=== PATIENT | male | born 1940 | race Caucasian/White ===

== ENCOUNTER 2023-11-28 07:35 | Inpatient (IN) | payer MEDICARE, SELFPAY ==
[2023-11-28] VITALS (79 sets, daily range): BP systolic 62–151; BP diastolic 35–88; BMI 20.8
[2023-11-28] MEDS: TYLENOL/FEVERALL 650 MG RECTAL (04:30)
[2023-11-28 04:42] LABS: % Basophils 0.1 % (0-2); % Immature Granulocytes 0.4 % (0-0.5); % Lymphocytes 1.7 % (20.5-51.1); % Monocytes 0.6 % (1.7-9.3); % Neutrophils 97.2 % (42.2-75.2); Absolute Lymphocytes 0.2 10^3/uL (1.2-3.4); Absolute Monocytes 0.1 10^3/uL (0.1-0.6); Absolute Neutrophils 9.4 10^3/uL (1.4-6.5); Hematocrit 37.7 % (39.0-52.0); Hemoglobin 13.1 g/dL (13.0-18.0); Mean Corp Hgb Conc. 34.7 g/dL (33.0-37.0); Mean Corpuscular Volume 86.5 fL (80.0-94.0); Mean Platelet Volume 9.1 fL (7.4-10.4); Nucleated Red Blood Cells % 0 % (-); Platelet Count 337 10^3/uL (130-400); Red Blood Cell Count 4.36 10^6/uL (4.70-6.10); Red Cell Dist. Width 13.5 % (11.5-14.5); White Blood Cell Count 9.7 10^3/uL (4.8-10.8)
[2023-11-28] MEDS: NSS 2000 IV (04:49)
--- NOTE | 2023-11-28 04:51 | ED.GENMED ---
History of Present Illness
General
Chief Complaint: Fever
Source: patient, ambulance crew, custodial and previous hospital records (Hospitalization September 29 to October 06 of this year for aspiration pneumonia, influenza A, acute CHF, delirium, urinary retention requiring Qiu catheter)
Exam Limitations: clinical condition and dementia
Time Seen by Provider: 11/28/23 04:20
Travel History
Have you had any contact with someone who has COVID-19?: No
Do you have any symptoms of coronavirus? Fever > 100 degrees, chills, cough, shortness of breath, sore throat, loss of taste or smell, muscle aches, or headache?: No
History of Present Illness
History of Present Illness:
This is an 83-year-old gentleman who resides at a local custodial. He has history of dementia, hypertension, chronic CHF with reduced EF at 35 to 40%, BPH with urinary retention requiring chronic indwelling Qiu catheter.
Most recently hospitalized September of this year for acute hypoxic respiratory insufficiency secondary to influenza bronchitis as well as iatrogenic fluid overload and aspiration pneumonia. Was noted to have acute urinary retention requiring Qiu
catheter placement at that time which has remained in place.
According to EMS they were originally called out to the custodial for seizure-like activity. Upon arrival found an elderly gentleman, confused, significantly hot to touch noted to be febrile.
Similar brief seizure-like activity reported during presentation for hospitalization in September and found to have rigors related to fever.
According to EMS patient is currently being treated for a UTI with an antibiotic over the past 2 to 3 days. There is no record of current antibiotic on med list provided from custodial records.
There has been no report of vomiting nor diarrhea. No recent falls nor injuries.
History is limited due to clinical condition and history of dementia.
Upon arrival rectal temp 105.2 �F. No report of antipyretics administered.
Past History
Past History
ED Past Medical History: Asthma, CHF (Chronic CHF with reduced EF at 35 to 40%.), HTN, Hypercholesterolemia and Other (Senile dementia, aspiration pneumonia, BPH-urinary retention requiring Qiu catheter, UTI)
ED Past Surgical History: Other (Deviated septum repair, hernia repair, skin cancer removed from face and head)
Social History
Tobacco: Non-smoker
Alcohol: Occasional
Drug: None
Personal:
Living: custodial
Employment: Retired
Family History
Family History: Other (Noncontributory)
Phy Exam
Physical Exam
Physical Exam:
GENERAL: Elderly frail-appearing gentleman, moderately ill in appearance. Mildly drowsy but briefly opens his eyes to verbal stimuli, answers yes and no questions appropriately.
EYE: pupils equal and reactive. anicteric. There is scant yellowish lid crusting bilaterally but no erythema nor lid edema.
NECK: Supple, nontender, no meningismus, no significant adenopathy. No JVD.
ENT: posterior pharynx is clear, oral mucosa is dry. Lips are significantly dry. TM clear b/l, nares patent.
CARDIAC: Regular rhythm, tachycardic at 150. no murmur.
LUNGS: Very mild resting tachypnea, no cough appreciated. Scant bibasilar rales otherwise clear to auscultation.
ABDOMEN: Soft, nondistended, mild suprapubic tenderness to palpation, Qiu catheter in place with scant blood-tinged urine in qiu bag, no active urine draining. No r/g, no cvat. normoactive BS.
NEUROLOGICAL: Mildly drowsy, answering yes and no questions appropriately, oriented x 1, no focal neuro deficits.
SKIN: Significantly hot to touch and dry, normal color, fair turgor, skin intact. No rash.
MUSCULOSKELETAL: No C/C/E. peripheral pulses are full and equal b/l. No palpable tenderness.
PSYCH: Moderately agitated with painful procedures otherwise cooperative.
Course
Orders/Labs/Results
Orders:
Orders
11/28/23 04:12
Electrocardiogram (*1) Urgent
Reason for Study: Other
Other Reason for Exam: Possible Sepsis
Cardiac Monitoring- Treatment ONCE
EKG- Treatment ONCE
IV Insert/Care/Rem.- Treatment PRN
Acetaminophen [Tylenol/Feverall] 650 mg .ROUTE .STK-MED ONE
O2 Therapy [RESP] Urgent
Titrate/Wean O2 to maintain O2 sat greater than (%): 93
Special Instructions: TO MAINTAIN CONTINUOUS O2 SATS > OR = 93%
Pulse Ox/cont/shift [RESP] Urgent
Quantity: 1
Special Instructions: CONTINUOUS
11/28/23 04:15
Acetaminophen [Tylenol/Feverall] 650 mg .ROUTE .STK-MED ONE
11/28/23 04:22
Complete Blood Count/With Diff Urgent
Comprehensive Metabolic Panel Urgent
Lactic Acid Q4H
Comment: ON ICE, CANCEL 2ND ORDER IF FIRST LACTIC ACID LEVEL <2
Urinalysis Reflex To Culture Urgent
Date Specimen was Collected: 11/28/23
Time Specimen was Collected: 04:12
Urine Microscopic Reflex Cult Urgent
Blood Culture Q30M
LUIS Source: Blood/Venous
Specimen Description:
Comment: FROM 2 SEPARATE SITES
Blood Culture Q30M
LUIS Source: Blood/Venous
Specimen Description:
Comment: FROM 2 SEPARATE SITES
Urine Culture Urgent
LUIS Source: U
Specimen Description:
Date Specimen was Collected: 11/28/23
Time Specimen was Collected: 04:12
11/28/23 04:41
Qiu Placement- Treatment ONCE
Reason for insertion: Chronic Qiu on Admit
0.9% Sodium Chloride 1000 ml [Nss] 2,000 ml IV BOLUS
11/28/23 05:01
CR Chest Portable - 1 View Urgent
Comment:
Reason For Exam: fever, sepsis
Reason Study Needs to be Portable: Patient Unstable
11/28/23 05:27
Cefepime HCl [Maxipime] 2,000 mg IV NOW STA
11/28/23 05:29
Gentamicin Sulfate [Gentamicin] 120 mg 0.9% Sodium Chloride [Nss] 50 ml IV NOW
11/28/23 05:33
NORepinephrine 4 MG/250 ML [Levophed] 4 mg in 250 ml IV NOW
Initial dose in mcg/min, then titrate:: 2
Titrate to keep:: MAP > 65 mmHg
Titrate by mcg/min:: 1-2 mcg/min
Frequency of titrations (minutes):: 5
Maximum dose in ICU in mcg/min:: 30
Maximum dose in IMU in mcg/min:: 8
Maximum dose in IVU in mcg/min:: 4
Begin to taper infusion when:: Remained at goal for 4hrs
Taper by mcg/min:: 1-2 mcg/min
Frequency of taper (minutes) if patient maintains goal:: 30
Taper to off?: Yes
If infusion off & no longer maintaining goal:: Contact Provider
11/28/23 08:15
Lactic Acid Q4H
Comment: ON ICE, CANCEL 2ND ORDER IF FIRST LACTIC ACID LEVEL <2
Abnormal Lab Results
11/28/23
04:22
RBC 4.36 L 10^6/uL
(4.70-6.10)
Hct 37.7 L %
(39.0-52.0)
Absolute Neuts (auto) 9.4 H 10^3/uL
(1.4-6.5)
Absolute Lymphs (auto) 0.2 L 10^3/uL
(1.2-3.4)
Neutrophils % 97.2 H %
(42.2-75.2)
Lymphocytes % 1.7 L %
(20.5-51.1)
Monocytes % 0.6 L %
(1.7-9.3)
Chloride 110 H mmol/L
(98-107)
Carbon Dioxide 15 L mmol/L
(22-30)
BUN 26 H mg/dl
(9-20)
Creatinine 1.8 H mg/dL
(0.7-1.3)
Glucose 132 H mg/dl
(70-99)
Lactic Acid 5.8 H* mmol/L
(0.7-2.0)
Total Bilirubin 2.0 H mg/dl
(0.2-1.3)
Alkaline Phosphatase 180 H U/L
(38-126)
Total Protein 5.9 L g/dl
(6.3-8.2)
Albumin 3.1 L g/dl
(3.5-5.0)
Urine Ketones 1+ A
(Negative)
Ur Occult Blood Reflex 4+ A
(Negative)
Urine Nitrite (Reflex) Positive A
(Negative)
Urine Urobilinogen 2+ A
(Neg - 1+)
Leukocyte Esterase Rfl 2+ A
(Negative)
Urine Albumin (Reflex) 2+ A
(Neg - Trace)
11/28/23 04:22
11/28/23 04:22
Vital Signs
Initial and Last Documented VS:
Initial Vital Signs
Temp Pulse Resp Pulse Ox
105.2 F H 154 30 95
11/28/23 04:13 11/28/23 04:13 11/28/23 04:13 11/28/23 04:13
Last Documented Vital Signs
Temp Pulse Resp BP Pulse Ox
105.2 F H 101 31 96/50 93
11/28/23 04:13 11/28/23 05:00 11/28/23 05:00 11/28/23 05:00 11/28/23 05:00
MDM/Problems Addressed
Differential Diagnosis Includes:
Acute significant febrile illness, tachycardia, borderline hypotension, consistent with SIRS, significant concern for severe sepsis.
Significant clinical suspicion for UTI, urosepsis. Less likely pneumonia.
Rectal Tylenol given, will initiate IV fluid bolus 30 mL/kg.
No output from Qiu catheter and bedside bladder scan reveals at least 300 cc in the bladder thus indicating blocked Qiu catheter.
Will change Qiu catheter and due to custodial report of bloody urine we will place a three-way catheter in preparation for potential need for CBI.
Will check labs including lactic acid, blood cultures, urinalysis and urine culture.
Will check portable chest x-ray.
A call has been placed to custodial for further information, and oriented what antibiotic patient had been placed on the past several days.
According to custodial records patient is full CODE STATUS.
Prior hospitalization complicated by iatrogenic acute CHF due to fluid overload.
Will give initial fluid bolus and then reassess; at this point no indication that IV pressors are needed.
Will plan to initiate IV antibiotics for likely urinary source of fever, sepsis.
Will plan to admit to hospitalist service.
Chronic conditions affecting care: HTN, Cardiomyopathy and Other (Chronic Qiu catheter, chronic debilitated state, chronically resides in a custodial)
*Radiology
Radiology exam reviewed: preliminary read by ED provider (Chest x-ray is unremarkable.)
*Pulse Oximetry
Patient hypoxic: no
*EKG
Interpreted by ED Provider?: Yes
Interpretation: abnormal
Comparison EKG: changes noted (Sinus tachycardia has worsened from 104 September 28, 2023 to now 155 otherwise EKG looks similar and unchanged.)
Rate: tachycardiac
Rhythm: sinus
[place]: left axis deviation
Interval: normal interval
QRS Pattern: normal QRS
Ischemia: non-specific ST changes
*Aviation Neuropsychologist Interpretation
Rate: tachycardiac
Interpretation: abnormal
Rhythm: sinus
*Critical Care Note
Total Time (30-74mins, 75-104mins- exclusive of procedures): 60
comment:
Critical care statement: A total of 60 minutes of critical care time was provided for this patient. This includes management of unstable vital signs, evaluation of the patient at bedside, reviewing the patient's pertinent medical records, discussion
with consultants, review of old EKGs and review of pertinent medical records. This time with separate from time utilized to perform the aforementioned documented procedures
Update Note
Update Note:
11/28/2023 0532 AM
Patient resting comfortably. Sinus tachycardia has resolved to normal sinus rhythm in the 90s.
Moderate hypotension persist despite IV fluid bolus of 30 mL/kg.
Will initiate low-dose Levophed and continue IV fluids.
Urinalysis consistent with UTI.
Acute kidney injury with creatinine of 1.8, normal renal function noted in September at time of discharge.
Lactic acid significantly elevated at 5.8 and with hypotension, tachycardia, fever this is consistent with severe sepsis.
Chest x-ray is unremarkable.
I have spoken with the nurse from the custodial. Patient has not been on recent antibiotics nor treated for recent UTI. Currently not on any antibiotics and she has no record of a recent nor any antibiotics since discharge in September.
Therefore, patient has had no previous episodes of UTIs.
911 was called tonight because she noted patient shaking and he felt warm. Shaking appeared consistent with rigors.
IV cefepime initiated and will give a one-time dose of gentamicin.
Will admit to hospitalist service.
ED Attending Note
-
Portions of this chart may have been created with voice recognition software.� Occasional wrong word or��sound alike� substitutions may have occurred due to the inherent limitations of voice recognition software.
Discharge Plan
Departure
Patient Disposition: Admit
Date of Disposition: 11/28/23
Time of Disposition: 05:31
Admit to: IMU
Admit to doctor: Adams
Presentation/result/management discussed w/ accepting MD/DO: Hospitalist
Condition: Serious
Discharge Problem:
Catheter-associated urinary tract infection, Acute kidney injury, Severe sepsis
Prescriptions:
No Action
citalopram 40 MG tablet
40 mg PO DAILY
cyanocobalamin (vitamin B-12) 1,000 MCG tablet
1,000 mcg PO DAILY
olanzapine 2.5 MG tablet
2.5 mg PO HS
selenium 200 MCG tablet
100 mcg PO Q48H
ascorbic acid (vitamin C) [Vitamin C] 500 MG tablet
1,000 mg PO Q48H
tamsulosin 0.4 MG capsule
0.4 mg PO DAILY
aspirin 81 MG tablet,chewable
81 mg PO MOFR
donepezil 10 mg tablet
10 mg PO HS
calcium carbonate [Calcium 600] 600 mg calcium (1,500 mg) Tablet
600 mg PO BID
buspirone 10 mg tablet
10 mg PO BID
solifenacin 10 mg tablet
10 mg PO DAILY
lovastatin 20 mg Tablet
20 mg PO DAILY
Patient Comments:
09/28/2023: Physician wrote to change to Atorvastatin, has not been picked up yet
lorazepam 1 MG tablet
0.5 mg PO TID PRN (Reason: Mental Health/Anxiety) Qty: 10 0RF
Interventions
Interventions:
*Risk Screen - Suicide Last Done: 11/28/23 04:13
*General Assessment Last Done: 11/28/23 04:13
*Neglect/Abuse Screening Last Done: 11/28/23 04:13
ED- Fall Risk Assessment Last Done: 11/28/23 04:53
ED- Neurological Assessment Last Done: 11/28/23 04:53
ED-Skin Assessment Last Done: 11/28/23 04:53
[2023-11-28 04:52] LABS: ALT (SGPT) 49 U/L (0-50); AST (SGOT) 39 U/L (17-59); Albumin 3.1 g/dl (3.5-5.0); Alkaline Phosphatase 180 U/L (38-126); Blood Urea Nitrogen 26 mg/dl (9-20); Calcium 8.9 mg/dl (8.4-10.2); Carbon Dioxide 15 mmol/L (22-30); Chloride 110 mmol/L (98-107); Estimated Creatinine Clearance 27 ml/min; Glucose 132 mg/dl (70-99); Potassium 4.2 mmol/L (3.5-5.1); Sodium 136 mmol/L (135-145); Total Protein 5.9 g/dl (6.3-8.2); eGFR 36.89
[2023-11-28 05:23] LABS: Urine Albumin 2+ (Neg - Trace); Urine Bilirubin Negative (Negative); Urine Character Very Cloudy (Clear); Urine Color Red; Urine Glucose Negative (Negative); Urine Ketone 1+ (Negative); Urine Leukocyte 2+ (Negative); Urine Nitrite Positive (Negative); Urine Occult Blood 4+ (Negative); Urine Specific Gravity 1.015 (<1.030); Urine Urobilinogen 2+ (Neg - 1+)
[2023-11-28 05:27] LABS: Lactic Acid 5.8 mmol/L (0.7-2.0)
--- NOTE | 2023-11-28 05:36 | EDRN ---
Patients BP trending downwards, repeated first was , second was 84/48, Dr. Daniel aware meds ordered to be given.
[2023-11-28] MEDS: NSS 1000 IV ×2 (05:37→06:54)
[2023-11-28] MEDS: LEVOPHED 250 IV ×3 (05:37→17:03)
[2023-11-28] MEDS: MAXIPIME 2000 MG IV (05:37)
--- NOTE | 2023-11-28 06:00 | EDRN ---
Called pharmacy about antibiotics still not received, was informed they were working on it.
[2023-11-28 06:13] LABS: Urine Amorphous Seen; Urine Bacteria Many (Negative); Urine Mucus Many; Urine Red Blood Cell >100 /HPF (0-2); Urine Squamous Cell >30 /LPF (Few); Urine White Cell >100 /HPF (0-5)
[2023-11-28] MEDS: NSS 500 IV (06:15)
--- NOTE | 2023-11-28 06:15 | EDRN ---
Blood pressure continuing to titrate down even with levophed, Dr. mclaughlin in to see patient, orders to give an additional 500cc bolus of normal saline as wlel as increase levophed
--- NOTE | 2023-11-28 06:19 | HPS.HSE ---
Family Physician
-
Family Physician: Nicko Fulton
Chief Complaint
-
fever
History of Present Illness
83 y/o M with PMHx:
HFrEF
Alzheimer's dementia
Essential hypertension
BPH
Ambulatory dysfunction
who p/w CC fever. Patient has underlying dementia and currently is encephalopathic from septic shock. The patient cannot give a history at this time. History obtained from discussion with the ER attending. As per EMS, initially there was concern
for seizure activity but the patient was found to have rigors upon arrival. He was found to have a fever of 105.2 �F. No reports of any other symptoms.
Medical History
Past Medical History
Past Medical History: Reports Other (as per HPI)
Past Surgical History: Reports Other (N/A)
Social History
Unable to obtain full social history at this time due to: Acuity
Family History
Family History: Not pertinent
Allergies / Home Medications
Allergies reflects when Allergies were last updated in Service Route.
Home Medications with original date entered in Service Route
Allergy/Medication List:
Allergies
Allergy/AdvReac Type Severity Reaction Status Date / Time
amoxicillin trihydrate Allergy nausea,vomi Verified 11/28/23 04:48
[From Augmentin] ting,diarrh
ea
potassium clavula Allergy nausea,vomi Verified 11/28/23 04:48
*RETIRED-06/13/12 ting,diarrh
[From Augmentin] ea
sertraline Allergy Unknown Verified 11/28/23 04:48
stinging insects Allergy Unknown Uncoded 11/28/23 04:48
Home Medications
ascorbic acid (vitamin C) 500 mg tablet (Vitamin C) 1,000 mg PO Q48H Supplement 07/22/21
aspirin 81 mg chewable tablet 81 mg PO MOFR Blood Pressure 07/22/21
citalopram 40 mg tablet 40 mg PO DAILY Mental Health 07/22/21
cyanocobalamin (vitamin B-12) 1,000 mcg tablet 1,000 mcg PO DAILY Supplement 07/22/21
olanzapine 2.5 mg tablet 2.5 mg PO HS Neurological Condition 07/22/21
tamsulosin 0.4 mg capsule 0.4 mg PO DAILY Urinary Issue 07/22/21
buspirone 10 mg tablet 10 mg PO BID Mental Health/Anxiety 09/28/23
calcium carbonate 600 mg calcium (1,500 mg) tablet (Calcium) 600 mg PO BID Supplement 09/28/23
donepezil 10 mg tablet 10 mg PO HS Neurological Condition 09/28/23
lovastatin 20 mg tablet 20 mg PO DAILY High Cholesterol 09/28/23
lorazepam 1 mg tablet 0.5 mg PO TID PRN Mental Health/Anxiety #10 tabs 10/06/23
Review of Systems
-
Unable to obtain full review of systems at this time due to: Acuity
Physical Exam
Vital Signs
Vital Signs
Temp Pulse Resp BP Pulse Ox
101.2 F H 103 22 69/56 92
11/28/23 05:55 11/28/23 06:10 11/28/23 06:10 11/28/23 06:10 11/28/23 06:10
Physical Exam
General: Other (.)
Laboratory Results
-
11/28/23 04:22
11/28/23 04:22
Laboratory Results
Lactic Acid 5.8 mmol/L (0.7-2.0) H* 11/28/23 04:22
Total Bilirubin 2.0 mg/dl (0.2-1.3) H 11/28/23 04:22
AST 39 U/L (17-59) 11/28/23 04:22
ALT 49 U/L (0-50) 11/28/23 04:22
Alkaline Phosphatase 180 U/L (38-126) H 11/28/23 04:22
Impression/Plan
-
Gen: NAD, NCAT, appears chronically ill, + rigors
Eyes: PERRLA, no scleral icterus.
Neck: supple.
CV: RRR, +S1/S2, no m/r/g.
Resp: CTAB, no rales, wheezes, or rhonchi.
Abd: +BS, soft, NT, ND
Skin: No rashes.
Neuro: minimally responsive, non-focal
Psych: calm
RAFFI, acute metabolic encephalopathy, lactic acidosis and septic shock due to acute CAUTI:
-cont IVFs (2.5L NS bolus in ER, will give another 1L now as pt on Levophed at 12 and SBP 70s)
-follow exchanged in ER
-cont Cefepime
-follow BCxs/UCx
-trend Cr, lactic acid
Other problems:
HFrEF
Alzheimer's dementia: cont Aricept/Zyprexa/Celexa/Buspar
Essential hypertension
BPH: cont Flomax once BP improves
Ambulatory dysfunction
FULL
DVT proph: Will order Lovenox for tonight but if hematuria persists will need to stop Lovenox and placed on SCDs only
Total critical care time spent = 41 min
--- NOTE | 2023-11-28 07:03 | EDRN ---
Called pharmacy again, still haven't received antibiotics from them, was informed they would check on it, informed RAMA Graves who is taking over this patient.
[2023-11-28] MEDS: GENTAMICIN 53 MG IV (07:11)
[2023-11-28 07:46] LABS: COVID-19 Antigen Positive (Negative)
--- NOTE | 2023-11-28 08:58 | CON.ID ---
Consultation
-
Date/Time Consultation Requested: 11/28/23 8:21
Date/Time Consultation Performed: 11/27/33 8:58
Requesting Provider: Dr sun
Performing Provider: Dr Brock
Reason for Consultation: fever
Chief Complaint / Past History
Chief Complaint
fever
History of Present Illness
Mr Benitez is an 83 year old male with history of CHF, aspiration pneumonia, BPH with chronic qiu, dementia who presented here from [facility] for rigors - history is limited by the condition of the patient. Qiu in place since September. EMS
reports patient on treatment for UTI x2-3 days - no record of antibiotic on med list from records. No vomiting, diarrhea, falls. No wounds.
Since arrival here Tmax 105.2 rectally and rectal Ts continue, BP hypotensive currently on norepi at 28 mcg/min - increasing, HR stable, wbc 9.7, hbg 13, plt 337, a L shift is noted and no eosinophils are present, Cr 1.8, lactic acid currently 5.8,
t bili 2.0, ast 39, alt 49, alk phos 180, UA with gross hematuria and pyuria, covid ag positive by chart review had at least 3 doses of COVID vaccine in 2020 - unsure of current booster status, CT head w/o contrast: no acute findings - atrophy, CXR:
no acute process first cxr, second - mild pulmonary edema, no pneumonia; cxr today my read: some cephalization, instertial edema more prominent near hilum, no susy infiltrates, blood cultures x2 in progress, urine culture in progress. RN reporting
no wounds.
Past History
Additional Past Medical History:
HFrEF
HTN
Alzheimer's dementia
Essential hypertension
BPH
Ambulatory dysfunction
Additional Past Surgical History:
Deviated septum repair, hernia repair, skin cancer removed from face and head
Allergy History:
amoxicillin trihydrate [From Augmentin] ADR (Verified 11/28/23 04:48)
nausea,vomiting,diarrhea
sertraline Allergy (Verified 11/28/23 04:48)
Unknown
stinging insects Allergy (Uncoded 11/28/23 04:48)
Unknown
Medications Reviewed: Yes
Social History
Tobacco: Non-Smoker
Alcohol: Occasional
Drug: None
Family History
Family History: Not Pertinent
Review of Systems
Review of Systems
Unable to obtain due to the condition of the patient
Vital Signs
Temp Pulse Resp BP Pulse Ox
100.5 F H 98 23 90/57 97
11/28/23 07:15 11/28/23 08:30 11/28/23 08:30 11/28/23 08:30 11/28/23 08:15
Physical Exam
Physical Exam
Constitutional: Acutely Ill and Chronically Ill
Cardiovascular: Regular Rate and S1/S2; Negative Murmur or Rub
Pulmonary: Clear, Symmetric and Non Labored; Negative Wheezes, Rales or Rhonchi
Gastrointestinal: Soft, Non Tender, Non Distended and Normal Bowel Sounds
Genito-Urinary: Hematuria; Negative Suprapubic Tenderness
Skin: Warm and Dry; Negative Rash or Jaundice
Neurological: Awake
Psychological: Calm
Lab / Diagnostic Study Results
11/28/23 04:22
11/28/23 04:22
Abs Immat Gran (auto) 0.0 10^3/uL (0-0.05) 11/28/23 04:22
Absolute Neuts (auto) 9.4 10^3/uL (1.4-6.5) H 11/28/23 04:22
Absolute Lymphs (auto) 0.2 10^3/uL (1.2-3.4) L 11/28/23 04:22
Absolute Monos (auto) 0.1 10^3/uL (0.1-0.6) 11/28/23 04:22
Absolute Basos (auto) 0.0 10^3/uL (0-0.2) 11/28/23 04:22
Immature Gran % 0.4 % (0-0.5) 11/28/23 04:22
Neutrophils % 97.2 % (42.2-75.2) H 11/28/23 04:22
Lymphocytes % 1.7 % (20.5-51.1) L 11/28/23 04:22
Monocytes % 0.6 % (1.7-9.3) L 11/28/23 04:22
Eosinophils % 0.0 % (0-6) 11/28/23 04:22
Basophils % 0.1 % (0-2) 11/28/23 04:22
Lactic Acid 5.8 mmol/L (0.7-2.0) H* 11/28/23 04:22
Ur Squamous Epith Cells >30 /LPF (Few) 11/28/23 04:22
Microbiology Results
Micro:
11/28/23 06:53 Influenza Types A & B (VARGAS) - Final
Nasal Swab Negative for Influenza A & B, NAAT
Negative results must be combined with clinical observations
and patient history.
Nucleic Acid Amplification test (NAAT)performed on the
[email or web address] NOW platform.
11/28/23 04:22 Urine Culture - Pending
Urine
11/28/23 04:22 Blood Culture - Pending
Blood/Venous
11/28/23 04:22 Blood Culture - Pending
Blood/Venous
Assessment / Plan
Septic Shock - rapidly progressive
Likely UTI - most likely cause of progressive shock
RAFFI
Chronic Qiu due to BPH
- Ts to be via a consistent route
- blood cultures x2 in progress
- urine culture in progress, repeat now that qiu exchanged
- qiu has been replaced this admission previous qiu ~2 months old
- renal US
- no history of MDROs on file here
- note dose of gentamicin at 7AM today
- start zosyn, stop cefepime
- follow clinically
COVID-19
Minimal Hypoxemia
- by chart review had at least 3 doses of COVID vaccine in 2020 - unsure of current booster status
- not known to be immunosuppressed
- isolation x10 days from symptom onset, with limited history tentatively from today 11/27-12/07 - reassess if patient able to provide further history in the future
- given history suspect UTI is cause of sepsis rather than covid particularly with very low O2 requirements but profound shock
- will start remdesivir - daily reassessment
- dexamethasone 6 mg PO daily x10 days or until dc
Prognosis guarded in this frail patient
Care Review
Plan reviewed with: Nurse
[2023-11-28] MEDS: PITRESSIN 100 IV ×2 (09:26→17:03)
--- NOTE | 2023-11-28 10:37 | CON.INTV ---
Consultation
Consultation Request
Date/Time Consultation Requested: 11/28/23
Date/Time Consultation Performed: 11/28/23
Medical History
-
History of Present Illness:
Patient is an 83-year-old male with previous history of Alzheimer's dementia, heart failure with reduced ejection fraction, hypertension presenting from alf with encephalopathy. He was noted to be febrile, Tmax 105.2 Fahrenheit with
rigors. Has a prior history of recurrent urinary tract infections, UA indicating possible acute infection. He was also noted to be hypotensive, given 3.5 L of IV normal saline resuscitation. He is now requiring pressors for septic shock. He is
admitted to ICU for refractory sepsis.
Past Medical History
Past Medical History: Other (see list below)
Social History
Tobacco: Non-smoker
Alcohol: None
Drug: None
Family History
Family History: Reviewed & Not Pertinent
Allergies / Home Medications
Allergies
Allergy/AdvReac Type Severity Reaction Status Date / Time
sertraline Allergy Unknown Verified 11/28/23 04:48
amoxicillin trihydrate AdvReac nausea,vomi Verified 11/28/23 09:00
[From Augmentin] ting,diarrh
ea
stinging insects Allergy Unknown Uncoded 11/28/23 04:48
Home Medications
Medication Instructions Recorded Confirmed Last Taken Type
ascorbic acid (vitamin C) 500 mg 1,000 mg PO Q48H Supplement 07/22/21 11/28/23 Unknown History
tablet (Vitamin C)
aspirin 81 mg chewable tablet 81 mg PO MOFR Blood Pressure 07/22/21 11/28/23 09/26/23 History
citalopram 40 mg tablet 40 mg PO DAILY Mental Health 07/22/21 11/28/23 09/28/23 History
cyanocobalamin (vitamin B-12) 1,000 mcg PO DAILY Supplement 07/22/21 11/28/23 Unknown History
1,000 mcg tablet
olanzapine 2.5 mg tablet 2.5 mg PO HS Neurological Condition 07/22/21 11/28/23 09/27/23 History
tamsulosin 0.4 mg capsule 0.4 mg PO DAILY Urinary Issue 07/22/21 11/28/23 09/28/23 History
buspirone 10 mg tablet 10 mg PO BID Mental Health/Anxiety 09/28/23 11/28/23 09/28/23 21:15 History
calcium carbonate 600 mg calcium 600 mg PO BID Supplement 09/28/23 11/28/23 Unknown History
(1,500 mg) tablet (Calcium)
donepezil 10 mg tablet 10 mg PO HS Neurological Condition 09/28/23 11/28/23 09/27/23 History
lovastatin 20 mg tablet 20 mg PO DAILY High Cholesterol 09/28/23 11/28/23 09/28/23 History
lorazepam 1 mg tablet 0.5 mg PO TID PRN Mental 10/06/23 11/28/23 Unknown Rx
Health/Anxiety #10 tabs
Review of Systems
-
History Source: Patient
All other systems: Negative unless noted
Vitals / Labs / Diagnostic Testing
Vital Signs
Temp Pulse Resp BP Pulse Ox
100.5 F H 98 23 90/57 97
11/28/23 07:15 11/28/23 08:30 11/28/23 08:30 11/28/23 08:30 11/28/23 08:15
Lab Data
11/28/23 04:22
Microbiology
11/28/23 06:53 Nasal Swab Influenza Types A & B (VARGAS) - Final
Negative for Influenza A & B, NAAT
Negative results must be combined with clinical observations
and patient history.
Nucleic Acid Amplification test (NAAT)performed on the
[employer] platform.
Diagnostic Testing:
Physical Exam
-
HEENT: Normocephalic, Anicteric and Moist Mucous Membranes
Cardiovascular: S1/S2 and Regular Rhythm
Respiratory: Clear and Non-Labored Respirations
GI: Soft, Non Distended and Non Tender
Neurology: Tremors and Other (eyes closed, agitation, not following commands/answering appropriately)
Skin: Warm and Dry
General: Comfortable and Other (NAD, mitts in place)
Assessment
-
Patient is an 83-year-old male with previous history of Alzheimer's dementia, heart failure with reduced ejection fraction, hypertension presenting from alf with encephalopathy. He was noted to be febrile, Tmax 105.2 Fahrenheit with
rigors. Has a prior history of recurrent urinary tract infections, UA indicating possible acute infection. He was also noted to be hypotensive, given 3.5 L of IV normal saline resuscitation. He is now requiring pressors for septic shock. He is
admitted to ICU for refractory sepsis.
Acute refractory septic shock s/p 3.5L NS now on pressors
Urosepsis
History of recurrent UTIs, +enterococcus urine 2020
Recent admission Sep 2023 at for Flu A, Acute HFrEF
TME 2/2 above
RAFFI, creat 1.8 (baseline 0.8-1.0)
Lactic acidosis
Incidental COVID-19+
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
Senile dementia with behavioral disturbances
Hypertension
Chronic CHF reduced EF LVEF 35 to 40%
BPH
Ambulatory dysfunction
Depression
Former smoker
HLD
Asthma
Alcohol abuse history
Moderate to severe coronary calcifications (CT chest 08/18)
Hernia repair
Plan
Currently lethargic, not answering questions or following commands
Baseline MS reported as confused, history of dementia with depression
Currently placed on restraints/mitts for pulling at lines
Pain/sedation: As needed, avoid if not needed
RASS goals: 0
Hemodynamically unstable, requiring pressors.
Requiring pressors: Max dose Levophed, add vasopressin
Cardiac history reviewed--history of reduced EF 35 to 40%
ECHO reviewed on last admission, proBNP not obtained
Careful IVFs, 3.5L received, hold further volume
Hold home meds
Oxygen needs: stable on room air
Prior history of lung disease: asthma, former smoker, no PFTs for review
Supplemental O2 as indicated to maintain sats > 89%
CXR/CT reviewed indicating chronic changes bilateral but stable on prior
Nebs PRN
NPO, resume diet when able
Groundhand recommendations
Aspiration precautions, HOB > 30 degrees
Speech therapy eval can be considered if at elevated risk
GI prophylaxis if indicated
DHT placement if not able to swallow
RAFFI present likely ATN
Creat at baseline, 0.8-1.0
Void trials
Follow urine output, critical I/Os
Replete electrolytes as needed
Acid/base status: met acid noted, give 2 amps bicarb
Repeat labs this PM
Fever and increased WBC on presentation, suspect underlying urosepsis
Started on empiric antibiotics
Cultures sent/pending
Blood pending
Urine pending, prior urine + enterococcus 2020
MRSA pending
COVID19+ likely incidental as he is stable on room air, CXR appears stable
Placed on RemD but not sure benefit of treatment
Remains in resp iso, continue supportive care
Recent h/o flu A illness in Sep
Follow fever trend, WBC count
Lactate elevated on admission, continue to trend until <2
CBC stable, no signs of bleeding or coagulopathy.
DVT prophylaxis as assessed based on risk, including mechanical SCDs
Can transfuse if indicated for Hb <7, plt < 10
INR WNL
No prior h/o diabetes or thyroid disease
Monitor accuchecks PRN/SS coverage if needed
Hyperglycemia noted, likely steroid induced
Can check HbA1c
Patient Full Code, GOC would be warranted if clinically deteriorating
We will follow
Diagnostic Data
Chest X-Ray: 11/28/23- Heart size is within the limits of normal. The vague area of oval opacity seen in the left lower lung zone on the initial exam earlier today is less well seen, however appears to overlap with the prominent anterior rib end.
CT Scan: CAP 08/08/23- 1. � No acute pulmonary process.
2. � Coronary and aortic atherosclerosis. Ectasia ascending aorta, 4.1 cm maximum diameter.
3. � Mild hepatic fatty infiltration.
4. � Right renal cyst and probable cysts without suspicious features.
5. � Diverticulosis without diverticulitis.
6. � Post repair of ventral hernia without signs of recurrence.
7. � Prostatomegaly. Enlarged prostate exert some mass effect against the undersurface of the urinary bladder.
8. � Probable mild chronic compression deformity T3.
Echo: 09/15/23- 1.� Very technically difficult study with poor endocardial definition. �2.� Grossly normal left ventricular size with mild concentric left ventricular�hypertrophy.� Moderately reduced left ventricular systolic function with�estimated
left ventricular ejection fraction of 35 to 40% by visual estimation.��Wall motion abnormalities assessment is limited by the quality of the study.�3.� Normal right ventricular size and systolic function.�4.� No significant valvular
abnormalities.�5.� Estimated ascending aortic diameter is 4.1 cm�6.� No significant pericardial effusion.
PFT's:
Reports and relevant images were personally reviewed.
-----
Critical Care time 65 mins -- The patient is admitted for acute critical illness for the treatment of vital organ failure and/or prevention of further life-threatening conditions. Total care includes time spent in review of history, physical exam,
medications, hemodynamic/ventilator parameters, laboratory data, imaging and discussion with house staff, pharmacy, respiratory therapy, senior medical transcriptionist, and nursing.
[2023-11-28] MEDS: SODIUM BICARBONATE 50 MEQ IV ×3 (10:56→21:32)
[2023-11-28] MEDS: ZOSYN 50 IV ×3 (11:02→21:32)
[2023-11-28] MEDS: DECADRON 6 MG IV (11:11)
[2023-11-28 13:29] LABS: Lactic Acid 2.7 mmol/L (0.7-2.0)
[2023-11-28 13:30] LABS: ALT (SGPT) 21 U/L (0-50); AST (SGOT) 31 U/L (17-59); Albumin 2.4 g/dl (3.5-5.0); Alkaline Phosphatase 90 U/L (38-126); Blood Urea Nitrogen 24 mg/dl (9-20); Calcium 7.4 mg/dl (8.4-10.2); Carbon Dioxide 21 mmol/L (22-30); Chloride 110 mmol/L (98-107); Estimated Creatinine Clearance 35 ml/min; Glucose 204 mg/dl (70-99); INR 1.19; Magnesium 1.5 mg/dl (1.6-2.3); PT 14.9 Sec (11.4-14.6); Phosphorus 3.1 mg/dl (2.5-4.5); Potassium 3.5 mmol/L (3.5-5.1); Sodium 136 mmol/L (135-145); Total Bilirubin 1.4 mg/dl (0.2-1.3); Total Protein 4.8 g/dl (6.3-8.2); eGFR 49.87
[2023-11-28] MEDS: VEKLURY 250 MG IV (13:34)
[2023-11-28] MEDS: NSS 30 IV (15:03)
[2023-11-28] MEDS: HEPARIN SC (16:41)
[2023-11-28] MEDS: VITAMIN B-12 1000 MCG TUBE (16:42)
[2023-11-28] MEDS: LOW STRENGTH ASPIRIN 81 MG PO (16:42)
[2023-11-28] MEDS: BUSPAR 10 MG TUBE ×2 (17:04→19:50)
[2023-11-28] MEDS: HEPARIN 5000 UNITS SC ×2 (17:04→23:31)
[2023-11-28 17:42] LABS: Lactic Acid 3.5 mmol/L (0.7-2.0)
--- NOTE | 2023-11-28 17:43 | PTCARENOTE ---
0900-Received pt from ED via stretcher.Eyes closed.Pt states,'get away,get off me' when any nursing care given.Pt removing O2 and monitoring equipment.Pt will occasionally state his name and follow commands.ST noted.Levophed and IVF infusing.O2 2l
NC.POX 96%Coarse breath sounds throughout.Incontinent of small brown smear.# way Wylie intact.Urine is bloody.
0930-Right DL PICC placed.Vasopressin initiated as ordered.
1200-No change in assessment noted.
1400-Pt's at bedside.Updates given.
1500-Report given to FOLLOW UP REP.
--- NOTE | 2023-11-28 18:09 | PTCARENOTE ---
Assumed care of pt at 1500. Pt moving with physical stimuli but does not follow commands, minimally responsive. NSR on tele, + pulses. Continuous NIBP in place. Currently on Levo and Vaso gtt's, currently tapering levo dose. L nare DHT intact,
advanced 10cm to the 65 cm sintia. Punch colored urine without clots. [address]. Pt is cachectic and pale. Skin intact. Q2 turns. Restraints in place to prevent removal of IV's and DHT. R DL PICC intact.
[2023-11-28 20:23] LABS: Lactic Acid 4.1 mmol/L (0.7-2.0)
[2023-11-28 20:33] LABS: Blood Urea Nitrogen 24 mg/dl (9-20); Calcium 7.7 mg/dl (8.4-10.2); Carbon Dioxide 17 mmol/L (22-30); Chloride 107 mmol/L (98-107); Estimated Creatinine Clearance 45 ml/min; Glucose 210 mg/dl (70-99); Magnesium 1.7 mg/dl (1.6-2.3); Potassium 4.1 mmol/L (3.5-5.1); Sodium 135 mmol/L (135-145); eGFR > 60.00
--- NOTE | 2023-11-28 20:37 | PTCARENOTE ---
Addendum entered by Sarah Adams RN 11/29/23 04:44:
pt nsr/sb with 1st degree
Addendum entered by Sarah Adams RN 11/29/23 02:02:
protective foams applied to heels, elbow and sacrum.
Original Note:
pt received from previous rn- pt aox1, reoriented. pt given full bed bath, incontinent of stool, qiu draining roberto to blood tinged. plan of care discussed with laurel callejas. updated. education provided to , pt unable to understand,
verbalized understanding. vasopressin and levophed gtts continue as per order to maintain map>65. pt nsr to sb on monitor. on 2LNC, lungs diminished. oral care provided. all safety precautions in place. dubhoff tube in place- flushed, aspirated
stomach contents.
--- NOTE | 2023-11-28 21:19 | VATNOTE ---
called to assess lumen of picc; brisk blood return from both lumens upon check by VAT.
[2023-11-28] MEDS: SODIUM BICARBONATE 1150 MEQ IV (21:32)
[2023-11-28 23:41] LABS: Glucose - Point of Care 146 mg/dl (70-99)
--- NOTE | 2023-11-28 23:43 | PTCARENOTE ---
pt with multiple bms. assessmeent unchanged. remains drowsy and oriented to self. levophed weaned to 2mcg, vasopressin continues. bicarb gtt started as per order. oral care provided.
[2023-11-29] VITALS (43 sets, daily range): BP systolic 72–134; BP diastolic 41–111; BMI 21.2
[2023-11-29] MEDS: ZOSYN 50 IV ×4 (03:58→22:47)
[2023-11-29 04:23] LABS: Hemoglobin 10.3 g/dL (13.0-18.0); Mean Corp Hgb Conc. 34.3 g/dL (33.0-37.0); Mean Corpuscular Hgb 30.3 pg (27.0-31.0); Mean Corpuscular Volume 88.2 fL (80.0-94.0); Mean Platelet Volume 9.7 fL (7.4-10.4); Platelet Count 276 10^3/uL (130-400); Red Cell Dist. Width 13.7 % (11.5-14.5); White Blood Cell Count 38.2 10^3/uL (4.8-10.8)
[2023-11-29 04:31] LABS: INR 1.36; PT 16.6 Sec (11.4-14.6)
[2023-11-29 04:44] LABS: Lactic Acid 1.2 mmol/L (0.7-2.0)
--- NOTE | 2023-11-29 04:44 | PTCARENOTE ---
levophed weaned off, labs sent. no change in assessment.
[2023-11-29 04:45] LABS: ALT (SGPT) 19 U/L (0-50); AST (SGOT) 26 U/L (17-59); Albumin 2.1 g/dl (3.5-5.0); Alkaline Phosphatase 81 U/L (38-126); Blood Urea Nitrogen 27 mg/dl (9-20); Calcium 7.5 mg/dl (8.4-10.2); Carbon Dioxide 24 mmol/L (22-30); Chloride 109 mmol/L (98-107); Direct Bilirubin 0.4 mg/dl (0.0-0.4); Estimated Creatinine Clearance 50 ml/min; Glucose 112 mg/dl (70-99); Potassium 3.9 mmol/L (3.5-5.1); Sodium 135 mmol/L (135-145); Total Protein 4.5 g/dl (6.3-8.2); eGFR > 60.00
[2023-11-29 05:28] LABS: Glucose - Point of Care 119 mg/dl (70-99)
[2023-11-29] MEDS: PITRESSIN 100 IV (05:47)
--- NOTE | 2023-11-29 07:09 | W.PN.INTV ---
Today's Communication / Plan
Recommendations
Weaning down on pressors, stop vasopressin, add midodrine
Blood cultures with proteus which suggests urosepsis, urine pending
Continue abx per ID, can likely stop COVID treatment (stable on room air/no changes on cxr)
Stop IV steroids
PT/OT if applicable
Advance diet via TFs/DHT
Assessment
-
Patient is an 83-year-old male with previous history of Alzheimer's dementia, heart failure with reduced ejection fraction, hypertension presenting from long-term with encephalopathy. He was noted to be febrile, Tmax 105.2 Fahrenheit with
rigors. Has a prior history of recurrent urinary tract infections, UA indicating possible acute infection. He was also noted to be hypotensive, given 3.5 L of IV normal saline resuscitation. He is now requiring pressors for septic shock. He is
admitted to ICU for refractory sepsis.
Acute refractory septic shock s/p 3.5L NS now on pressors
Urosepsis
History of recurrent UTIs, +enterococcus urine 2020
Recent admission Sep 2023 at for Flu A, Acute HFrEF
TME 2/2 above
RAFFI, creat 1.8 (baseline 0.8-1.0)
Lactic acidosis
Incidental COVID-19+
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
Senile dementia with behavioral disturbances
Hypertension
Chronic CHF reduced EF LVEF 35 to 40%
BPH
Ambulatory dysfunction
Depression
Former smoker
HLD
Asthma
Alcohol abuse history
Moderate to severe coronary calcifications (CT chest 08/18)
Hernia repair
Plan
Currently lethargic, not answering questions or following commands
Baseline MS reported as confused, history of dementia with depression
Currently placed on restraints/mitts for pulling at lines
Pain/sedation: As needed, avoid if not needed
RASS goals: 0
Hemodynamically unstable, requiring pressors.
Requiring pressors: Max dose Levophed, vasopressin--improved now on levo @4, stop vaso
Cardiac history reviewed--history of reduced EF 35 to 40%
ECHO reviewed on last admission, proBNP not obtained
Careful IVFs, 3.5L received, hold further volume
Hold home meds until improved
Oxygen needs: stable on room air
Prior history of lung disease: asthma, former smoker, no PFTs for review
Supplemental O2 as indicated to maintain sats > 89%
CXR/CT reviewed indicating chronic changes bilateral but stable on prior
Nebs PRN
DHT in place, TFs to start/advance as tolerated
Car Wash Supervisor recommendations
Aspiration precautions, HOB > 30 degrees
Speech therapy eval can be considered if at elevated risk
GI prophylaxis if indicated
RAFFI present likely ATN--improving
Creat at baseline, 0.8-1.0
Void trials
Follow urine output, critical I/Os
Replete electrolytes as needed
Repeat labs improving
Fever and increased WBC on presentation, suspect underlying urosepsis
Started on empiric antibiotics
Cultures sent/pending
Blood + Proteus
Urine +GNB likely proteus
prior urine + enterococcus 2020
MRSA pending
COVID19+ likely incidental as he is stable on room air, CXR appears stable
Placed on RemD but not sure benefit of treatment
Remains in resp iso, continue supportive care
Recent h/o flu A illness in Sep
Follow fever trend, WBC count
Lactate elevated on admission, continue to trend until <2
CBC stable, no signs of bleeding or coagulopathy.
DVT prophylaxis as assessed based on risk, including mechanical SCDs
Can transfuse if indicated for Hb <7, plt < 10
INR WNL
No prior h/o diabetes or thyroid disease
Monitor accuchecks PRN/SS coverage if needed
Hyperglycemia noted, likely steroid induced
Patient Full Code, GOC would be warranted if clinically deteriorating
Diagnostic Data
Chest X-Ray: 11/28/23- Heart size is within the limits of normal. The vague area of oval opacity seen in the left lower lung zone on the initial exam earlier today is less well seen, however appears to overlap with the prominent anterior rib end.
CT Scan: CAP 08/08/23- 1. � No acute pulmonary process.
2. � Coronary and aortic atherosclerosis. Ectasia ascending aorta, 4.1 cm maximum diameter.
3. � Mild hepatic fatty infiltration.
4. � Right renal cyst and probable cysts without suspicious features.
5. � Diverticulosis without diverticulitis.
6. � Post repair of ventral hernia without signs of recurrence.
7. � Prostatomegaly. Enlarged prostate exert some mass effect against the undersurface of the urinary bladder.
8. � Probable mild chronic compression deformity T3.
Echo: 09/15/23- 1.� Very technically difficult study with poor endocardial definition. �2.� Grossly normal left ventricular size with mild concentric left ventricular�hypertrophy.� Moderately reduced left ventricular systolic function with�estimated
left ventricular ejection fraction of 35 to 40% by visual estimation.��Wall motion abnormalities assessment is limited by the quality of the study.�3.� Normal right ventricular size and systolic function.�4.� No significant valvular
abnormalities.�5.� Estimated ascending aortic diameter is 4.1 cm�6.� No significant pericardial effusion.
PFT's:
Reports and relevant images were personally reviewed.
-----
Critical Care time 35 mins -- The patient is admitted for acute critical illness for the treatment of vital organ failure and/or prevention of further life-threatening conditions. Total care includes time spent in review of history, physical exam,
medications, hemodynamic/ventilator parameters, laboratory data, imaging and discussion with house staff, pharmacy, respiratory therapy, family services manager, and nursing.
Subjective Dataa
Subjective Data
Date of Service:
Date of Service: November 29, 2023
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
Subjective:
No acute events, remains in isolation
Pressors are weaning down to near off
Objective Data
Data Reviewed
Vital Signs / I&O / Oxygen:
Vital Signs
Temp Pulse Resp BP Pulse Ox
98.2 F 74 20 103/65 96
11/29/23 03:01 11/29/23 06:30 11/29/23 06:30 11/29/23 06:11 11/29/23 06:30
Intake and Output
11/28/23 11/29/23 11/30/23
06:59 06:59 06:59
Intake Total 1566.5 / 1566.5
Output Total 300 / 300 1130 / 1130
Balance -300 / -300 436.5 / 436.5
SaO2 96
Nasal Cannula flow liters per 2
minute
Physical Exam
General: Comfortable, Poor Appetite and Other (chronically ill appearing)
HEENT: Normocephalic, Anicteric and Moist Mucous Membranes
Cardiovascular: S1-S2 and Regular Rhythm
Respiratory: Clear and Non-Labored Respirations
GI: Soft, Non Distended and Non Tender
Neurology: Lethargic, Depressed and Other (withdrawn appearing, not answering/following commands consistently)
Skin: Warm and Dry
Labs/Micro/Reports
Lab Data
11/29/23 04:05
11/29/23 04:05
Laboratory Results
11/28/23 11/29/23
12:52 04:05
PT 14.9 H 16.6 H
INR 1.19 1.36
Microbiology
11/28/23 04:22 Blood/Venous Blood Culture - Preliminary
Proteus species
11/28/23 04:22 Blood/Venous Gram Stain - Final
11/28/23 04:22 Blood/Venous Blood Culture - Preliminary
Positive culture in progress
11/28/23 04:22 Blood/Venous Gram Stain - Final
11/28/23 06:53 Nasal Swab Influenza Types A & B (VARGAS) - Final
Negative for Influenza A & B, NAAT
Negative results must be combined with clinical observations
and patient history.
Nucleic Acid Amplification test (NAAT)performed on the
[employer] platform.
--- NOTE | 2023-11-29 08:15 | W.PN.HOSP.TC ---
Today's Communication/Plan
-
Wean vasopressin. Continue with antibiotics.
Continue with COVID-19 therapeutics-Decadron and remdesivir.
Change IV fluids to D5 half-normal.
Obtain speech eval.
Assessment / Plan
Assessment / Plan
Septic shock-suspected source. He is COVID-19 positive unclear its role. Hemodynamically improving. Off of Levophed. Wean vasopressin. Nonoliguric. Continue with IV fluid support.
Proteus bacteremia-subspecies identification pending. Suspected source. Urine culture pending. Continue with empirical antibiotics. ID following.
Severe leukocytosis- sec to infection .Follow with tx.
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 Catheter exchanged on this admission.
Severe lactic acidosis secondary to sepsis-resolved
COVID-19 positivity-in view of sepsis picture we will treat as possible active infection. On steroids and remdesivir. Continue with quarantine.
Acute kidney injury-suspect secondary to sepsis +_ prerenal. No evidence of obstruction on renal ultrasound. Improved creatinine with better hemodynamics. Creatinine down to 1.0
Dementia-unknown baseline. Patient currently awake and alert. Not conversational. Question raised about acute metabolic encephalopathy on admission. Follow with patient's family regarding cognition changes.
Anemia-changes in the H&H noted suspect probably dilutional. No obvious external bleeding. Continue to follow.
HFrEF-currently hypotensive. Clinically no evidence of CHF decompensation. Not on diuretics normally. Continue to follow weights and I&O's. Last known echo from August 2023 shows EF of 35 to 40% and no significant valvular abnormalities.
Other problems:
Alzheimer's dementia: cont Aricept/Zyprexa/Celexa/Buspar
Essential hypertension -hold blood pressure medications for now.
BPH: cont Flomax once BP improves
Ambulatory dysfunction
FULL
DVT proph: Continue with Lovenox
Discussed with SPECIAL SERVICE OFFICER
Left message to on her voicemail
Total Critical Care Time_32____ minutes. I was immediately available to the patient and staff. I personally examined, reviewed labs, diagnostic images/reports, interpretations, treatment plans, discussed patient care with other providers and
family or caregivers (if patient is unable to make decisions), entered orders as appropriate and documented the medical record.
Anticipated Discharge: > 48 hours
Subjective/Interval History
-
Date of Service: November 29, 2023
Patient is alert. Does not follow any commands. Not agitated. Has a history of dementia.
Keeps saying 'no' to every question asked.
Discussed with RN at bedside-no agitation. Has been off of Levophed . Currently on vasopressin.
Objective Data
-
Labs:
Laboratory Results
11/28/23 11/29/23
20:00 04:05
WBC 38.2 H
Hgb 10.3 L D
Hct 30.0 L
Plt Count 276
PT 16.6 H
INR 1.36
Sodium 135 135
Potassium 4.1 3.9
Chloride 107 109 H
Carbon Dioxide 17 L 24
BUN 24 H 27 H
Creatinine 1.1 1.0
Glucose 210 H 112 H
Calcium 7.7 L 7.5 L
Total Bilirubin 1.0
AST 26
ALT 19
Alkaline Phosphatase 81
Vital Signs:
Vital Signs
Temp Pulse Resp BP Pulse Ox
99.3 F 74 20 103/65 96
11/29/23 07:33 11/29/23 06:30 11/29/23 06:30 11/29/23 06:11 11/29/23 06:30
I&O
11/28/23 11/29/23 11/30/23
06:59 06:59 06:59
Intake Total 1566.5 / 1566.5
Output Total 300 / 300 1130 / 1130
Balance -300 / -300 436.5 / 436.5
Review of Systems
-
Unable to obtain full review of systems at this time due to: Dementia
Physical Exam
-
General: No Apparent Distress
HEENT: Moist Mucous Membranes
Respiratory: Clear to Auscultation (Anteriorly)
Cardiac: Regular Rhythm and S1/S2; Negative Tachycardic
GI: Soft and Normal Bowel Sounds
Musculoskeletal: No Edema
Neuro: Awake and Alert; Negative Oriented, No Motor Deficits (Difficult exam but moves 4 limbs) or Tremors
Psych: Calm and Confused; Negative Agitated
Data Reviewed
-
Labs: Labs Reviewed by me
[2023-11-29] MEDS: LIPITOR 10 MG TUBE (08:26)
[2023-11-29] MEDS: DECADRON 6 MG IV (08:26)
[2023-11-29] MEDS: VITAMIN B-12 1000 MCG TUBE (08:27)
[2023-11-29] MEDS: HEPARIN 5000 UNITS SC ×3 (08:27→23:45)
[2023-11-29] MEDS: BUSPAR 10 MG TUBE ×2 (08:27→20:02)
--- NOTE | 2023-11-29 08:40 | W.PN.ID1 ---
Date of Service
Date of Service: November 29, 2023
Today's Communication
cont zosyn pending sensi
continue remdesivir/dexa with daily reassessments
Assessment / Plan
Septic Shock - rapidly improving
Leukocytosis - at least partially due to steroids
Likely UTI - most likely cause of progressive shock
RAFFI - resolving
Chronic Qiu due to BPH
- blood cultures x2 - proteus
- urine cultures in progress - still most likely source of bacteremia
- qiu has been replaced this admission
- renal US - no obstruction
- continue zosyn pending sensitivities
- follow clinically
COVID-19
Hypoxemia - sating 80s-low 90s on 2L during my eval, team will record O2 requirements through the day
- by chart review had at least 3 doses of COVID vaccine in 2020 - unsure of current booster status; patient states none but may not be reliable
- not known to be immunosuppressed
- isolation x10 days from symptom onset, with limited history tentatively from today 11/27-12/07 - reassess if patient able to provide further history in the future
- suspect UTI is cause of sepsis rather than covid
- continue remdesivir for now - daily reassessment
- dexamethasone 6 mg PO daily - daily reassessment
Chief Complaint
-: UTI
Subjective / Review of Systems
febrile overnight to 101.2
BP - norepi stopped, vasopressin on
O2 reqs mostly not recorded yesterday, sating 80s-low 90s on 2L on my exam
wbc 38 today on steroids
hgb 10
cr 1.0 - improving
blood cultures proteus
answers some questions appropriately then closes his eyes and stops responding when I mention covid - seems to be ignoring me.
Vital Signs / Physical Exam
Vital Signs
Vital Signs
Temp Pulse Resp BP Pulse Ox
99.3 F 74 20 103/65 96
11/29/23 07:33 11/29/23 06:30 11/29/23 06:30 11/29/23 06:11 11/29/23 06:30
Physical Exam
Constitutional: No Acute Distress and Chronically Ill
Cardiovascular: Regular Rate and S1/S2; Negative Murmur or Rub
Pulmonary: Clear and Symmetric; Negative Wheezes or Rales
Gastrointestinal: Soft, Non Tender, Non Distended and Normal Bowel Sounds
Genito-Urinary: Negative Suprapubic Tenderness
Skin: Warm and Dry; Negative Rash or Jaundice
Neurological: Awake
Objective Data
Lab Data
Lab Results
11/29/23 04:05
11/29/23 04:05
PT 16.6 Sec (11.4-14.6) H 11/29/23 04:05
INR 1.36 11/29/23 04:05
Estimated Creat Clear 50 ml/min 11/29/23 04:05
Lactic Acid 1.2 mmol/L (0.7-2.0) 11/29/23 04:05
Total Bilirubin 1.0 mg/dl (0.2-1.3) 11/29/23 04:05
AST 26 U/L (17-59) 11/29/23 04:05
ALT 19 U/L (0-50) 11/29/23 04:05
Alkaline Phosphatase 81 U/L (38-126) 11/29/23 04:05
Most recent labs reviewed.
Micro Results:
11/28/23 04:22 Blood Culture - Preliminary
Blood/Venous Proteus species
Gram Stain - Final
11/28/23 04:22 Blood Culture - Preliminary
Blood/Venous Proteus species
Gram Stain - Final
11/28/23 12:54 Urine Culture - Pending
Urine
11/28/23 12:52 MRSA Screen - Pending
Nose
11/28/23 06:53 Influenza Types A & B (VARGAS) - Final
Nasal Swab Negative for Influenza A & B, NAAT
Negative results must be combined with clinical observations
and patient history.
Nucleic Acid Amplification test (NAAT)performed on the
[employer] platform.
11/28/23 04:22 Urine Culture - Pending
Urine
Care Review
Plan reviewed with: Nurse
--- NOTE | 2023-11-29 10:11 | PTCARENOTE ---
pt awake and confused x 2 , afebrile , 99.1 , NSR on monitor with prolong QT , BP 94/55 on vasopressin 0.03 mcg , pt was weaned off at 0830 , goal is to have map of 65 , pt had a speech eval and tolerated well for regular diet and thin liquids , pt
does have a [facility] in currently for medications , at 0845, pt blood pressure dropped into the 70s with a map of 50s , Dr Hunter here and pt was restarted on Levophed to keep map of 65, he is currently at 4mcg BP is 105/49 , urine output adequate .
[2023-11-29] MEDS: D5/0.45%NACL 1000 IV ×2 (10:27→22:47)
[2023-11-29] MEDS: ProAmatine 5 MG PO (10:27)
--- NOTE | 2023-11-29 11:33 | PTOTSP ---
ST Dysphagia Evaluation
Moderate oral dysphagia; confusion, slow bolus manipulation. Cog-linguistic deficits; dementia e/b current mental status
Pt received asleep awoke to verbal/tactile stim. HOB raised upright for PO trials of puree and thin liquids. Answering 'no' when asked if he wants to eat/drink however once trials were provided he opened his mouth. Demo adequate oral
access/containment, mildly prolonged bolus manipulation and bolus was orally cleared; double swallows noted. Thin liquids by straw sip swallow appears prompt. No change in vocal quality and no overt s/sx of aspiration observed.
Recommend
1. Puree (L4) and Thin liquids
2. Aspiration precautions and feeding assist
3. Small bites and slow rate
4. Crush meds into apple sauce
5. OUTSIDE PHYSICAL DAMAGE APPRAISER following
Spoke w/ RN and chat to physician re: eval findings and recommendations
--- NOTE | 2023-11-29 11:36 | PTCARENOTE ---
at 1030 pt was placed on the hemisphere monitor, his CO 3.5, CI 2.0 , SVR 1718 art pressure 113/55 map 74 , he is currently on Levophed at 4mcg
[2023-11-29] MEDS: VEKLURY 250 MG IV (12:47)
[2023-11-29 12:57] LABS: Glucose - Point of Care 109 mg/dl (70-99)
--- NOTE | 2023-11-29 13:10 | PTCARENOTE ---
pt continues on Levophed at 4mcg , he pulled out his feeding tube while he was being turned in bed , pt is now written for a puree diet with assistance on feeding
--- NOTE | 2023-11-29 13:21 | CM ---
CM following re: discharge planning.
Discussed in Rounds, reviewed pt's chart.
Pt is an 83 year old male, admitted with primary dx of Septic shock.
The patient is confused and unable to participate in the initial assessment. The patient resides with his spouse in a ranc[place] with a walk out basement. Pt is admitted from [facility] where he was for a short term rehab.
CM left a message to pt's spouse to get more information on pt's psychosocial background and to discuss a discharge plan.
CM spoke to [facility] liaison and she stated that pt has been at [facility] from September 29 of this year, w/c bound, did not meet criteria to participate in skilled services and was private paid for at least a week. Per liaison,
pt's spouse is not cooperative with Medicaid application process. per liaison, pt will be accepted back under private pay source and if pt's spouse participates in Medicaid application.
Awaiting for call back from pt's spouse.
D/c plan: uncertain at this time. [facility] for a fdc care can be a plan.
CM will follow with discharge plan updates as hospitalization progresses
[2023-11-29] MEDS: NSS 30 IV (13:57)
[2023-11-29] MEDS: LEVOPHED 250 IV (13:58)
[2023-11-29] MEDS: NOVOLOG FLEXPEN-MODERATE RESISTANCE SC (17:34)
--- NOTE | 2023-11-29 17:42 | PTCARENOTE ---
no change in assessments , at bedside and updated on plan of care and condition
[2023-11-29 17:44] LABS: Glucose - Point of Care 122 mg/dl (70-99)
[2023-11-29] MEDS: ARICEPT 10 MG PO (20:02)
--- NOTE | 2023-11-29 20:32 | PTCARENOTE ---
pt received from previous rn- pt aox1, follows minimal commands, turned and repositioned. oral and qiu care provided. rectal trumpet in place for freuqent loose stools. remains on nasal cannula, sinus rhythm with pvcs and prolong qt on monitor.
levophed at 2mcg, ivf continue. all safety precautions in place. call aleman in reach. pt reoriented. education provided to - verbalized understanding.
[2023-11-29 21:54] LABS: Glucose - Point of Care 135 mg/dl (70-99)
[2023-11-30] VITALS (14 sets, daily range): BP systolic 99–135; BP diastolic 60–87; BMI 21.7
--- NOTE | 2023-11-30 00:20 | PTCARENOTE ---
0000 assessment unchanged. levophed weaned off, map maintaining greater than 65.
[2023-11-30] MEDS: ZOSYN 50 IV ×2 (04:30→09:10)
[2023-11-30 04:42] LABS: Hematocrit 30.1 % (39.0-52.0); Hemoglobin 10.5 g/dL (13.0-18.0); Mean Corp Hgb Conc. 34.9 g/dL (33.0-37.0); Mean Platelet Volume 9.7 fL (7.4-10.4); Platelet Count 259 10^3/uL (130-400); Red Cell Dist. Width 13.6 % (11.5-14.5); White Blood Cell Count 39.1 10^3/uL (4.8-10.8)
--- NOTE | 2023-11-30 05:04 | PTCARENOTE ---
0400- assessment unchanged. pt with frequent bowel movements throughout shift. full bed bath and chg provided. remains on ivf and off levophed. all safety precautions in place. labs sent as per order.
[2023-11-30 05:36] LABS: Blood Urea Nitrogen 29 mg/dl (9-20); Calcium 7.8 mg/dl (8.4-10.2); Carbon Dioxide 23 mmol/L (22-30); Chloride 108 mmol/L (98-107); Estimated Creatinine Clearance 57 ml/min; Glucose 108 mg/dl (70-99); Potassium 3.7 mmol/L (3.5-5.1); Sodium 135 mmol/L (135-145); eGFR > 60.00
--- NOTE | 2023-11-30 07:12 | W.PN.INTV ---
Today's Communication / Plan
Recommendations
Off pressors, improved
Advance diet as tolerated, speech eval for PO intake
Abx per ID
Agree with stopping COVID treatment, continue supportive care
Transfer to [facility], we will sign off upon transfer
Assessment
-
Patient is an 83-year-old male with previous history of Alzheimer's dementia, heart failure with reduced ejection fraction, hypertension presenting from [facility] with encephalopathy. He was noted to be febrile, Tmax 105.2 Fahrenheit with
rigors. Has a prior history of recurrent urinary tract infections, UA indicating possible acute infection. He was also noted to be hypotensive, given 3.5 L of IV normal saline resuscitation. He is now requiring pressors for septic shock. He is
admitted to ICU for refractory sepsis.
Acute refractory septic shock s/p 3.5L NS now on pressors
Urosepsis/proteus and pseudomonas UTI
History of recurrent UTIs, +enterococcus urine 2020
Recent admission Sep 2023 at for Flu A, Acute HFrEF
TME 2/2 above
RAFFI, creat 1.8 (baseline 0.8-1.0)
Lactic acidosis
Incidental COVID-19+
Conditions present [employer]
Senile dementia with behavioral disturbances
Hypertension
Chronic CHF reduced EF LVEF 35 to 40%
BPH
Ambulatory dysfunction
Depression
Former smoker
HLD
Asthma
Alcohol abuse history
Moderate to severe coronary calcifications (CT chest 08/18)
Hernia repair
Plan
Currently lethargic, not answering questions or following commands
Baseline MS reported as confused, history of dementia with depression
Currently placed on restraints/mitts for pulling at lines
Pain/sedation: As needed, avoid if not needed
RASS goals: 0
Hemodynamically unstable, requiring pressors--resolved/weaned to off last 24 hours
Cardiac history reviewed--history of reduced EF 35 to 40%
ECHO reviewed on last admission, proBNP not obtained
Careful IVFs, 3.5L received, hold further volume
Hold home meds until improved
Oxygen needs: stable on room air
Prior history of lung disease: asthma, former smoker, no PFTs for review
Supplemental O2 as indicated to maintain sats > 89%
CXR/CT reviewed indicating chronic changes bilateral but stable on prior
Nebs PRN
DHT in place, TFs to start/advance as tolerated
Butt Presser recommendations
Aspiration precautions, HOB > 30 degrees
Speech therapy eval
GI prophylaxis if indicated
RAFFI present likely ATN--improving
Creat at baseline, 0.8-1.0
Void trials
Follow urine output, critical I/Os
Replete electrolytes as needed
Repeat labs improving
Fever and increased WBC on presentation, suspect underlying urosepsis
Started on empiric antibiotics, ID following change to Keflex
Cultures sent/pending
Blood + Proteus
Urine + proteus/pseudomonas
prior urine + enterococcus 2020
MRSA neg
COVID19+ likely incidental as he is stable on room air, CXR appears stable
Would stop steroids and RemD, supportive care
Recent h/o flu A illness in Sep
Follow fever trend, WBC count
Lactate elevated on admission, continue to trend until <2
CBC stable, no signs of bleeding or coagulopathy.
DVT prophylaxis as assessed based on risk, including mechanical SCDs
Can transfuse if indicated for Hb <7, plt < 10
INR WNL
No prior h/o diabetes or thyroid disease
Monitor accuchecks PRN/SS coverage if needed
Hyperglycemia noted, likely steroid induced
Patient Full Code, GOC would be warranted if clinically deteriorating
Diagnostic Data
Chest X-Ray: 11/28/23- Heart size is within the limits of normal. The vague area of oval opacity seen in the left lower lung zone on the initial exam earlier today is less well seen, however appears to overlap with the prominent anterior rib end.
CT Scan: CAP 08/08/23- 1. � No acute pulmonary process.
2. � Coronary and aortic atherosclerosis. Ectasia ascending aorta, 4.1 cm maximum diameter.
3. � Mild hepatic fatty infiltration.
4. � Right renal cyst and probable cysts without suspicious features.
5. � Diverticulosis without diverticulitis.
6. � Post repair of ventral hernia without signs of recurrence.
7. � Prostatomegaly. Enlarged prostate exert some mass effect against the undersurface of the urinary bladder.
8. � Probable mild chronic compression deformity T3.
Echo: 09/15/23- 1.� Very technically difficult study with poor endocardial definition. �2.� Grossly normal left ventricular size with mild concentric left ventricular�hypertrophy.� Moderately reduced left ventricular systolic function with�estimated
left ventricular ejection fraction of 35 to 40% by visual estimation.��Wall motion abnormalities assessment is limited by the quality of the study.�3.� Normal right ventricular size and systolic function.�4.� No significant valvular
abnormalities.�5.� Estimated ascending aortic diameter is 4.1 cm�6.� No significant pericardial effusion.
PFT's:
Reports and relevant images were personally reviewed.
-----
Critical Care time 35 mins -- The patient is admitted for acute critical illness for the treatment of vital organ failure and/or prevention of further life-threatening conditions. Total care includes time spent in review of history, physical exam,
medications, hemodynamic/ventilator parameters, laboratory data, imaging and discussion with house staff, pharmacy, respiratory therapy, golf technician, and nursing.
Subjective Dataa
Subjective Data
Date of Service:
Date of Service: November 30, 2023
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
Subjective:
doing well this AM
off pressors
MS remains the same
Objective Data
Data Reviewed
Vital Signs / I&O / Oxygen:
Vital Signs
Temp Pulse Resp BP Pulse Ox
98 F 58 23 124/75 94
11/30/23 05:03 11/30/23 06:15 11/30/23 06:15 11/30/23 06:00 11/30/23 06:15
Intake and Output
11/29/23 11/30/23 12/01/23
06:59 06:59 06:59
Intake Total 1566.5 / 1625.5 2579.0 / 2579.0
Output Total 1130 / 1130 1400 / 1400
Balance 436.5 / 495.5 1179.0 / 1179.0
SaO2 94
Nasal Cannula flow liters per 2
minute
Physical Exam
General: Comfortable, Poor Appetite and Other (chronically ill appearing)
HEENT: Normocephalic, Anicteric and Moist Mucous Membranes
Cardiovascular: S1-S2 and Regular Rhythm
Respiratory: Clear and Non-Labored Respirations
GI: Soft, Non Distended and Non Tender
Neurology: Lethargic, Depressed and Other (withdrawn appearing, not answering/following commands consistently)
Skin: Warm and Dry
Labs/Micro/Reports
Lab Data
11/30/23 04:35
11/30/23 04:35
Microbiology
11/28/23 04:22 Blood/Venous Blood Culture - Preliminary
Proteus species
11/28/23 04:22 Blood/Venous Gram Stain - Final
11/28/23 04:22 Urine Urine Culture - Preliminary
Gram negative bacilli
11/28/23 12:52 Nose MRSA Screen - Final
No Methicillin Resistant Staphylococcus aureus isolated.
11/28/23 12:54 Urine Urine Culture - Preliminary
11/28/23 04:22 Blood/Venous Blood Culture - Preliminary
Proteus species
11/28/23 04:22 Blood/Venous Gram Stain - Final
11/28/23 06:53 Nasal Swab Influenza Types A & B (VARGAS) - Final
Negative for Influenza A & B, NAAT
Negative results must be combined with clinical observations
and patient history.
Nucleic Acid Amplification test (NAAT)performed on the
[employer] platform.
--- NOTE | 2023-11-30 08:06 | W.PN.HOSP.TC ---
Today's Communication/Plan
-
Tx to med surg.
Assessment / Plan
Assessment / Plan
Septic shock-secondary to source. He is COVID-19 positive unclear its role. Hemodynamically improved. Off of vasopressors.
Proteus bacteremia UTI-subspecies identification pending. Urine culture pending. Continue with empirical antibiotics. ID following.
Severe leukocytosis- sec to infection .Follow with tx.
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 Catheter exchanged on this admission.
Severe lactic acidosis secondary to sepsis-resolved
COVID-19 positivity-in view of sepsis picture we will treat as possible active infection. On steroids and remdesivir. Continue with quarantine.
Acute kidney injury-suspect secondary to sepsis +_ prerenal. No evidence of obstruction on renal ultrasound. Improved creatinine with better hemodynamics. Creatinine down to baseline.
Dementia-unknown baseline. Patient currently awake and alert. Not conversational today as well. Question raised about acute metabolic encephalopathy on admission. Follow with patient's family regarding cognition changes.
Anemia-changes in the H&H noted suspect probably dilutional. No obvious external bleeding. Repeat H&H stable.
HFrEF-Clinically no evidence of CHF decompensation. Not on diuretics normally. Continue to follow weights and I&O's. Last known echo from August 2023 shows EF of 35 to 40% and no significant valvular abnormalities.
Other problems:
Alzheimer's dementia: cont Aricept/Zyprexa/Celexa/Buspar
Essential hypertension -hold blood pressure medications for now.
BPH: cont Flomax once BP improves
Ambulatory dysfunction
FULL
DVT proph: Continue with Lovenox
Discussed with PLYWOOD PATCHER
Transfer to [facility].
Left message to ;had spoken to her yesterday about the clincial diagnosis,treatments plans.
Anticipated Discharge: > 48 hours
Subjective/Interval History
-
Date of Service: November 30, 2023
Off vasopressors.
Alert. Minimally conversive again today.
Objective Data
-
Labs:
Laboratory Results
11/30/23
04:35
WBC 39.1 H
Hgb 10.5 L
Hct 30.1 L
Plt Count 259
Sodium 135
Potassium 3.7
Chloride 108 H
Carbon Dioxide 23
BUN 29 H
Creatinine 0.9
Glucose 108 H
Calcium 7.8 L
Vital Signs:
Vital Signs
Temp Pulse Resp BP Pulse Ox
98 F 58 23 124/75 94
11/30/23 05:03 11/30/23 06:15 11/30/23 06:15 11/30/23 06:00 11/30/23 06:15
I&O
11/29/23 11/30/23 12/01/23
06:59 06:59 06:59
Intake Total 1566.5 / 1625.5 2579.0 / 2579.0
Output Total 1130 / 1130 1400 / 1400
Balance 436.5 / 495.5 1179.0 / 1179.0
Review of Systems
-
Unable to obtain full review of systems at this time due to: Other (Minimally conversive. He only can give me his date of but not answering other questions;saying yes or no to questions)
EENT: Denies Sore Throat
Respiratory: Denies Trouble Breathing
Cardiac: Denies Chest Pain
Abdomen/GI: Denies Abdominal Pain
Neuro: Denies Dizzy or Headache
Physical Exam
-
General: No Apparent Distress
HEENT: Moist Mucous Membranes
Respiratory: Clear to Auscultation (Anteriorly) and Non Labored Respirations; Negative Accessory Resp Muscle Use
Cardiac: Regular Rhythm and S1/S2; Negative Tachycardic
GI: Soft and Nontender
Genito-urinary: Clear Urine and Wylie
Neuro: Awake, Alert and Oriented (Self only)
Psych: Calm and Confused
Data Reviewed
-
Labs: Labs Reviewed by me
[2023-11-30 08:40] LABS: Glucose - Point of Care 118 mg/dl (70-99)
--- NOTE | 2023-11-30 08:51 | W.PN.ID1 ---
Date of Service
Date of Service: November 30, 2023
Today's Communication
- start keflex 500 mg PO QID x 14 days (11/27-01/10)
- stop remdesivir/dexamethasone
- follow clinically
Assessment / Plan
Septic Shock - resolved
Leukocytosis - likely due to steroids
UTI due to Proteus
Proteus Bacteremia
RAFFI - resolving
Chronic Qiu due to BPH
- blood cultures x2 - proteus
- urine cultures Proteus - sensi back
- qiu has been replaced this admission
- renal US - no obstruction or evidence of pyelonephritis
- start keflex 500 mg PO QID x 14 days (11/27-01/10)
- follow clinically
COVID-19
Resolved Hypoxemia
- now saturating in the low 90s on room air, not known to be immunosuppressed
- by chart review had at least 3 doses of COVID vaccine in 2020 - unsure of current booster status; patient states none but may not be reliable
- isolation x10 days from symptom onset while inpatient, 11/27-12/07 - reassess if patient able to provide further history in the future
- stop remdesivir/dexamethasone
- follow clinically
Chief Complaint
-: UTI and Other (covid)
Subjective / Review of Systems
afebrile
bp stable off of pressors
significant leukocytosis with ongoing steroids
cr stable
sensi back on the proteus
spitting and hitting - possibly in part due to high dose steroids
no complaints
Vital Signs / Physical Exam
Vital Signs
Vital Signs
Temp Pulse Resp BP Pulse Ox
99 F 58 23 124/75 94
11/30/23 08:00 11/30/23 06:15 11/30/23 06:15 11/30/23 06:00 11/30/23 06:15
Physical Exam
Constitutional: No Acute Distress
Cardiovascular: Regular Rate and S1/S2; Negative Murmur or Rub
Pulmonary: Clear and Symmetric; Negative Wheezes or Rales
Gastrointestinal: Soft, Non Tender, Non Distended and Normal Bowel Sounds
Skin: Warm and Dry; Negative Rash or Jaundice
Neurological: Awake and Alert
Objective Data
Lab Data
Lab Results
11/30/23 04:35
11/30/23 04:35
PT 16.6 Sec (11.4-14.6) H 11/29/23 04:05
INR 1.36 11/29/23 04:05
Estimated Creat Clear 57 ml/min 11/30/23 04:35
Lactic Acid 1.2 mmol/L (0.7-2.0) 11/29/23 04:05
Total Bilirubin 1.0 mg/dl (0.2-1.3) 11/29/23 04:05
AST 26 U/L (17-59) 11/29/23 04:05
ALT 19 U/L (0-50) 11/29/23 04:05
Alkaline Phosphatase 81 U/L (38-126) 11/29/23 04:05
Most recent labs reviewed.
Micro Results:
11/28/23 04:22 Blood Culture - Preliminary
Blood/Venous Proteus species
Gram Stain - Final
11/28/23 04:22 Urine Culture - Preliminary
Urine Gram negative bacilli
11/28/23 12:52 MRSA Screen - Final
Nose No Methicillin Resistant Staphylococcus aureus isolated.
11/28/23 12:54 Urine Culture - Preliminary
Urine
11/28/23 04:22 Blood Culture - Preliminary
Blood/Venous Proteus species
Gram Stain - Final
11/28/23 06:53 Influenza Types A & B (VARGAS) - Final
Nasal Swab Negative for Influenza A & B, NAAT
Negative results must be combined with clinical observations
and patient history.
Nucleic Acid Amplification test (NAAT)performed on the
[email or web address] platform.
Care Review
Plan reviewed with: Nurse (O2 requirements)
[2023-11-30] MEDS: NOVOLOG FLEXPEN-MODERATE RESISTANCE SC (08:52)
[2023-11-30] MEDS: DECADRON 6 MG IV (09:09)
[2023-11-30] MEDS: VITAMIN B-12 1000 MCG TUBE (09:09)
[2023-11-30] MEDS: HEPARIN 5000 UNITS SC (09:09)
[2023-11-30] MEDS: BUSPAR 10 MG TUBE ×2 (09:09→21:12)
[2023-11-30] MEDS: LIPITOR 10 MG TUBE (09:09)
--- NOTE | 2023-11-30 09:37 | PTOTSP ---
attempted intervention, RN present in room. pt oriented to name only, does not follow direction. attempted feeding pt, spitting out food. pt also would bite down on spoon. one swallow of juice given, no distress. pt unwilling to complete AROM on
direction, attempted to place rolled towel in hand due to clenched fists. pt threw towel. no acute OT needs identified at this time, as pt does not follow direction or participate therapeutically. will sign off.
--- NOTE | 2023-11-30 10:38 | PTCARENOTE ---
pt awake and confused , uncooperative with nursing care, upper and lower extremities ridged , needs feeding , did tolerate breakfast with lots of encouragement , NSR on monitor, BP adequate off of Levophed since 1899 yesterday , on room air with 02
sats of 92-94% , pt seen by Dr Abbasi this am and was transitioned to med/Surg status
[2023-11-30 12:18] LABS: Glucose - Point of Care 177 mg/dl (70-99)
[2023-11-30] MEDS: NOVOLOG FLEXPEN-MODERATE RESISTANCE 1 UNITS SC ×2 (12:24→16:30)
[2023-11-30] MEDS: VITAMIN C 1000 MG PO (12:24)
[2023-11-30] MEDS: REFRESH EYE DROPS (PF) 2 DROPS RIGHT EYE ×2 (12:25→21:12)
[2023-11-30] MEDS: KEFLEX 500 MG PO ×3 (12:25→21:13)
[2023-11-30] MEDS: NSS IV (12:29)
[2023-11-30 16:40] LABS: Glucose - Point of Care 153 mg/dl (70-99)
[2023-11-30] MEDS: LOVENOX 40 MG SC (17:44)
--- NOTE | 2023-11-30 18:23 | PTCARENOTE ---
pt to transfer to room 2120, report given to Receiving RN , pt at bedside and aware of plan of care and condition
[2023-11-30] MEDS: ARICEPT 10 MG PO (21:13)
[2023-11-30 22:05] LABS: Glucose - Point of Care 168 mg/dl (70-99)
[2023-12-01 04:41] LABS: Hematocrit 30.2 % (39.0-52.0); Hemoglobin 10.1 g/dL (13.0-18.0); Mean Corp Hgb Conc. 33.4 g/dL (33.0-37.0); Mean Corpuscular Hgb 29.4 pg (27.0-31.0); Mean Platelet Volume 10.3 fL (7.4-10.4); Platelet Count 236 10^3/uL (130-400); Red Blood Cell Count 3.43 10^6/uL (4.70-6.10); Red Cell Dist. Width 13.4 % (11.5-14.5); White Blood Cell Count 22.6 10^3/uL (4.8-10.8)
[2023-12-01 04:57] VITALS: BMI 21.9
[2023-12-01 08:00] VITALS: BP 144/73
[2023-12-01 08:26] LABS: Glucose - Point of Care 96 mg/dl (70-99)
[2023-12-01] MEDS: NOVOLOG FLEXPEN-MODERATE RESISTANCE SC ×3 (08:46→17:11)
[2023-12-01] MEDS: LIPITOR 10 MG TUBE (09:55)
[2023-12-01] MEDS: REFRESH EYE DROPS (PF) 2 DROPS RIGHT EYE ×2 (09:55→21:05)
[2023-12-01] MEDS: VITAMIN B-12 1000 MCG TUBE (09:55)
[2023-12-01] MEDS: BUSPAR 10 MG TUBE ×2 (09:55→21:05)
[2023-12-01] MEDS: KEFLEX PO (09:56)
[2023-12-01] MEDS: KEFLEX 250 MG/5 ML PO (10:31)
[2023-12-01] MEDS: KEFLEX 250 MG/5 ML 500 MG PO ×4 (10:35→21:05)
--- NOTE | 2023-12-01 13:13 | PN.CDI ---
CDI
- -
CDI:
Physician Documentation Request
Admit Date: 11/28/23 07:35
Dear Doctor Elroy,
Patient admitted with sepsis and septic shock.
11/29 PN, 'Septic shock-secondary to source....UTI associated with chronic Wylie catheter....COVID-19 positivity-in view of sepsis picture we will treat as possible active infection.'
Please provide in your note the likely etiology/etiologies of documented sepsis/ septic shock:
Multifactorial due to CAUTI and COVID-19
CAUTI only
COVID -19 only
Other
Use of terms such as suspected, likely, concern for, or probable (associated with a specific diagnosis that is being evaluated, monitored, or treated as if it exists) are acceptable and can be coded in the inpatient setting, when documented at the
time of discharge.
Thank you,
Paty WALKER,RN,CCDS
CDI Specialist
Available via [employer] text
Please use your independent medical judgment in providing your response.
[2023-12-01 13:14] LABS: Glucose - Point of Care 97 mg/dl (70-99)
--- NOTE | 2023-12-01 13:15 | W.PN.HOSP.TC ---
Today's Communication/Plan
-
DC
Assessment / Plan
Assessment / Plan
Septic shock-secondary to source. He is COVID-19 positive unclear its role. Hemodynamically improved. Remains Off of vasopressors.
Proteus bacteremia UTI-repeat cultures are sterile. Urine cultures noted. Antibiotics switched to oral cephalosporins by ID.
Severe leukocytosis- sec to infection .Follow with tx. improving.
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 Catheter exchanged on this admission.
Severe lactic acidosis secondary to sepsis-resolved
COVID-19 positivity-in view of sepsis picture was treated as possible active infection. Patient on room air-off of steroids and remdesivir now. Continue with quarantine till 12/07.
Acute kidney injury-suspect secondary to sepsis +_ prerenal. No evidence of obstruction on renal ultrasound. Improved creatinine with better hemodynamics. Creatinine down to baseline.
Dementia-unknown baseline. Patient currently awake and alert. Not conversational today too. Question raised about acute metabolic encephalopathy on admission. Follow with patient's family regarding cognition changes.
Anemia-changes in the H&H noted suspect probably dilutional. No obvious external bleeding. Repeat H&H stable.
HFrEF-Clinically no evidence of CHF decompensation. Not on diuretics normally. Continue to follow weights and I&O's. Last known echo from August 2023 shows EF of 35 to 40% and no significant valvular abnormalities.
Other problems:
Alzheimer's dementia: cont Aricept/Zyprexa/Celexa/Buspar
Essential hypertension -hold blood pressure medications for now.
BPH: cont Flomax once BP improves
Ambulatory dysfunction
FULL
DVT proph: Continue with Lovenox
Medically stable for discharge facility.
Left a message to on her voicemail.
More than 30 minutes spent in discharge including
Final examination of the patient
Summarizing hospital stay
Instructions for continuing care to all relevant caregivers
Preparation of discharge records, prescriptions, and referral forms
Total time spent (in minutes): 35
Anticipated Discharge: Today
Subjective/Interval History
-
Date of Service: December 01, 2023
Patient awake and alert. Again not conversational today. States yes and no.
Objective Data
-
Labs:
Laboratory Results
12/01/23
04:30
WBC 22.6 H
Hgb 10.1 L
Hct 30.2 L
Plt Count 236
Vital Signs:
Vital Signs
Temp Pulse Resp BP Pulse Ox
98.8 F 67 16 144/73 98
12/01/23 08:00 12/01/23 08:00 12/01/23 08:00 12/01/23 08:00 12/01/23 08:00
I&O
11/30/23 12/01/23 12/02/23
06:59 06:59 06:59
Intake Total 2579.0 / 2659.0 1260 / 1260
Output Total 1400 / 1400 1700 / 1700
Balance 1179.0 / 1259.0 -440 / -440
Review of Systems
-
Unable to obtain full review of systems at this time due to: Dementia
Respiratory: Denies Trouble Breathing
Cardiac: Denies Chest Pain
Physical Exam
-
General: No Apparent Distress
HEENT: Moist Mucous Membranes
Respiratory: Clear to Auscultation
Cardiac: Regular Rhythm and S1/S2
GI: Soft and Nontender
Neuro: Awake and Alert
Psych: Calm and Confused; Negative Agitated
Data Reviewed
-
Labs: Labs Reviewed by me
--- NOTE | 2023-12-01 13:24 | W.DS.TRANS ---
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
-
Discharge Instructions:
Discharge Diagnosis/Procedures Septic shock
Proteus bacteremic UTI
Chronic Wylie catheter
COVID-19 infection
RAFFI which resolved
Dementia
Diet Other diet,2 Gram Sodium
Additional Diets IDDSI 4 pur�ed diet with thin liquids
Activity As tolerated
Driving Restrictions No driving
Bathing Restrictions None
Specialty Instructions Weigh Daily
Instructions:
Stand-Alone Forms:
Changes to Home Medications: Yes
Discharge Medications:
DC Medications w/original date entered in [facility]
ascorbic acid (vitamin C) 500 mg tablet (Vitamin C) 1,000 mg PO Q48H Supplement 07/22/21
aspirin 81 mg chewable tablet 81 mg PO MOFR@08 Blood Pressure 07/22/21
citalopram 40 mg tablet 40 mg PO DAILY Depression 07/22/21
cyanocobalamin (vitamin B-12) 1,000 mcg tablet 1,000 mcg PO DAILY Supplement 07/22/21
olanzapine 2.5 mg tablet 2.5 mg PO HS Mental Health/Anxiety 07/22/21
tamsulosin 0.4 mg capsule 0.4 mg PO DAILY Urinary Issue 07/22/21
buspirone 10 mg tablet 10 mg PO BID Mental Health/Anxiety 09/28/23
calcium carbonate 600 mg calcium (1,500 mg) tablet (Calcium) 600 mg PO BID Supplement 09/28/23
donepezil 10 mg tablet 10 mg PO HS Neurological Condition 09/28/23
lovastatin 20 mg tablet 20 mg PO HS High Cholesterol 09/28/23
acetaminophen 325 mg tablet (Tylenol) 650 mg PO Q4HPRN PRN pain, T>100F 11/28/23
bisacodyl 10 mg rectal suppository (Dulcolax (bisacodyl)) 10 mg DC DAILYPRN PRN CONSTIPATION 11/28/23
calcium carbonate 500 mg calcium (1,250 mg) chewable tablet 500 mg PO Q8HPRN PRN HEARTBURN 11/28/23
magnesium hydroxide 400 mg/5 mL oral suspension 30 ml PO DAILYPRN PRN NO BM IN 3 DAYS 11/28/23
nitroglycerin 0.4 mg sublingual tablet 0.4 mg sublingual Q5MPRN PRN chest pain 11/28/23
polyvinyl alcohol-povidone (PF) 1.4 %-0.6 % eye drops in a dropperette (Refresh Classic (PF)) 2 drp RIGHT EYE BID Eye Condition 11/28/23
sodium phosphates 19 gram-7 gram/118 mL enema (Fleet Enema) 118 ml DC DAILYPRN PRN dulcolax ineffective 11/28/23
cephalexin 250 mg/5 mL oral suspension 500 mg (10 mL) PO QID #100 mL 12/01/23
lorazepam 0.5 mg tablet 0.5 mg PO TID PRN Mental Health/Anxiety #0 tabs 12/01/23
Home Medication Changes
Medication-cephalexin 12/11/23
Pending Results: No
--- NOTE | 2023-12-01 14:57 | W.PN.ID1 ---
Date of Service
Date of Service: December 01, 2023
Today's Communication
keflex
Assessment / Plan
Septic Shock - resolved
Leukocytosis - likely due to steroids
UTI due to Proteus
Proteus Bacteremia
RAFFI - resolving
Chronic Qiu due to BPH
- blood cultures x2 - proteus
- urine cultures Proteus - sensi back
- qiu has been replaced this admission
- keflex 500 mg PO QID x 14 days (11/27-01/10)
- follow up with pcp
COVID-19
Resolved Hypoxemia
- now saturating in the low 90s on room air, not known to be immunosuppressed
- by chart review had at least 3 doses of COVID vaccine in 2020 - unsure of current booster status; patient states none but may not be reliable
- isolation x10 days from symptom onset while inpatient, 11/27-12/07 - reassess if patient able to provide further history in the future
- stop remdesivir/dexamethasone
- follow clinically
Chief Complaint
-: UTI and Other (covid)
Subjective / Review of Systems
afebrile
bp stable
saturating well off of O2
declining leukocytosis off of steroids
Vital Signs / Physical Exam
Vital Signs
Vital Signs
Temp Pulse Resp BP Pulse Ox
98.8 F 67 16 144/73 98
12/01/23 08:00 12/01/23 08:00 12/01/23 08:00 12/01/23 08:00 12/01/23 08:00
Physical Exam
Constitutional: No Acute Distress and Chronically Ill
Cardiovascular: Regular Rate
Pulmonary: Symmetric and Non Labored
Skin: Negative Rash or Jaundice
Neurological: Negative Awake
Objective Data
Lab Data
Lab Results
12/01/23 04:30
11/30/23 04:35
PT 16.6 Sec (11.4-14.6) H 11/29/23 04:05
INR 1.36 11/29/23 04:05
Estimated Creat Clear 57 ml/min 11/30/23 04:35
Lactic Acid 1.2 mmol/L (0.7-2.0) 11/29/23 04:05
Total Bilirubin 1.0 mg/dl (0.2-1.3) 11/29/23 04:05
AST 26 U/L (17-59) 11/29/23 04:05
ALT 19 U/L (0-50) 11/29/23 04:05
Alkaline Phosphatase 81 U/L (38-126) 11/29/23 04:05
Most recent labs reviewed.
Micro Results:
11/28/23 12:54 Urine Culture - Final
Urine Proteus mirabilis
Pseudomonas aeruginosa
11/28/23 04:22 Blood Culture - Final
Blood/Venous Proteus mirabilis
Gram Stain - Final
11/28/23 04:22 Blood Culture - Final
Blood/Venous Proteus mirabilis
Gram Stain - Final
11/28/23 04:22 Urine Culture - Final
Urine Proteus mirabilis
11/28/23 12:52 MRSA Screen - Final
Nose No Methicillin Resistant Staphylococcus aureus isolated.
11/28/23 06:53 Influenza Types A & B (VARGAS) - Final
Nasal Swab Negative for Influenza A & B, NAAT
Negative results must be combined with clinical observations
and patient history.
Nucleic Acid Amplification test (NAAT)performed on the
[employer] platform.
[2023-12-01 16:00] VITALS: BP 152/79
[2023-12-01 16:47] LABS: Glucose - Point of Care 100 mg/dl (70-99)
[2023-12-01] MEDS: LOVENOX 40 MG SC (19:01)
[2023-12-01] MEDS: DESENEX/MITRAZOL/ZEASORB 1 APPLIC TOPICAL (21:05)
[2023-12-01 21:14] VITALS: BP 156/79
[2023-12-01 22:11] LABS: Glucose - Point of Care 122 mg/dl (70-99)
[2023-12-01] MEDS: ARICEPT 10 MG PO (22:25)
[2023-12-01 23:02] VITALS: BP 125/66
[2023-12-02 05:24] VITALS: BMI 20.5
[2023-12-02] MEDS: LIPITOR 10 MG TUBE (09:00)
[2023-12-02] MEDS: KEFLEX 250 MG/5 ML 500 MG PO ×4 (09:05→21:24)
[2023-12-02] MEDS: BUSPAR 10 MG TUBE ×2 (09:05→21:25)
[2023-12-02] MEDS: LOW STRENGTH ASPIRIN 81 MG PO (09:07)
[2023-12-02 09:21] LABS: Glucose - Point of Care 71 mg/dl (70-99)
[2023-12-02] MEDS: NOVOLOG FLEXPEN-MODERATE RESISTANCE SC ×3 (10:02→17:07)
[2023-12-02] MEDS: VITAMIN B-12 1000 MCG TUBE (10:04)
[2023-12-02] MEDS: REFRESH EYE DROPS (PF) 2 DROPS RIGHT EYE ×2 (10:05→21:24)
[2023-12-02] MEDS: DESENEX/MITRAZOL/ZEASORB 1 APPLIC TOPICAL ×2 (10:23→21:29)
[2023-12-02] MEDS: NSS (PRESERVATIVE FREE) 0.25 ML IV (10:59)
[2023-12-02] MEDS: ATIVAN 0.5 MG IV (10:59)
--- NOTE | 2023-12-02 11:51 | HOSPNOTE ---
Spoke at length with patient about hospice and the philosophy. The spouse is unsure what to do, I discussed returning to [facility] without hospice however the patient would need to be able to participate in therapy. If the patient returns with
hospice she is responsible for room and board. The spouse is unsure what she would like to do. The spouse has my contact information with any further questions. I did explain that the patient could go home with hospice services and the spouse would
be the primary caregiver.
--- NOTE | 2023-12-02 12:23 | W.PN.ID1 ---
Date of Service
Date of Service: December 02, 2023
Today's Communication
- keflex 500 mg PO QID x 14 days (11/27-01/10)
- follow up with pcp
Assessment / Plan
UTI due to Proteus
Proteus Bacteremia
RAFFI - resolving
Chronic Wylie due to BPH
- keflex 500 mg PO QID x 14 days (11/27-01/10)
- follow up with pcp
COVID-19
Resolved Hypoxemia
- isolation x10 days from symptom onset while inpatient, 11/27-12/07 - reassess if patient able to provide further history in the future
- follow up with pcp
Chief Complaint
-: UTI and Other (covid)
Subjective / Review of Systems
afebrile
bp stable
on room air - saturating well
Vital Signs / Physical Exam
Vital Signs
Vital Signs
Temp Pulse Resp BP Pulse Ox
98.6 F 72 18 125/66 100
12/01/23 23:02 12/01/23 23:02 12/01/23 23:02 12/01/23 23:02 12/01/23 23:02
Physical Exam
Constitutional: No Acute Distress and Chronically Ill
Cardiovascular: Regular Rate
Pulmonary: Symmetric and Non Labored
Gastrointestinal: Non Distended
Skin: Dry; Negative Rash or Jaundice
Neurological: Awake
Objective Data
Lab Data
Lab Results
12/01/23 04:30
11/30/23 04:35
PT 16.6 Sec (11.4-14.6) H 11/29/23 04:05
INR 1.36 11/29/23 04:05
Estimated Creat Clear 57 ml/min 11/30/23 04:35
Lactic Acid 1.2 mmol/L (0.7-2.0) 11/29/23 04:05
Total Bilirubin 1.0 mg/dl (0.2-1.3) 11/29/23 04:05
AST 26 U/L (17-59) 11/29/23 04:05
ALT 19 U/L (0-50) 11/29/23 04:05
Alkaline Phosphatase 81 U/L (38-126) 11/29/23 04:05
Most recent labs reviewed.
Micro Results:
11/28/23 12:54 Urine Culture - Final
Urine Proteus mirabilis
Pseudomonas aeruginosa
11/28/23 04:22 Blood Culture - Final
Blood/Venous Proteus mirabilis
Gram Stain - Final
11/28/23 04:22 Blood Culture - Final
Blood/Venous Proteus mirabilis
Gram Stain - Final
11/28/23 04:22 Urine Culture - Final
Urine Proteus mirabilis
11/28/23 12:52 MRSA Screen - Final
Nose No Methicillin Resistant Staphylococcus aureus isolated.
11/28/23 06:53 Influenza Types A & B (VARGAS) - Final
Nasal Swab Negative for Influenza A & B, NAAT
Negative results must be combined with clinical observations
and patient history.
Nucleic Acid Amplification test (NAAT)performed on the
[employer] platform.
[2023-12-02 12:33] LABS: Glucose - Point of Care 121 mg/dl (70-99)
[2023-12-02] MEDS: VITAMIN C PO (13:00)
--- NOTE | 2023-12-02 14:33 | W.PN.HOSP.TC ---
Today's Communication/Plan
-
DC after hospice eval
Assessment / Plan
Assessment / Plan
Septic shock-secondary to source. He is COVID-19 positive unclear its role. HD stable. Remains Off of vasopressors.
Proteus bacteremia UTI-repeat cultures are sterile. Urine cultures noted. Antibiotics switched to oral cephalosporins by ID.
Severe leukocytosis- sec to infection .Follow with tx. improved.
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 Catheter exchanged on this admission.
Severe lactic acidosis secondary to sepsis-resolved
COVID-19 positivity-in view of sepsis picture was treated as possible active infection. Patient on room air-off of steroids and remdesivir now. Continue with quarantine till 12/07.
Acute kidney injury-suspect secondary to sepsis +_ prerenal. No evidence of obstruction on renal ultrasound. Improved creatinine with better hemodynamics. Creatinine down to baseline.
Dementia with behavioral disturbaces -unknown baseline. cw non pharmacological and pharmacological therapies .
Anemia-changes in the H&H noted suspect probably dilutional. No obvious external bleeding. Repeat H&H stable.
HFrEF-Clinically no evidence of CHF decompensation. Not on diuretics normally. Continue to follow weights and I&O's. Last known echo from August 2023 shows EF of 35 to 40% and no significant valvular abnormalities.
Other problems:
Alzheimer's dementia: cont Aricept/Zyprexa/Celexa/Buspar
Essential hypertension -hold blood pressure medications for now.
BPH: cont Flomax once BP improves
Ambulatory dysfunction
FULL
DVT proph: Continue with Lovenox
Medically stable for discharge facility.
requesting hospcie eval - hospice consult placed
Left message to on her voicemail
Anticipated Discharge: Today
Subjective/Interval History
-
Date of Service: December 02, 2023
Patient this morning was agitated requiring Ativan and the limb strains.
Currently calmer but in restraints.
Not conversational due to dementia.
Objective Data
-
Vital Signs:
Vital Signs
Temp Pulse Resp BP Pulse Ox
98.6 F 72 18 125/66 100
12/01/23 23:02 12/01/23 23:02 12/01/23 23:02 12/01/23 23:02 12/01/23 23:02
I&O
12/01/23 12/02/23 12/03/23
06:59 06:59 06:59
Intake Total 1260 / 1260 240 / 240
Output Total 1700 / 1700 2300 / 2300
Balance -440 / -440 -2059 / -2059
Review of Systems
-
Unable to obtain full review of systems at this time due to: Dementia
Physical Exam
-
Respiratory: Clear to Auscultation (anteriorly)
Cardiac: Regular Rhythm and S1/S2
GI: Soft
Neuro: Awake and Alert; Negative Oriented
Psych: Confused; Negative Agitated (not at this moment)
--- NOTE | 2023-12-02 14:45 | CM ---
Addendum entered by Lynn Bellamy 12/02/23 17:24:
[phone]. She relayed that patient will not be readmitted until the amount due is paid in full. Someone from [facility] will call .
Original Note:
Hospice consult with patient and completed. is uncertain what she wants to do. Hospice options were discussed. and CM discussed discharge planning at length. Patient was at [facility]. There is an outstanding balance.
Referral sent to [facility] and CM called to check if they would accept back. Admissions noted that there is a balance due and they will check and call CM. Patient has not participated in therapy since admission. Barrier to sending rehab referrals.
He currently is in restraints. Discussed LTC and Medicaid. has hired an elder contracts attorney who reportedly told to not apply for Medicaid this time which limits LTC capability and referrals.
This CM stressed the importance of determining a viable discharge plan of care as patient has a discharge order. Encouraged to discuss with contracts attorney. Expressed understanding.
[2023-12-02 15:00] VITALS: BP 110/70
[2023-12-02 16:57] LABS: Glucose - Point of Care 98 mg/dl (70-99)
--- NOTE | 2023-12-02 18:38 | PTCARENOTE ---
Dayshift RN said patient continues to attempt to remove tube (Wylie) and needs restraints. He likes snacks and calm attitude helps. He is agitated at times but needs continued use of restraints. He is on a Q2 turn schedule and skin is intact.
[2023-12-02] MEDS: LOVENOX 40 MG SC (18:53)
[2023-12-02] MEDS: ARICEPT 10 MG PO (21:25)
[2023-12-02 22:17] LABS: Glucose - Point of Care 104 mg/dl (70-99)
[2023-12-02 23:00] VITALS: BP 119/60
[2023-12-03 00:37] VITALS: BP 119/60
[2023-12-03 05:47] VITALS: BMI 20.6
[2023-12-03 07:00] VITALS: BP 111/67
[2023-12-03 08:21] LABS: Glucose - Point of Care 79 mg/dl (70-99)
[2023-12-03] MEDS: NOVOLOG FLEXPEN-MODERATE RESISTANCE SC ×3 (08:52→17:51)
[2023-12-03] MEDS: REFRESH EYE DROPS (PF) 2 DROPS RIGHT EYE ×2 (08:53→19:36)
[2023-12-03] MEDS: BUSPAR 10 MG TUBE ×2 (08:53→19:36)
[2023-12-03] MEDS: LIPITOR 10 MG TUBE (08:53)
[2023-12-03] MEDS: VITAMIN B-12 1000 MCG TUBE (08:53)
[2023-12-03] MEDS: KEFLEX 250 MG/5 ML 500 MG PO ×4 (08:54→21:38)
[2023-12-03] MEDS: DESENEX/MITRAZOL/ZEASORB 1 APPLIC TOPICAL ×2 (09:11→20:07)
[2023-12-03 12:03] LABS: Glucose - Point of Care 80 mg/dl (70-99)
--- NOTE | 2023-12-03 13:37 | W.PN.HOSP.TC ---
Addendum entered and electronically signed by Roger Abbasi MD 12/04/23 16:12:
sepsis secondary to CAUTI only
Original Note:
Today's Communication/Plan
-
Await hospice eval out come
DC when dispo is clear
Assessment / Plan
Assessment / Plan
Septic shock-secondary to source. He is COVID-19 positive unclear its role. HD stable. Remains Off of vasopressors.
Proteus bacteremia UTI-repeat cultures are sterile. Urine cultures noted. Antibiotics switched to oral cephalosporins by ID.
Severe leukocytosis- sec to infection .Follow with tx. improved.
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 Catheter exchanged on this admission.
Severe lactic acidosis secondary to sepsis-resolved
COVID-19 positivity-in view of sepsis picture was treated as possible active infection. Patient on room air-off of steroids and remdesivir now. Continue with quarantine till 12/07.
Acute kidney injury-suspect secondary to sepsis +_ prerenal. No evidence of obstruction on renal ultrasound. Improved creatinine with better hemodynamics. Creatinine down to baseline.
Dementia with behavioral disturbaces -unknown baseline. cw non pharmacological and pharmacological therapies .
Anemia-changes in the H&H noted suspect probably dilutional. No obvious external bleeding. Repeat H&H stable.
HFrEF-Clinically no evidence of CHF decompensation. Not on diuretics normally. Continue to follow weights and I&O's. Last known echo from August 2023 shows EF of 35 to 40% and no significant valvular abnormalities.
Other problems:
Alzheimer's dementia: cont Aricept/Zyprexa/Celexa/Buspar
Essential hypertension -hold blood pressure medications for now.
BPH: cont Flomax once BP improves
Ambulatory dysfunction
FULL
DVT proph: Continue with Lovenox
Medically stable for discharge facility.
requesting hospice eval - hospice consult placed
Left message to on her voicemail 12/01 -wait to hear from her.
Anticipated Discharge: 24 - 48 hours
Subjective/Interval History
-
Date of Service: December 03, 2023
Ate well when fed this morning per aide.
Confused but directable.
Still requiring the restraints as keeps pulling on his Wylie catheter which is needed for chronic retention.
Objective Data
-
Vital Signs:
Vital Signs
Temp Pulse Resp BP Pulse Ox
97.9 F 66 16 111/67 96
12/03/23 07:00 12/03/23 07:00 12/03/23 07:00 12/03/23 07:00 12/03/23 07:00
I&O
12/02/23 12/03/23 12/04/23
06:59 06:59 07:59
Intake Total 240 / 240 480 / 480
Output Total 2300 / 2300 2550 / 2550
Balance -2059 / -2059 -2069 / -2069
Review of Systems
-
Unable to obtain full review of systems at this time due to: Dementia
Physical Exam
-
General: No Apparent Distress and Comfortable
Respiratory: Clear to Auscultation and Non Labored Respirations; Negative Accessory Resp Muscle Use
Cardiac: Regular Rhythm and S1/S2
Neuro: Awake and Alert; Negative Oriented
Psych: Calm and Confused; Negative Agitated (But in restraints as he is pulling on his catheter)
[2023-12-03 15:00] VITALS: BP 121/60
--- NOTE | 2023-12-03 15:33 | CM ---
Addendum entered by Manuelito Barahona 12/03/23 15:47:
Pt's spouse returned phone call and decision is made to meet tomorrow between 10:00 a.m and 11:00 a.m to develop a detailed discharge plan.
Original Note:
CM following re: discharge planning.
Reviewed pt's chart. Discharge needs and barriers noted.
CM left a message to pt['s spouse with a request to discuss discharge plan and to help with discharge planning. Pt's spouse expressed her desire earlier in the week that she feels that hospice care will be most appropriate level of care to the pt
and pt's spouse met with elderly business attorney on Tuesday to discuss financial aspect of care.
D/C plan: uncertain at this time.
CM will follow with discharge plan updates.
[2023-12-03 17:40] LABS: Glucose - Point of Care 81 mg/dl (70-99)
[2023-12-03] MEDS: LOVENOX 40 MG SC (18:04)
[2023-12-03 21:21] LABS: Glucose - Point of Care 140 mg/dl (70-99)
[2023-12-03] MEDS: ARICEPT 10 MG PO (21:42)
[2023-12-03 23:31] VITALS: BP 101/64
--- NOTE | 2023-12-04 03:20 | PTCARENOTE ---
0200 Restraints documentation could not be done due to the daylight savings time change. It had to be done at 0300 since we gained 1 hour.
[2023-12-04 06:00] VITALS: BMI 19.6
[2023-12-04 07:12] LABS: Glucose - Point of Care 84 mg/dl (70-99)
[2023-12-04 07:48] VITALS: BP 105/55
[2023-12-04] MEDS: NOVOLOG FLEXPEN-MODERATE RESISTANCE SC ×3 (08:14→17:42)
[2023-12-04] MEDS: KEFLEX 250 MG/5 ML 500 MG PO ×4 (08:15→21:00)
[2023-12-04] MEDS: LIPITOR 10 MG TUBE (08:16)
[2023-12-04] MEDS: VITAMIN B-12 1000 MCG TUBE (08:16)
[2023-12-04] MEDS: BUSPAR 10 MG TUBE ×2 (08:16→20:46)
[2023-12-04] MEDS: REFRESH EYE DROPS (PF) 2 DROPS RIGHT EYE ×2 (08:16→20:46)
[2023-12-04] MEDS: DESENEX/MITRAZOL/ZEASORB 1 APPLIC TOPICAL ×2 (08:18→20:47)
[2023-12-04 12:10] LABS: Glucose - Point of Care 110 mg/dl (70-99)
[2023-12-04] MEDS: VITAMIN C 1000 MG PO (12:16)
--- NOTE | 2023-12-04 13:01 | W.PN.HOSP.TC ---
Today's Communication/Plan
-
DC planning
Assessment / Plan
Assessment / Plan
Septic shock-secondary to source. He is COVID-19 positive unclear its role. HD stable. Remains Off of vasopressors.
Proteus bacteremia UTI-repeat cultures are sterile. Urine cultures noted. Antibiotics switched to oral cephalosporins by ID.
Severe leukocytosis- sec to infection .Follow with tx. improved.
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 Catheter exchanged on this admission.
Severe lactic acidosis secondary to sepsis-resolved
COVID-19 positivity-in view of sepsis picture was treated as possible active infection. Patient on room air-off of steroids and remdesivir now. Continue with quarantine till 12/07.
Acute kidney injury-suspect secondary to sepsis +_ prerenal. No evidence of obstruction on renal ultrasound. Improved creatinine with better hemodynamics. Creatinine down to baseline.
Dementia with behavioral disturbaces -unknown baseline. cw non pharmacological and pharmacological therapies .
Anemia-changes in the H&H noted suspect probably dilutional. No obvious external bleeding. Repeat H&H stable.
HFrEF-Clinically no evidence of CHF decompensation. Not on diuretics normally. Continue to follow weights and I&O's. Last known echo from August 2023 shows EF of 35 to 40% and no significant valvular abnormalities.
Other problems:
Alzheimer's dementia: cont Aricept/Zyprexa/Celexa/Buspar
Essential hypertension -hold blood pressure medications for now.
BPH: cont Flomax once BP improves
Ambulatory dysfunction
FULL
DVT proph: Continue with Lovenox
Medically stable for discharge facility.
requesting hospice eval - hospice consult placed
is debating between discharge to memory unit vs hospice at home.
Continue to follow with /hospice evals regarding final dispo.
told that he is stable for discharge.
Anticipated Discharge: Within 24 hours
Subjective/Interval History
-
Date of Service: December 04, 2023
Getting fed by during my visit
He is confused but not agitated
In restraints mostly due to concerns of pulling on his catheter
Objective Data
-
Vital Signs:
Vital Signs
Temp Pulse Resp BP Pulse Ox
97.2 F 67 16 105/55 97
12/04/23 07:48 12/04/23 07:48 12/04/23 07:48 12/04/23 07:48 12/04/23 07:48
I&O
12/03/23 12/04/23 12/05/23
05:59 06:59 06:59
Intake Total
Output Total
Balance
Review of Systems
-
Unable to obtain full review of systems at this time due to: Dementia
Physical Exam
-
General: No Apparent Distress and Comfortable
Respiratory: Clear to Auscultation and Non Labored Respirations; Negative Accessory Resp Muscle Use
Cardiac: Regular Rhythm and S1/S2
GI: Soft
Neuro: Awake, Alert and Oriented (self)
Psych: Calm and Confused; Negative Agitated
--- NOTE | 2023-12-04 13:04 | CM ---
CM following re: discharge planning.
Reviewed pt's chart, met with pt and had a long meeting with pt's spouse to discuss a detailed discharge plan.
Discharge order is noted. pt's spouse is aware, expressed her disagreement with discharge. IM reviewed, placed in chart, pt's spouse has a copy. Pt's spouse has decided top appeal, she called [facility] and made an appeal. Pt's spouse brought to me
appeal .
Pt's spouse stated she went to meet with Elderly estate planning attorney and per spouse she did not get help/support she was expected.
Pt's spouse stated that her still in restraints and no SNF will accept him being in restraints.
As a result of the long meeting with pt's spouse following discharge plan options has been developed.
1. return back to [facility] with private pay and pt has a bill of almost $22,000.00 dollars to pay prior to admission.
2. [facility] memory care unit with hospice care. CM spoke to [facility] memory care liaison Casey [phone] and requested medical record faxed to [phone]. Pt's spouse has Casey phone number and pt's spouse will go to [facility] tomorrow to discuss pt's possible admission to [facility]. per casey pt will need to be on hospice care to help with clinical/medical management.
3. [facility] up worker services.
Pt's spouse went back and fourth with discharge plan options, stated 'my mind seems in clouds'.
D/C plan: uncertain at this time. Three options of discharge plan has been discussed with pt's spouse. Pt's spouse appealed discharge.
CM will follow to assist pt with a safe discharge plan.
[2023-12-04 15:33] VITALS: BP 94/53
[2023-12-04 17:03] LABS: Glucose - Point of Care 110 mg/dl (70-99)
[2023-12-04] MEDS: LOVENOX 40 MG SC (17:42)
[2023-12-04] MEDS: ARICEPT 10 MG PO (21:00)
[2023-12-04 21:35] LABS: Glucose - Point of Care 132 mg/dl (70-99)
[2023-12-04 23:08] VITALS: BP 126/69
[2023-12-05 07:05] VITALS: BP 122/67
[2023-12-05 07:27] LABS: Glucose - Point of Care 79 mg/dl (70-99)
[2023-12-05] MEDS: NOVOLOG FLEXPEN-MODERATE RESISTANCE SC ×3 (08:43→16:56)
--- NOTE | 2023-12-05 08:58 | W.PN.HOSP.TC ---
Today's Communication/Plan
-
Consult psychiatry for medication adjustments
Assessment / Plan
Assessment / Plan
Septic shock-secondary to source. He is COVID-19 positive unclear its role. HD stable. Remains Off of vasopressors.
Proteus bacteremia UTI-repeat cultures are sterile. Urine cultures noted. Urine cultures growing Proteus and Pseudomonas. Status post IV Zosyn, currently on Keflex
Severe leukocytosis- sec to infection .Follow with tx. improved.
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 Catheter exchanged on this admission.
Severe lactic acidosis secondary to sepsis-resolved
COVID-19 positivity-in view of sepsis picture was treated as possible active infection. Patient on room air-off of steroids and remdesivir now. Continue with quarantine till 12/07.
Acute kidney injury-suspect secondary to sepsis +_ prerenal. No evidence of obstruction on renal ultrasound. Resolved, creatinine now normal.
Alzheimer's dementia with behavioral disturbaces -unknown baseline. Patient is requiring restraints, consult psychiatry for medication adjustments. He is usually on Aricept/Zyprexa/Celexa/Buspar, but currently only getting aricept and buspar.
Anemia-changes in the H&H noted suspect probably dilutional. No obvious external bleeding. Continue to monitor hemoglobin
HFrEF-Clinically no evidence of CHF decompensation. Not on diuretics normally. Continue to follow weights and I&O's. Last known echo from August 2023 shows EF of 35 to 40% and no significant valvular abnormalities.
Other problems:
Essential hypertension -hold blood pressure medications for now.
BPH: resume Flomax
Ambulatory dysfunction
DVT proph: Continue with Lovenox
Full Code
Medically stable for discharge facility.
requesting hospice eval - hospice consult placed
is debating between discharge to memory unit vs hospice at home.
Continue to follow with /hospice evals regarding final dispo.
told that he is stable for discharge.
Physical Exam
General: No acute distress
HEENT: Normocephalic, Atraumatic, EOMI, MMM
Respiratory: Clear to Auscultation bilaterally
Cardiac: Normal S1/S2, Regular Rate and Rhythm
GI: Soft, Nontender, Nondistended, Normal Bowel Sounds
Extremities: No Clubbing, Cyanosis, or Edema
Neuro: Nonfocal/Grossly Intact
Psych: Calm, Cooperative
Derm: Confused
Anticipated Discharge: Within 24 hours
Subjective/Interval History
-
Date of Service: December 05, 2023
Patient is intermittently agitated. He does eat his meals when fed. No coughing, no shortness of breath.
Objective Data
-
Vital Signs:
Vital Signs
Temp Pulse Resp BP Pulse Ox
97.7 F 72 16 122/67 100
12/05/23 07:05 12/05/23 07:05 12/05/23 07:05 12/05/23 07:05 12/05/23 07:05
I&O
12/04/23 12/05/23 12/06/23
06:59 06:59 06:59
Intake Total 600 / 600
Output Total 925 / 925
Balance -325 / -325
[2023-12-05] MEDS: REFRESH EYE DROPS (PF) 2 DROPS RIGHT EYE ×2 (09:46→22:04)
[2023-12-05] MEDS: KEFLEX 250 MG/5 ML 500 MG PO ×3 (09:46→22:05)
[2023-12-05] MEDS: BUSPAR 10 MG TUBE (09:47)
[2023-12-05] MEDS: LIPITOR 10 MG TUBE (09:48)
[2023-12-05] MEDS: VITAMIN B-12 1000 MCG TUBE (09:48)
[2023-12-05] MEDS: DESENEX/MITRAZOL/ZEASORB 1 APPLIC TOPICAL ×2 (09:49→22:04)
[2023-12-05] MEDS: LOW STRENGTH ASPIRIN 81 MG PO (09:51)
--- NOTE | 2023-12-05 10:29 | W.PN.ID1 ---
Date of Service
Date of Service: December 05, 2023
Today's Communication
c/w keflex
Assessment / Plan
UTI due to Proteus
Proteus Bacteremia
RAFFI - resolving
Chronic Wylie due to BPH
- keflex 500 mg PO QID x 14 days (11/27-01/10)
- follow up with pcp
COVID-19
Resolved Hypoxemia
- isolation x10 days from symptom onset while inpatient, 11/27-12/07
- follow up with pcp
Chief Complaint
-: UTI and Other (covid)
Subjective / Review of Systems
afebrile
bp stable
saturating well on room air
no new labs
note requesting hospice eval
Vital Signs / Physical Exam
Vital Signs
Vital Signs
Temp Pulse Resp BP Pulse Ox
97.7 F 72 16 122/67 100
12/05/23 07:05 12/05/23 07:05 12/05/23 07:05 12/05/23 07:05 12/05/23 07:05
Physical Exam
Constitutional: No Acute Distress and Chronically Ill
Cardiovascular: Regular Rate and S1/S2; Negative Murmur or Rub
Pulmonary: Symmetric and Non Labored
Gastrointestinal: Soft and Non Distended
Genito-Urinary: Negative Suprapubic Tenderness
Skin: Warm and Dry; Negative Rash or Jaundice
Neurological: Awake
Psychological: Negative Agitated
Objective Data
Lab Data
Lab Results
12/01/23 04:30
11/30/23 04:35
PT 16.6 Sec (11.4-14.6) H 11/29/23 04:05
INR 1.36 11/29/23 04:05
Estimated Creat Clear 57 ml/min 11/30/23 04:35
Lactic Acid 1.2 mmol/L (0.7-2.0) 11/29/23 04:05
Total Bilirubin 1.0 mg/dl (0.2-1.3) 11/29/23 04:05
AST 26 U/L (17-59) 11/29/23 04:05
ALT 19 U/L (0-50) 11/29/23 04:05
Alkaline Phosphatase 81 U/L (38-126) 11/29/23 04:05
Most recent labs reviewed.
Micro Results:
11/28/23 12:54 Urine Culture - Final
Urine Proteus mirabilis
Pseudomonas aeruginosa
11/28/23 04:22 Blood Culture - Final
Blood/Venous Proteus mirabilis
Gram Stain - Final
11/28/23 04:22 Blood Culture - Final
Blood/Venous Proteus mirabilis
Gram Stain - Final
11/28/23 04:22 Urine Culture - Final
Urine Proteus mirabilis
11/28/23 12:52 MRSA Screen - Final
Nose No Methicillin Resistant Staphylococcus aureus isolated.
11/28/23 06:53 Influenza Types A & B (VARGAS) - Final
Nasal Swab Negative for Influenza A & B, NAAT
Negative results must be combined with clinical observations
and patient history.
Nucleic Acid Amplification test (NAAT)performed on the
[employer] platform.
[2023-12-05 12:52] LABS: Glucose - Point of Care 89 mg/dl (70-99)
[2023-12-05] MEDS: KEFLEX 250 MG/5 ML PO (14:00)
--- NOTE | 2023-12-05 14:33 | CS.PSYCHR ---
Consult Summary - Psychiatry
-
Pt is 83 yo male with history of Alzheimer's dementia, admitted with elevated temp, encephalopathy, septic shock. Pt has stabilized; is considering referral to memory care unit vs home with Hospice. Pt has been mostly calm, oriented to self,
has had some moments of agitation, will try to grab/pull at his Wylie catheter. He has been continued on Buspar and Aricept. Zyprexa and Celexa have been held. QTc on admission 533, repeat EKG showed QTc 546 on 11/28.
PMH: HFrEF, Alzheimer's dementia, HTN, BPH, Ambulatory dysfunction
Psych Hx: outpatient psychiatrist Dr Morse since 2019; Rx Celexa, Zyprexa, Buspar, Aricept, Ativan 0.5 mg BID as needed. Reported hx of dx depression; past trial of Zoloft- caused diarrhea per
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
MSE: sleeping, resting quietly in bed. No current agitation. Unable to provide any history
Imp: Dementia, Alzheimer's type, progressive
Hx of depression
Rec: continue Aricept and Buspar. Agree with holding off Celexa given prolonged QTc
will follow
--- NOTE | 2023-12-05 15:12 | HOSPNOTE ---
Left a message for spouse to please call me to discuss hospice and the philosophy. Will await a call back.
[2023-12-05] MEDS: DUPHALAC/CHRONULAC 20 GRAMS PO ×2 (15:50→22:04)
--- NOTE | 2023-12-05 15:50 | CM ---
Patient remains in wrist restraints with medsitter. Discharge order removed as patient is in restraints. Rosana notified. This CM notified .
had requested DON from [facility] visit patient for possible admission. DON said patient must be able to stand and transfer in order to meet criteria for their facility. He does not at this time.
ordered follow-up hospice consult. Spoke with perforator who will visit patient and again in am.
Patient has not participated in therapy x 4 attempted sessions. He was agitated and not cooperative with sessions. would like to be available and observe patient during PT. Text to therapist forwarded with request.
[2023-12-05 15:55] VITALS: BP 109/65
[2023-12-05] MEDS: LOVENOX 40 MG SC (16:49)
[2023-12-05 16:56] LABS: Glucose - Point of Care 106 mg/dl (70-99)
[2023-12-05] MEDS: BUSPAR TUBE (21:19)
[2023-12-05] MEDS: ARICEPT 10 MG PO (22:05)
[2023-12-05] MEDS: BUSPAR 10 MG PO (22:05)
[2023-12-05 22:21] LABS: Glucose - Point of Care 138 mg/dl (70-99)
[2023-12-05 23:16] VITALS: BP 113/68
--- NOTE | 2023-12-06 04:05 | W.PN.UPDATE ---
Update Note
Progress Note Update
Nursing reporting patient continues to pull at wires and tubing, most recently attempting to pull qiu out. Patient with previous restraint order. Updated to soft-limb bilateral wrists, nursing to monitor for ability to discontinue JACINTO.
[2023-12-06 05:38] VITALS: BMI 19.7
[2023-12-06 06:00] VITALS: BMI 19.7
[2023-12-06 07:45] VITALS: BP 130/73
--- NOTE | 2023-12-06 07:53 | W.PN.HOSP.TC ---
Addendum entered and electronically signed by Huang Phan MD 12/06/23 13:33:
QTc remains prolonged at 445 ms.
Will continue holding Zyprexa, continue holding Celexa.
Give Ativan 0.5 mg stat IV, start Ativan 0.5 mg 3 times daily p.o.
Addendum entered and electronically signed by Huang Phan MD 12/06/23 12:36:
Patient had prolonged QTc on November 28, therefore Celexa and Zyprexa were held.
Will repeat stat EKG prior to resuming these meds.
If QTc continues to be prolonged, consider Ativan.
Original Note:
Today's Communication/Plan
-
see bold
Assessment / Plan
Assessment / Plan
Septic shock-secondary to source. He is COVID-19 positive unclear its role. HD stable. Remains Off of vasopressors.
Proteus bacteremia UTI-repeat cultures are sterile. Urine cultures noted. Urine cultures growing Proteus and Pseudomonas. Status post IV Zosyn, currently on Keflex 500 mg PO QID x 14 days (11/27- 12/10)
Severe leukocytosis-improving, monitor
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 Catheter exchanged on this admission.
Severe lactic acidosis secondary to sepsis-resolved
COVID-19 positivity-in view of sepsis picture was treated as possible active infection. Patient on room air-off of steroids and remdesivir now. Continue with quarantine till 12/07.
Acute kidney injury-suspect secondary to sepsis +_ prerenal. No evidence of obstruction on renal ultrasound. Resolved, creatinine now normal.
Alzheimer's dementia with behavioral disturbaces -unknown baseline. Patient is requiring restraints, psychiatry consulted for medication adjustments. He is usually on Aricept/Zyprexa/Celexa/Buspar, but currently only getting aricept and buspar.
Will resume Celexa 40 mg p.o. daily, resume Zyprexa 2.5 mg twice daily.
Anemia-changes in the H&H noted suspect probably dilutional. No obvious external bleeding. Continue to monitor hemoglobin
HFrEF-Clinically no evidence of CHF decompensation. Not on diuretics normally. Continue to follow weights and I&O's. Last known echo from August 2023 shows EF of 35 to 40% and no significant valvular abnormalities.
Other problems:
Essential hypertension -hold blood pressure medications for now.
BPH: resume Flomax
Ambulatory dysfunction
DVT proph: Continue with Lovenox
Full Code
Medically stable for discharge facility.
requesting hospice eval - hospice consult placed
is debating between discharge to memory unit vs hospice at home.
Continue to follow with /hospice evals regarding final dispo.
told that he is stable for discharge.
Physical Exam
General: No acute distress
HEENT: Normocephalic, Atraumatic, EOMI, MMM
Respiratory: Clear to Auscultation bilaterally
Cardiac: Normal S1/S2, Regular Rate and Rhythm
GI: Soft, Nontender, Nondistended, Normal Bowel Sounds
Extremities: No Clubbing, Cyanosis, or Edema
Neuro: Nonfocal/Grossly Intact
Psych: Calm, Cooperative
Derm: Confused
Anticipated Discharge: Within 24 hours
Subjective/Interval History
-
Date of Service: December 06, 2023
Patient continues to be agitated. He is eating his meals when he is fed. No fever. No vomiting.
Objective Data
-
Vital Signs:
Vital Signs
Temp Pulse Resp BP Pulse Ox
98.3 F 76 18 113/68 95
12/05/23 23:16 12/05/23 23:16 12/05/23 23:16 12/05/23 23:16 12/05/23 23:16
I&O
12/05/23 12/06/23 12/07/23
06:59 06:59 06:59
Intake Total 600 / 600 1580 / 1580
Output Total 925 / 925 975 / 975
Balance -325 / -325 605 / 605
[2023-12-06] MEDS: LIPITOR 10 MG TUBE (08:54)
[2023-12-06] MEDS: KEFLEX 250 MG/5 ML 500 MG PO ×4 (08:55→21:00)
[2023-12-06] MEDS: VITAMIN B-12 1000 MCG TUBE (08:55)
[2023-12-06] MEDS: REFRESH EYE DROPS (PF) 2 DROPS RIGHT EYE ×2 (08:55→20:59)
[2023-12-06] MEDS: BUSPAR 10 MG PO ×2 (08:55→20:59)
[2023-12-06] MEDS: DUPHALAC/CHRONULAC 20 GRAMS PO (08:58)
[2023-12-06] MEDS: DESENEX/MITRAZOL/ZEASORB 1 APPLIC TOPICAL ×2 (09:05→21:01)
[2023-12-06 09:14] LABS: Glucose - Point of Care 84 mg/dl (70-99)
[2023-12-06] MEDS: NOVOLOG FLEXPEN-MODERATE RESISTANCE SC ×3 (09:20→17:03)
--- NOTE | 2023-12-06 10:39 | W.PN.UPDATE ---
Update Note
Progress Note Update
Patient seen at bedside, chart reviewed, discussed with staff. Mr Benitez is resting comfortable. remains confused and at times agitated. Reportedly continues to pull at qiu catheter and as such remains in restraints. I recommend attempting to
explore alternatives to preventing pulling at catheter such as mitts or possibly placing an undergarment/pants on to deter this behavior. He has not been reported to show any other signs of aggression or concerns for safety.
Impression/Plan:� Dementia, Alzheimer's type, progressive; History of depression - Continue Aricept and Buspar.�Could restart Zyprexa if no contraindications otherwise. Would recheck QTC. Could continue to hold Celexa given prolonged QTC. It does
not appear his behavior warrants a PRN at this time, distraction/redirection most appropriate approach to prevent accidental removal of qiu catheter.
--- NOTE | 2023-12-06 10:54 | HOSPNOTE ---
Addendum entered by Myesha Vicente RN 12/06/23 13:42:
Long conversation with spouse in person. We discussed code status and hospice care. I encouraged the spouse to make a decision about making patient a DNR and allowing us to medicate the patient for his severe agitation. She agreed to an IV dose of
ativan since patient is trying to climb out of bed is restrained and yelling. I told the spouse she needs to make a decision about goals of care. Once again she is completely over whelmed unable to make any other decisions, repeating the same
questions and does not know what to do. Case management aware. I will try to speak with spouse again tomorrow.
Original Note:
Tried calling spouse again and left another message to please call back.
--- NOTE | 2023-12-06 10:57 | W.PN.ID1 ---
Date of Service
Date of Service: December 06, 2023
Today's Communication
- keflex 500 mg PO QID x 14 days (11/27-01/10)
ID service will no longer actively follow this patient please recall for further questions
Assessment / Plan
UTI due to Proteus
Proteus Bacteremia
RAFFI - resolving
Chronic Wylie due to BPH
- keflex 500 mg PO QID x 14 days (11/27-01/10)
- follow up with pcp
COVID-19
Resolved Hypoxemia
- isolation x10 days from symptom onset while inpatient, 11/27-12/07
- follow up with pcp
ID service will no longer actively follow this patient please recall for further questions
Chief Complaint
-: UTI and Other (covid)
Subjective / Review of Systems
afebrile
bp stable
no complaints
Vital Signs / Physical Exam
Vital Signs
Vital Signs
Temp Pulse Resp BP Pulse Ox
97.9 F 78 12 130/73 99
12/06/23 07:45 12/06/23 07:45 12/06/23 07:45 12/06/23 07:45 12/06/23 10:18
Physical Exam
Constitutional: No Acute Distress and Chronically Ill
Cardiovascular: Regular Rate
Pulmonary: Symmetric and Non Labored
Gastrointestinal: Non Distended
Skin: Dry
Neurological: Awake
Objective Data
Lab Data
Lab Results
12/01/23 04:30
11/30/23 04:35
PT 16.6 Sec (11.4-14.6) H 11/29/23 04:05
INR 1.36 11/29/23 04:05
Estimated Creat Clear 57 ml/min 11/30/23 04:35
Lactic Acid 1.2 mmol/L (0.7-2.0) 11/29/23 04:05
Total Bilirubin 1.0 mg/dl (0.2-1.3) 11/29/23 04:05
AST 26 U/L (17-59) 11/29/23 04:05
ALT 19 U/L (0-50) 11/29/23 04:05
Alkaline Phosphatase 81 U/L (38-126) 11/29/23 04:05
Most recent labs reviewed.
Micro Results:
11/28/23 12:54 Urine Culture - Final
Urine Proteus mirabilis
Pseudomonas aeruginosa
11/28/23 04:22 Blood Culture - Final
Blood/Venous Proteus mirabilis
Gram Stain - Final
11/28/23 04:22 Blood Culture - Final
Blood/Venous Proteus mirabilis
Gram Stain - Final
11/28/23 04:22 Urine Culture - Final
Urine Proteus mirabilis
11/28/23 12:52 MRSA Screen - Final
Nose No Methicillin Resistant Staphylococcus aureus isolated.
11/28/23 06:53 Influenza Types A & B (VARGAS) - Final
Nasal Swab Negative for Influenza A & B, NAAT
Negative results must be combined with clinical observations
and patient history.
Nucleic Acid Amplification test (NAAT)performed on the
[employer] platform.
[2023-12-06] MEDS: VITAMIN C 1000 MG PO (12:19)
[2023-12-06 12:27] LABS: Glucose - Point of Care 86 mg/dl (70-99)
[2023-12-06] MEDS: FLOMAX 0.400000000000000022 MG PO (13:25)
[2023-12-06] MEDS: NSS (PRESERVATIVE FREE) 0.25 ML IV (13:26)
[2023-12-06] MEDS: ATIVAN 0.5 MG IV (13:26)
--- NOTE | 2023-12-06 15:45 | CM ---
MD requested follow-up hospice consult. Hospice nurse spoke with again. has ambivalence about any of the discharge options discussed. Patient does remain in restraints. ID has signed off on case. Will continue to follow.
[2023-12-06 16:58] LABS: Glucose - Point of Care 125 mg/dl (70-99)
[2023-12-06] MEDS: VISBIOME 2 CAP PO (17:02)
[2023-12-06] MEDS: ATIVAN 0.5 MG PO ×2 (17:02→21:00)
[2023-12-06] MEDS: LOVENOX 40 MG SC (17:03)
[2023-12-06] MEDS: DUPHALAC/CHRONULAC PO (19:31)
[2023-12-06] MEDS: ARICEPT 10 MG PO (20:59)
[2023-12-06 21:27] LABS: Glucose - Point of Care 112 mg/dl (70-99)
[2023-12-06 23:19] VITALS: BP 117/65
[2023-12-07 05:07] LABS: % Basophils 0.2 % (0-2); % Eosinophils 4.4 % (0-6); % Lymphocytes 16.1 % (20.5-51.1); % Monocytes 10.2 % (1.7-9.3); % Neutrophils 68.1 % (42.2-75.2); Absolute Eosinophils 0.4 10^3/uL (0-0.7); Absolute Immature Granulocytes 0.1 10^3/uL (0-0.05); Absolute Lymphocytes 1.6 10^3/uL (1.2-3.4); Absolute Neutrophils 6.8 10^3/uL (1.4-6.5); Hematocrit 35.4 % (39.0-52.0); Hemoglobin 11.5 g/dL (13.0-18.0); Mean Corp Hgb Conc. 32.5 g/dL (33.0-37.0); Mean Corpuscular Hgb 29.9 pg (27.0-31.0); Mean Corpuscular Volume 91.9 fL (80.0-94.0); Mean Platelet Volume 9.7 fL (7.4-10.4); Nucleated Red Blood Cells % 0 % (-); Platelet Count 357 10^3/uL (130-400); Red Blood Cell Count 3.85 10^6/uL (4.70-6.10); Red Cell Dist. Width 13.8 % (11.5-14.5)
[2023-12-07 05:46] LABS: ALT (SGPT) 25 U/L (0-50); AST (SGOT) 26 U/L (17-59); Albumin 2.6 g/dl (3.5-5.0); Alkaline Phosphatase 74 U/L (38-126); Blood Urea Nitrogen 19 mg/dl (9-20); Calcium 8.4 mg/dl (8.4-10.2); Carbon Dioxide 25 mmol/L (22-30); Chloride 106 mmol/L (98-107); Estimated Creatinine Clearance 66 ml/min; Glucose 69 mg/dl (70-99); Potassium 4.6 mmol/L (3.5-5.1); Sodium 136 mmol/L (135-145); Total Protein 5.3 g/dl (6.3-8.2); eGFR > 60.00
[2023-12-07 05:50] VITALS: BMI 19.4
[2023-12-07 06:00] VITALS: BMI 19.4
[2023-12-07 07:50] VITALS: BP 114/69
[2023-12-07] MEDS: VISBIOME 2 CAP PO (08:26)
[2023-12-07] MEDS: LIPITOR 10 MG TUBE (08:26)
[2023-12-07] MEDS: FLOMAX PO (08:26)
[2023-12-07] MEDS: ATIVAN 0.5 MG PO ×3 (08:26→20:58)
[2023-12-07] MEDS: VITAMIN B-12 1000 MCG TUBE (08:26)
[2023-12-07] MEDS: REFRESH EYE DROPS (PF) 2 DROPS RIGHT EYE ×2 (08:26→21:01)
[2023-12-07] MEDS: KEFLEX 250 MG/5 ML 500 MG PO ×4 (08:27→21:26)
[2023-12-07] MEDS: BUSPAR 10 MG PO ×2 (08:27→20:59)
[2023-12-07] MEDS: DESENEX/MITRAZOL/ZEASORB 1 APPLIC TOPICAL ×2 (08:27→21:01)
--- NOTE | 2023-12-07 08:28 | W.PN.HOSP.TC ---
Today's Communication/Plan
-
see bold
Assessment / Plan
Assessment / Plan
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 Patient is usually on Aricept/Zyprexa/Celexa/Buspar. Zyprexa and Celexa have been held because of QT prolongation. Will stop Aricept since this also causes QT prolongation.
Appreciate psychiatry input, who has discussed with pharmacy�Zyprexa does not prolong QT. Psychiatry will order Zyprexa.
QT prolongation -QTc improved yesterday at 445 ms, down from 546 ms. Stop Aricept. Continue holding Celexa. Repeat daily EKG
Septic shock-secondary to source. He is COVID-19 positive unclear its role. HD stable. Remains Off of vasopressors.
Proteus bacteremia UTI-repeat cultures are sterile. Urine cultures noted. Urine cultures growing Proteus and Pseudomonas. Status post IV Zosyn, currently on Keflex 500 mg PO QID x 14 days (11/27- 12/10)
Severe leukocytosis-improving, monitor
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 Catheter exchanged on this admission.
Severe lactic acidosis secondary to sepsis-resolved
COVID-19 positivity-in view of sepsis picture was treated as possible active infection. Patient on room air-off of steroids and remdesivir now. Continue with quarantine till 12/07.
Acute kidney injury-suspect secondary to sepsis +_ prerenal. No evidence of obstruction on renal ultrasound. Resolved, creatinine now normal.
BPH: resumed Flomax
Anemia-changes in the H&H noted suspect probably dilutional. No obvious external bleeding. Continue to monitor hemoglobin
HFrEF-Clinically no evidence of CHF decompensation. Not on diuretics normally. Continue to follow weights and I&O's. Last known echo from August 2023 shows EF of 35 to 40% and no significant valvular abnormalities.
Essential hypertension -patient is normotensive without any medications
Ambulatory dysfunction
DVT proph: Continue with Lovenox
Full Code
Medically stable for discharge to facility.
requesting hospice eval - hospice consult placed
is debating between discharge to memory unit vs hospice at home.
Continue to follow with /hospice evals regarding final dispo.
told that he is stable for discharge.
Discussed with nursing staff and psychiatry 12/06
Total time spent to see the patient on the floor, examine the patient, review data and lab results, discuss treatment plan with patient, nursing staff around 51 minutes.
Physical Exam
General: No acute distress
HEENT: Normocephalic, Atraumatic, EOMI, MMM
Respiratory: Clear to Auscultation bilaterally
Cardiac: Normal S1/S2, Regular Rate and Rhythm
GI: Soft, Nontender, Nondistended, Normal Bowel Sounds
Extremities: No Clubbing, Cyanosis, or Edema
Neuro: Nonfocal/Grossly Intact
Psych: Calm, Cooperative
Derm: Confused
Anticipated Discharge: > 48 hours
Subjective/Interval History
-
Date of Service: December 07, 2023
Patient continues to be agitated, requiring restraints. He remains confused.
Objective Data
-
Labs:
Laboratory Results
12/07/23
03:49
WBC 10.0
Hgb 11.5 L
Hct 35.4 L
Plt Count 357 D
Sodium 136
Potassium 4.6
Chloride 106
Carbon Dioxide 25
BUN 19
Creatinine 0.7
Glucose 69 L
Calcium 8.4
Total Bilirubin 1.0
AST 26
ALT 25
Alkaline Phosphatase 74
Vital Signs:
Vital Signs
Temp Pulse Resp BP Pulse Ox
98.2 F 103 20 117/65 96
12/06/23 23:19 12/06/23 23:19 12/06/23 23:19 12/06/23 23:19 12/06/23 23:19
I&O
12/06/23 12/07/23 12/08/23
06:59 06:59 06:59
Intake Total 1580 / 1580 560 / 560
Output Total 975 / 975 1025 / 1025
Balance 605 / 605 -465 / -465
[2023-12-07 08:55] LABS: Glucose - Point of Care 86 mg/dl (70-99)
[2023-12-07] MEDS: NOVOLOG FLEXPEN-MODERATE RESISTANCE SC ×3 (08:58→16:55)
--- NOTE | 2023-12-07 11:06 | W.PN.UPDATE ---
Update Note
Progress Note Update
patient seen chart reviewed. discussed with nursing and with dr recinos. ativan had been increased to one mg qid but patient was this am quite sleepy. zyprexa does not prolong qtc clinically signficantly in the po form but it had been dc'ed. will
restart zyprexa 2.5 mg bid and decrease the ativan to o.5 mg qid . hopefully if zyprexa is effective can decrease ativan further. if he is too sedated with zyprexa could use risperdal . noted aricept stopped bc qtc issues. aricept is unlikely at
this point to do much for patient given that dementia is not in the early stages. noted patient is full code. dr recinos informed me that family is weighing comfort care/hospice measures but has not made a decision. will follow
[2023-12-07 12:31] LABS: Glucose - Point of Care 71 mg/dl (70-99)
[2023-12-07 15:45] VITALS: BP 118/69
--- NOTE | 2023-12-07 16:35 | CM ---
Remains in restraints. Pulls at qiu catheter. Discharge Plan of Care: TBD. says her invoice at [facility] is not due until the end of the month. This is contrary to what Deirdre has reported.
[2023-12-07 16:52] LABS: Glucose - Point of Care 77 mg/dl (70-99)
[2023-12-07] MEDS: ATIVAN PO (17:04)
[2023-12-07] MEDS: LOVENOX 40 MG SC (17:06)
--- NOTE | 2023-12-07 18:46 | PTCARENOTE ---
Patient drowsy throughout shift, able to be roused with verbal and tactile stimuli. 1800 dose of 0.5 mg PO ativan held, this RN communicated with MD and Psychiatry, telephone order taken by this RN from Psych to decrease scheduled ativan frequency
from QID to BID; parameters maintained to hold for sedation.
[2023-12-07] MEDS: ZYPREXA ZYDIS (ORALLY DISINTEGRATING) 2.5 MG PO (20:59)
[2023-12-07 22:39] LABS: Glucose - Point of Care 111 mg/dl (70-99)
[2023-12-08 00:26] VITALS: BP 94/67
--- NOTE | 2023-12-08 01:52 | PTCARENOTE ---
Restrains removed after pt received HS meds and noted calm and asleep, b/l soft wrist restrains reapplied at this time as pt was seen pulling his qiu cath tubbing.
[2023-12-08 06:00] VITALS: BMI 19.4
[2023-12-08 07:01] VITALS: BP 123/69
[2023-12-08 07:31] LABS: Glucose - Point of Care 62 mg/dl (70-99)
[2023-12-08] MEDS: NOVOLOG FLEXPEN-MODERATE RESISTANCE SC ×3 (07:51→17:20)
[2023-12-08 08:00] LABS: Glucose - Point of Care 70 mg/dl (70-99)
--- NOTE | 2023-12-08 08:34 | W.PN.HOSP.TC ---
Today's Communication/Plan
-
see bold
Assessment / Plan
Assessment / Plan
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 Patient is usually on Aricept/Zyprexa/Celexa/Buspar. Zyprexa and Celexa have been held because of QT prolongation. Will stop Aricept since this also causes QT prolongation.
Appreciate psychiatry input, who has discussed with pharmacy�Zyprexa does not prolong QT. Mentation much improved on Zyprexa and Ativan twice a day. Continue medication adjustments as per psychiatry.
QT prolongation -QTc improved at 451 ms, down from 546 ms. Stopped Aricept. Continue holding Celexa. Repeat daily EKG
Septic shock-secondary to source. He is COVID-19 positive unclear its role. HD stable. Remains Off of vasopressors.
Proteus bacteremia UTI-repeat cultures are sterile. Urine cultures noted. Urine cultures growing Proteus and Pseudomonas. Status post IV Zosyn, currently on Keflex 500 mg PO QID x 14 days (11/27- 12/10)
Severe leukocytosis- resolved, monitor
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 Catheter exchanged on this admission.
Severe lactic acidosis secondary to sepsis-resolved
COVID-19 positivity-in view of sepsis picture was treated as possible active infection. Patient on room air-off of steroids and remdesivir now. Continue with quarantine till 12/07.
Acute kidney injury-suspect secondary to sepsis +_ prerenal. No evidence of obstruction on renal ultrasound. Resolved, creatinine now normal.
BPH: resumed Flomax
Anemia-changes in the H&H noted suspect probably dilutional. No obvious external bleeding. Continue to monitor hemoglobin
HFrEF-Clinically no evidence of CHF decompensation. Not on diuretics normally. Continue to follow weights and I&O's. Last known echo from August 2023 shows EF of 35 to 40% and no significant valvular abnormalities.
Essential hypertension -patient is normotensive without any medications
Ambulatory dysfunction
DVT proph: Continue with Lovenox
Full Code
Medically stable for discharge to facility.
requesting hospice eval - hospice consult placed
is debating between discharge to memory unit vs hospice at home.
Continue to follow with /hospice evals regarding final dispo.
told that he is stable for discharge.
Discussed with nursing staff and psychiatry 12/07
Physical Exam
General: No acute distress
HEENT: Normocephalic, Atraumatic, EOMI, MMM
Respiratory: Clear to Auscultation bilaterally
Cardiac: Normal S1/S2, Regular Rate and Rhythm
GI: Soft, Nontender, Nondistended, Normal Bowel Sounds
Extremities: No Clubbing, Cyanosis, or Edema
Neuro: Nonfocal/Grossly Intact
Psych: Calm, Cooperative
Derm: Confused
Anticipated Discharge: 24 - 48 hours
Subjective/Interval History
-
Date of Service: December 08, 2023
Patient remains confused, he does not know who he is. Nursing staff reports that he is more calm with the new medication adjustments.
No fever, no vomiting.
Objective Data
-
Vital Signs:
Vital Signs
Temp Pulse Resp BP Pulse Ox
97.8 F 78 16 123/69 94
12/08/23 07:01 12/08/23 07:01 12/08/23 07:01 12/08/23 07:01 12/08/23 07:01
I&O
12/07/23 12/08/23 12/09/23
06:59 06:59 06:59
Intake Total 560 / 560 600 / 600
Output Total 1025 / 1025 1450 / 1450
Balance -465 / -465 -850 / -850
--- NOTE | 2023-12-08 09:14 | W.PN.UPDATE ---
Update Note
Progress Note Update
patient seen chart reviewed. discussed w nursing. mr chi is awake and more alert today although remains confused. he was cooperative as the tech and i adjusted his position in the bed. did not make any changes in his medications but would hold
for sedation. last evening an attempt was made to remove restraints but patient was interfering w qiu and they were replaced. this am no issues thus far. hopefully another attempt can be made to remove restraints. this am blood sugar was on the
low side (62) but came up w oj. will see in the am.
--- NOTE | 2023-12-08 09:55 | HOSPNOTE ---
Multiple hospice conversations with spouse and goals of care. Spouse unable to make any decisions. Will continue to follow.
[2023-12-08] MEDS: VITAMIN B-12 1000 MCG TUBE (09:57)
[2023-12-08] MEDS: FLOMAX 0.400000000000000022 MG PO (09:57)
[2023-12-08] MEDS: REFRESH EYE DROPS (PF) 2 DROPS RIGHT EYE ×2 (09:58→20:16)
[2023-12-08] MEDS: ZYPREXA ZYDIS (ORALLY DISINTEGRATING) 2.5 MG PO ×2 (09:58→20:17)
[2023-12-08] MEDS: LIPITOR 10 MG TUBE (09:58)
[2023-12-08] MEDS: KEFLEX 250 MG/5 ML 500 MG PO ×4 (09:58→22:31)
[2023-12-08] MEDS: BUSPAR 10 MG PO ×2 (09:59→20:16)
[2023-12-08] MEDS: ATIVAN 0.5 MG PO ×2 (09:59→20:16)
[2023-12-08] MEDS: DESENEX/MITRAZOL/ZEASORB 1 APPLIC TOPICAL ×2 (09:59→20:19)
[2023-12-08 12:05] LABS: Glucose - Point of Care 98 mg/dl (70-99)
[2023-12-08] MEDS: VITAMIN C 1000 MG PO (13:38)
[2023-12-08 15:56] VITALS: BP 120/68
--- NOTE | 2023-12-08 16:12 | CM ---
Remains in restraints. Attempt to remove but patient pulling at qiu. Discharge plan of care TBD. Needs to be out of restraints before placement. needs to pay outstanding invoice at [facility] before they will consider accepting.
Patient not participating in therapy. Unable to send referrals until participates. Discussed LTC with . She does not want to apply for Medicaid for LTC.
[2023-12-08 17:10] LABS: Glucose - Point of Care 93 mg/dl (70-99)
[2023-12-08] MEDS: LOVENOX 40 MG SC (17:34)
[2023-12-08 21:46] LABS: Glucose - Point of Care 140 mg/dl (70-99)
[2023-12-08 23:11] VITALS: BP 101/64
[2023-12-09 04:03] LABS: Glucose - Point of Care 84 mg/dl (70-99)
[2023-12-09 06:00] VITALS: BMI 18.8
[2023-12-09 07:19] LABS: Glucose - Point of Care 80 mg/dl (70-99)
[2023-12-09 07:44] VITALS: BP 129/74
[2023-12-09] MEDS: NOVOLOG FLEXPEN-MODERATE RESISTANCE SC ×3 (08:05→17:08)
[2023-12-09] MEDS: KEFLEX 250 MG/5 ML 500 MG PO ×4 (08:11→21:00)
[2023-12-09] MEDS: REFRESH EYE DROPS (PF) 2 DROPS RIGHT EYE ×2 (08:13→19:59)
[2023-12-09] MEDS: VITAMIN B-12 1000 MCG TUBE (08:13)
[2023-12-09] MEDS: BUSPAR 10 MG PO ×2 (08:13→19:59)
[2023-12-09] MEDS: FLOMAX 0.400000000000000022 MG PO (08:13)
[2023-12-09] MEDS: ATIVAN 0.5 MG PO ×2 (08:13→19:59)
[2023-12-09] MEDS: ZYPREXA ZYDIS (ORALLY DISINTEGRATING) 2.5 MG PO ×2 (08:13→19:59)
[2023-12-09] MEDS: LIPITOR 10 MG TUBE (08:13)
[2023-12-09] MEDS: DESENEX/MITRAZOL/ZEASORB 1 APPLIC TOPICAL ×2 (08:14→20:03)
[2023-12-09] MEDS: LOW STRENGTH ASPIRIN 81 MG PO (08:14)
--- NOTE | 2023-12-09 08:35 | W.PN.HOSP.TC ---
Today's Communication/Plan
-
see bold
Assessment / Plan
Assessment / Plan
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 Patient is usually on Aricept/Zyprexa/Celexa/Buspar. Zyprexa and Celexa have been held because of QT prolongation. Will stop Aricept since this also causes QT prolongation.
Appreciate psychiatry input, who has discussed with pharmacy�Zyprexa does not prolong QT. Mentation much improved on Zyprexa 2.5 mg bid and Ativan 0.5 mg bid. Continue medication adjustments as per psychiatry.
QT prolongation -QTc improved at 451 ms, down from 546 ms. Stopped Aricept. Continue holding Celexa. Repeat EKG in am
Septic shock-secondary to source. He is COVID-19 positive unclear its role. HD stable. Remains Off of vasopressors.
Proteus bacteremia UTI-repeat cultures are sterile. Urine cultures noted. Urine cultures growing Proteus and Pseudomonas. Status post IV Zosyn, currently on Keflex 500 mg PO QID x 14 days (11/27- 12/10)
Severe leukocytosis- resolved, monitor
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 Catheter exchanged on this admission.
Severe lactic acidosis secondary to sepsis-resolved
COVID-19 positivity-in view of sepsis picture was treated as possible active infection. Patient on room air-off of steroids and remdesivir now. Has completed 10-day quarantine, now off isolation.
Acute kidney injury-suspect secondary to sepsis +_ prerenal. No evidence of obstruction on renal ultrasound. Resolved, creatinine now normal.
BPH: resumed Flomax
Anemia-changes in the H&H noted suspect probably dilutional. No obvious external bleeding. Continue to monitor hemoglobin
HFrEF-Clinically no evidence of CHF decompensation. Not on diuretics normally. Continue to follow weights and I&O's. Last known echo from August 2023 shows EF of 35 to 40% and no significant valvular abnormalities.
Essential hypertension -patient is normotensive without any medications
Ambulatory dysfunction
DVT proph: Continue with Lovenox
Full Code
Medically stable for discharge to facility.
requesting hospice eval - hospice consult placed
is debating between discharge to memory unit vs hospice at home.
Continue to follow with /hospice evals regarding final dispo.
told that he is stable for discharge.
Discussed with nursing staff and psychiatry 12/08
Physical Exam
General: Frail, chronically debilitated no acute distress
HEENT: Normocephalic, Atraumatic, EOMI, MMM
Respiratory: Clear to Auscultation bilaterally
Cardiac: Normal S1/S2, Regular Rate and Rhythm
GI: Soft, Nontender, Nondistended, Normal Bowel Sounds
: Chronic Wylie
Extremities: No Clubbing, Cyanosis, or Edema
Neuro: Nonfocal/Grossly Intact
Psych: Intermittently agitated
Derm: Confused
Anticipated Discharge: 24 - 48 hours
Subjective/Interval History
-
Date of Service: December 09, 2023
Patient is more calm with taking the medications.
Objective Data
-
Vital Signs:
Vital Signs
Temp Pulse Resp BP Pulse Ox
97.7 F 110 17 129/74 94
12/09/23 07:44 12/09/23 07:44 12/09/23 07:44 12/09/23 07:44 12/09/23 07:44
I&O
12/08/23 12/09/23 12/10/23
06:59 06:59 06:59
Intake Total 600 / 600 700 / 700
Output Total 1450 / 1450 1700 / 1700
Balance -850 / -850 -1000 / -1000
--- NOTE | 2023-12-09 10:31 | PTCARENOTE ---
pt in bed after eating breakfast with b/l SCDs and fiber filled boots intact. pt has qiu catheter in place and takes pills crushed in applesauce. pt taken out of restraints in attempt to see if he is able to stay off. medsitter is aware and in
place in the room at this time. pt is on a bed alarm as well.
[2023-12-09 11:45] LABS: Glucose - Point of Care 88 mg/dl (70-99)
--- NOTE | 2023-12-09 12:08 | W.PN.UPDATE ---
Update Note
Progress Note Update
patient seen chart reviewed. spoke with nursing mr chi was awake when i saw him quietly lying in bed. he did respond to my questions but every answer was no and nursing tells me that is typical....he always says no . eg when you offer to feed
him he says no but when food is presented he opens his mouth. for what it is worth he said he does not have pain and was not uncomfortable . he was not reaching for the qiu. he does seem to have quieted with zyprexa and ativan. no changes made in
his medications. not clear to me however how useful buspar is but given that he is calm will leave it for now
--- NOTE | 2023-12-09 15:54 | CM ---
Patient out of restraints as of this am. continues undecided with discharge plan of care. Three viable options: Patient returns to [facility] ONLY will be accepted after pays monetary arrears. files for Medicaid for LTC.
makes decision for hospice care. Patient is not participating in therapy and not eligible for rehab services.
[2023-12-09 15:57] VITALS: BP 103/58
[2023-12-09 16:58] LABS: Glucose - Point of Care 82 mg/dl (70-99)
[2023-12-09] MEDS: LOVENOX 40 MG SC (18:00)
[2023-12-09 21:48] LABS: Glucose - Point of Care 166 mg/dl (70-99)
[2023-12-09 23:01] VITALS: BP 104/63
[2023-12-10 03:38] VITALS: BMI 19.1
[2023-12-10 07:00] VITALS: BP 113/75
--- NOTE | 2023-12-10 08:08 | W.PN.HOSP.TC ---
Today's Communication/Plan
-
Recommended hospice to his 12/08.
Continue goals of care discussion, psychiatry/hospice nurse following.
Assessment / Plan
Assessment / Plan
Goals of care -discussed with on 12/08, patient is suffering. He has no quality of life. Recommended hospice to his 12/08. Continue goals of care discussion, psychiatry/hospice nurse following.
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 Patient is usually on Aricept/Zyprexa/Celexa/Buspar. Zyprexa and Celexa have been held because of QT prolongation. Will stop Aricept since this also causes QT prolongation.
Appreciate psychiatry input, who has discussed with pharmacy�Zyprexa does not prolong QT. Mentation much improved on Zyprexa 2.5 mg bid and Ativan 0.5 mg bid. Continue medication adjustments as per psychiatry.
QT prolongation -QTc 467 ms, was 451 ms, down from 546 ms. Stopped Aricept. Continue holding Celexa.
Septic shock-secondary to source. He is COVID-19 positive unclear its role. HD stable. Remains Off of vasopressors.
Proteus bacteremia UTI-repeat cultures are sterile. Urine cultures noted. Urine cultures growing Proteus and Pseudomonas. Status post IV Zosyn, currently on Keflex 500 mg PO QID x 14 days (11/27- 12/10)
Severe leukocytosis- resolved, monitor
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 Catheter exchanged on this admission.
Severe lactic acidosis secondary to sepsis-resolved
COVID-19 positivity-in view of sepsis picture was treated as possible active infection. Patient on room air-off of steroids and remdesivir now. Has completed 10-day quarantine, now off isolation.
Acute kidney injury-suspect secondary to sepsis +_ prerenal. No evidence of obstruction on renal ultrasound. Resolved, creatinine now normal.
BPH: resumed Flomax
Anemia-changes in the H&H noted suspect probably dilutional. No obvious external bleeding. Continue to monitor hemoglobin
HFrEF-Clinically no evidence of CHF decompensation. Not on diuretics normally. Continue to follow weights and I&O's. Last known echo from August 2023 shows EF of 35 to 40% and no significant valvular abnormalities.
Essential hypertension -patient is normotensive without any medications
Ambulatory dysfunction
DVT proph: Continue with Lovenox
Full Code
Medically stable for discharge to facility.
requesting hospice eval - hospice consult placed
is debating between discharge to memory unit vs hospice at home.
Continue to follow with /hospice evals regarding final dispo.
told that he is stable for discharge.
Discussed with nursing staff and psychiatry 12/08
Physical Exam
General: Frail, chronically debilitated no acute distress
HEENT: Normocephalic, Atraumatic, EOMI, MMM
Respiratory: Clear to Auscultation bilaterally
Cardiac: Normal S1/S2, Regular Rate and Rhythm
GI: Soft, Nontender, Nondistended, Normal Bowel Sounds
: Chronic Wylie
Extremities: No Clubbing, Cyanosis, or Edema
Neuro: Nonfocal/Grossly Intact
Psych: Intermittently agitated
Derm: Confused
Anticipated Discharge: 24 - 48 hours
Subjective/Interval History
-
Date of Service: December 10, 2023
Patient is off restraints, does not answer any questions, does not know who he is. No fever, no vomiting.
Objective Data
-
Vital Signs:
Vital Signs
Temp Pulse Resp BP Pulse Ox
97.7 F 95 20 113/75 100
12/10/23 07:00 12/10/23 07:00 12/10/23 07:00 12/10/23 07:00 12/10/23 07:00
I&O
12/09/23 12/10/23 12/11/23
06:59 06:59 06:59
Intake Total 700 / 700 420 / 420
Output Total 1700 / 1700 450 / 450
Balance -1000 / -1000 -30 / -30
[2023-12-10] MEDS: ATIVAN 0.5 MG PO (09:27)
[2023-12-10 09:34] LABS: Glucose - Point of Care 96 mg/dl (70-99)
[2023-12-10] MEDS: BUSPAR 10 MG PO ×2 (09:34→19:44)
[2023-12-10] MEDS: KEFLEX 250 MG/5 ML 500 MG PO ×4 (09:34→21:12)
[2023-12-10] MEDS: VITAMIN B-12 1000 MCG TUBE (09:34)
[2023-12-10] MEDS: ZYPREXA ZYDIS (ORALLY DISINTEGRATING) 2.5 MG PO (09:35)
[2023-12-10] MEDS: REFRESH EYE DROPS (PF) 2 DROPS RIGHT EYE ×2 (09:35→19:44)
[2023-12-10] MEDS: LIPITOR 10 MG TUBE (09:35)
[2023-12-10] MEDS: FLOMAX 0.400000000000000022 MG PO (09:35)
[2023-12-10] MEDS: NOVOLOG FLEXPEN-MODERATE RESISTANCE SC ×3 (09:37→16:42)
[2023-12-10] MEDS: DESENEX/MITRAZOL/ZEASORB 1 APPLIC TOPICAL ×2 (09:37→19:45)
--- NOTE | 2023-12-10 12:03 | W.PN.UPDATE ---
Update Note
Progress Note Update
patient seen chart reviewed. discussed w nursing and with dr recinos. the patient today was sleeping. he did open his eyes but did not interact with me. he has not required a prn but had been receiving a sari dose of medications with a hold for
sedation. will dc scheduled meds as the last two days he was sleepy when i saw him . have left a prn of half the scheduled doses and monitor. i am aware that patient's has expressed concerns that more needs to be done for her but it
is not clear what that might be at this time . changing code status to dnr has been discussed with who has not acted upon this. ms keene informed me that there are $ issues that prevent patient returning to [facility] and has not been cooperative
with MA application to remediate the situation. is preferring to have mr chi come home so she could care for him. will have psych look in on him tomorrow.
[2023-12-10] MEDS: VITAMIN C 1000 MG PO (12:17)
[2023-12-10 12:24] LABS: Glucose - Point of Care 102 mg/dl (70-99)
[2023-12-10 15:00] VITALS: BP 108/72
[2023-12-10 15:09] VITALS: BP 108/72; O2SAT 95
[2023-12-10 16:41] LABS: Glucose - Point of Care 98 mg/dl (70-99)
[2023-12-10] MEDS: LOVENOX 40 MG SC (17:13)
[2023-12-10] MEDS: ZYPREXA 2.5 MG PO (19:44)
[2023-12-10 21:24] LABS: Glucose - Point of Care 168 mg/dl (70-99)
[2023-12-10 23:15] VITALS: BP 116/73
[2023-12-11] MEDS: ATIVAN 0.25 MG PO ×5 (00:07→20:03)
[2023-12-11 06:00] VITALS: BMI 19.0
[2023-12-11 07:40] VITALS: BP 146/61
--- NOTE | 2023-12-11 08:02 | W.PN.HOSP.TC ---
Today's Communication/Plan
-
agreed to change CODE STATUS to DNR
Assessment / Plan
Assessment / Plan
Goals of care -discussed with on 12/08 & 12/10, patient has no quality of life. She has agreed to changing him to DNR. She is hopeful that he will improve. Will likely need to be discharged to either SNF vs memory care unit with PT.
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 Patient is usually on Aricept/Zyprexa/Celexa/Buspar. Zyprexa and Celexa have been held because of QT prolongation. Will stop Aricept since this also causes QT prolongation.
Appreciate psychiatry input, who has discussed with pharmacy�Zyprexa does not prolong QT. Mentation much improved on Zyprexa 2.5 mg bid. Continue Ativan as needed.
QT prolongation -QTc 467 ms, was 451 ms, down from 546 ms. Stopped Aricept. Continue holding Celexa. Repeat EKG in the morning.
Septic shock-secondary to source. He is COVID-19 positive unclear its role. HD stable. Remains Off of vasopressors.
Proteus bacteremia UTI-repeat cultures are sterile. Urine cultures noted. Urine cultures growing Proteus and Pseudomonas. Status post IV Zosyn, currently on Keflex 500 mg PO QID x 14 days (11/27- 12/10)
Severe leukocytosis- resolved, monitor
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 Catheter exchanged on this admission.
Severe lactic acidosis secondary to sepsis-resolved
COVID-19 positivity-in view of sepsis picture was treated as possible active infection. Patient on room air-off of steroids and remdesivir now. Has completed 10-day quarantine, now off isolation.
Acute kidney injury-suspect secondary to sepsis +_ prerenal. No evidence of obstruction on renal ultrasound. Resolved, creatinine now normal.
BPH: resumed Flomax
Anemia-changes in the H&H noted suspect probably dilutional. No obvious external bleeding. Continue to monitor hemoglobin
HFrEF-Clinically no evidence of CHF decompensation. Not on diuretics normally. Continue to follow weights and I&O's. Last known echo from August 2023 shows EF of 35 to 40% and no significant valvular abnormalities.
Essential hypertension -patient is normotensive without any medications
Ambulatory dysfunction
DVT proph: Continue with Lovenox
Full Code
Medically stable for discharge to facility.
requesting hospice eval - hospice consult placed
is debating between discharge to memory unit vs hospice at home.
Continue to follow with /hospice evals regarding final dispo.
told that he is stable for discharge.
Total time spent to see the patient on the floor, examine the patient, review data and lab results, discuss treatment plan with patient, nursing staff around 51 minutes.
Physical Exam
General: Frail, chronically debilitated no acute distress
HEENT: Normocephalic, Atraumatic, EOMI, MMM
Respiratory: Clear to Auscultation bilaterally
Cardiac: Normal S1/S2, Regular Rate and Rhythm
GI: Soft, Nontender, Nondistended, Normal Bowel Sounds
: Chronic Wylie
Extremities: No Clubbing, Cyanosis, or Edema
Neuro: Nonfocal/Grossly Intact
Psych: Intermittently agitated
Derm: Confused
Anticipated Discharge: 24 - 48 hours
Subjective/Interval History
-
Date of Service: December 11, 2023
Nursing staff reports the patient was agitated earlier this morning, requiring 2 doses of as needed Ativan. Currently he is calm, his is feeding him.
Objective Data
-
Vital Signs:
Vital Signs
Temp Pulse Resp BP Pulse Ox
98.1 F 106 18 116/73 92
12/10/23 23:15 12/10/23 23:15 12/10/23 23:15 12/10/23 23:15 12/10/23 23:15
I&O
12/10/23 12/11/23 12/12/23
06:59 06:59 06:59
Intake Total 420 / 420 1200 / 1200
Output Total 450 / 450 1325 / 1325
Balance -30 / -30 -125 / -125
[2023-12-11] MEDS: LIPITOR 10 MG TUBE (08:19)
[2023-12-11] MEDS: BUSPAR 10 MG PO ×2 (08:19→20:03)
[2023-12-11] MEDS: ZYPREXA 2.5 MG PO ×2 (08:19→20:03)
[2023-12-11] MEDS: REFRESH EYE DROPS (PF) 2 DROPS RIGHT EYE ×2 (08:19→20:03)
[2023-12-11] MEDS: FLOMAX PO (08:20)
[2023-12-11] MEDS: VITAMIN B-12 1000 MCG TUBE (08:20)
[2023-12-11] MEDS: DESENEX/MITRAZOL/ZEASORB 1 APPLIC TOPICAL ×2 (08:20→20:06)
[2023-12-11] MEDS: KEFLEX 250 MG/5 ML 500 MG PO ×4 (08:20→21:32)
[2023-12-11 08:28] LABS: Glucose - Point of Care 81 mg/dl (70-99)
[2023-12-11] MEDS: NOVOLOG FLEXPEN-MODERATE RESISTANCE SC ×2 (08:38→12:14)
[2023-12-11 09:08] VITALS: BP 146/61
[2023-12-11 12:15] LABS: Glucose - Point of Care 119 mg/dl (70-99)
[2023-12-11 12:27] VITALS: BP 104/72; PULSE 119; O2SAT 99
--- NOTE | 2023-12-11 12:45 | W.PN.UPDATE ---
Update Note
Progress Note Update
Patient is at this point drowsy and not communicating. He is not restless or agitated.
was present, feels he is reasonably stable, currently on Zyprexa 2.5 mg bid and Buspar 10 mg bid.
Would continue on current meds, is pursuing placement.
--- NOTE | 2023-12-11 13:49 | CM ---
Physician reported long conversation with patient and patient is now DNR. Patient with many discussions with nursing about care needs. Patient plan is to take patient home with [facility]N per nursing, not yet intrested in hospice per CM
discussions with nursing. CM will continue to follow for discharge planning needs.
Plan; home with VN vs home with hospice
[2023-12-11 14:56] VITALS: BP 92/67
--- NOTE | 2023-12-11 15:30 | PTCARENOTE ---
Patient's BP taken by tech 92/67 HR 103, BP retaken manually by this RN 102/66 in LUE. Patient AAO to self, restless at times, occasionally grabbing at qiu catheter tubing and requiring redirection from staff, making confused conversation with
this RN and tech. Qiu catheter draining yellow urine with sediment. MD made aware of events, no new orders at this time. Patient turned and repositioned in bed, bed alarm and medsitter in place.
[2023-12-11 16:40] VITALS: BP 102/66
[2023-12-11] MEDS: LOVENOX 40 MG SC (17:18)
[2023-12-11 22:40] VITALS: BP 104/75
[2023-12-12] MEDS: ATIVAN 0.25 MG PO ×2 (00:08→04:08)
--- NOTE | 2023-12-12 02:41 | PTCARENOTE ---
pt extremely restless overnight with multiple attempts to exit bed. Pt A&Ox1. confused talk, possible hallucinations. Medsitter in place and bed alarm on. High falls risk maintained
[2023-12-12] MEDS: ZYPREXA ZYDIS (ORALLY DISINTEGRATING) 1.25 MG PO (04:05)
[2023-12-12 05:38] LABS: Hematocrit 40.4 % (39.0-52.0); Hemoglobin 12.9 g/dL (13.0-18.0); Mean Corp Hgb Conc. 31.9 g/dL (33.0-37.0); Mean Corpuscular Hgb 28.9 pg (27.0-31.0); Mean Corpuscular Volume 90.6 fL (80.0-94.0); Mean Platelet Volume 9.3 fL (7.4-10.4); Platelet Count 466 10^3/uL (130-400); Red Blood Cell Count 4.46 10^6/uL (4.70-6.10); Red Cell Dist. Width 14.1 % (11.5-14.5); White Blood Cell Count 8.3 10^3/uL (4.8-10.8)
[2023-12-12 05:53] LABS: Blood Urea Nitrogen 25 mg/dl (9-20); Calcium 9.2 mg/dl (8.4-10.2); Carbon Dioxide 28 mmol/L (22-30); Chloride 102 mmol/L (98-107); Estimated Creatinine Clearance 50 ml/min; Glucose 84 mg/dl (70-99); Magnesium 1.9 mg/dl (1.6-2.3); Phosphorus 3.6 mg/dl (2.5-4.5); Potassium 4.4 mmol/L (3.5-5.1); Sodium 135 mmol/L (135-145); eGFR > 60.00
[2023-12-12 07:31] VITALS: BP 110/63
[2023-12-12 08:15] VITALS: BMI 18.9
[2023-12-12] MEDS: VITAMIN B-12 1000 MCG TUBE (09:33)
[2023-12-12] MEDS: ZYPREXA 2.5 MG PO ×2 (09:33→20:08)
[2023-12-12] MEDS: LIPITOR 10 MG TUBE (09:33)
[2023-12-12] MEDS: BUSPAR 10 MG PO ×2 (09:33→20:08)
[2023-12-12] MEDS: REFRESH EYE DROPS (PF) 2 DROPS RIGHT EYE ×2 (09:33→20:08)
[2023-12-12] MEDS: FLOMAX 0.400000000000000022 MG PO (09:33)
[2023-12-12] MEDS: LOW STRENGTH ASPIRIN 81 MG PO (09:35)
[2023-12-12] MEDS: KEFLEX 250 MG/5 ML 500 MG PO ×4 (09:35→22:05)
[2023-12-12] MEDS: DESENEX/MITRAZOL/ZEASORB 1 APPLIC TOPICAL ×2 (09:36→20:10)
[2023-12-12] MEDS: VITAMIN C 1000 MG PO (12:40)
--- NOTE | 2023-12-12 14:42 | W.PN.HOSP.TC ---
Today's Communication/Plan
-
Ongonig dc efforts
Assessment / Plan
Assessment / Plan
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 Patient is usually on Aricept/Zyprexa/Celexa/Buspar. Zyprexa and Celexa have been held because of QT prolongation. Will stop Aricept since this also causes QT prolongation.
Appreciate psychiatry input, who has discussed with pharmacy�Zyprexa does not prolong QT. Mentation much improved on Zyprexa 2.5 mg bid. Continue Ativan as needed.
QT prolongation -QTc 467 ms, was 451 ms, down from 546 ms. Stopped Aricept. Continue holding Celexa. Repeat EKG 12/11 476
Septic shock-secondary to source. He is COVID-19 positive unclear its role. HD stable. Remains Off of vasopressors.
Proteus bacteremia UTI-repeat cultures are sterile. Urine cultures noted. Urine cultures growing Proteus and Pseudomonas. Status post IV Zosyn, currently on Keflex 500 mg PO QID x 14 days (11/27- 12/10)
Severe leukocytosis- resolved, monitor
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 Catheter exchanged on this admission.
Severe lactic acidosis secondary to sepsis-resolved
COVID-19 positivity-in view of sepsis picture was treated as possible active infection. Patient on room air-off of steroids and remdesivir now. Has completed 10-day quarantine, now off isolation.
Acute kidney injury-suspect secondary to sepsis +_ prerenal. No evidence of obstruction on renal ultrasound. Resolved, creatinine now normal.
BPH: resumed Flomax
Anemia-changes in the H&H noted suspect probably dilutional. No obvious external bleeding. Continue to monitor hemoglobin
HFrEF-Clinically no evidence of CHF decompensation. Not on diuretics normally. Continue to follow weights and I&O's. Last known echo from August 2023 shows EF of 35 to 40% and no significant valvular abnormalities.
Essential hypertension -patient is normotensive without any medications
Ambulatory dysfunction
DVT proph: Continue with Lovenox
Full Code
Goals of care - Dr Phan discussed with on 12/08 & 12/10, patient has no quality of life. She has agreed to changing him to DNR. She is hopeful that he will improve. Will likely need to be discharged to either SNF vs memory care unit with PT.
Medically stable for discharge.
Ongoing dispo efforts
Anticipated Discharge: Within 24 hours
Subjective/Interval History
-
Date of Service: December 12, 2023
Not much conversational. But not agitated today.
Objective Data
-
Labs:
Laboratory Results
12/12/23
04:58
WBC 8.3
Hgb 12.9 L
Hct 40.4
Plt Count 466 H D
Sodium 135
Potassium 4.4
Chloride 102
Carbon Dioxide 28
BUN 25 H
Creatinine 0.9
Glucose 84
Calcium 9.2
Vital Signs:
Vital Signs
Temp Pulse Resp BP Pulse Ox
97.3 F 84 16 110/63 94
12/12/23 07:31 12/12/23 07:31 12/12/23 07:31 12/12/23 07:31 12/12/23 08:00
I&O
12/11/23 12/12/23 12/13/23
06:59 06:59 06:59
Intake Total 1200 / 1200 1010 / 1010
Output Total 1325 / 1325 1550 / 1550
Balance -125 / -125 -540 / -540
Review of Systems
-
Unable to obtain full review of systems at this time due to: Dementia
Physical Exam
-
General: No Apparent Distress
HEENT: Moist Mucous Membranes
Respiratory: Clear to Auscultation (Anteriorly) and Non Labored Respirations; Negative Accessory Resp Muscle Use
Cardiac: Regular Rhythm and S1/S2
GI: Soft
Neuro: Awake and Alert; Negative Oriented
Psych: Calm and Confused; Negative Agitated
[2023-12-12 15:28] VITALS: BP 109/72
--- NOTE | 2023-12-12 16:12 | CM ---
Patient out of restraints. PT completed assessment and recommended SNF vs home PT. SNF referrals have been sent. Will follow-up with referrals.
[2023-12-12] MEDS: LOVENOX 40 MG SC (17:19)
[2023-12-12 23:00] VITALS: BP 100/62
[2023-12-13 06:00] VITALS: BMI 18.8
[2023-12-13 07:44] VITALS: BP 94/77
[2023-12-13] MEDS: FLOMAX PO ×2 (08:50→13:49)
[2023-12-13] MEDS: LIPITOR 10 MG PO (08:51)
[2023-12-13] MEDS: VITAMIN B-12 1000 MCG TUBE (08:52)
[2023-12-13] MEDS: BUSPAR 10 MG PO ×2 (08:52→20:33)
[2023-12-13] MEDS: REFRESH EYE DROPS (PF) 2 DROPS RIGHT EYE ×2 (08:53→20:33)
[2023-12-13] MEDS: ZYPREXA PO (08:53)
[2023-12-13] MEDS: ZYPREXA 2.5 MG PO ×2 (09:11→20:33)
[2023-12-13] MEDS: DESENEX/MITRAZOL/ZEASORB 1 APPLIC TOPICAL ×2 (09:11→20:36)
[2023-12-13] MEDS: KEFLEX 250 MG/5 ML 500 MG PO (09:17)
[2023-12-13] MEDS: LIPITOR TUBE (09:24)
--- NOTE | 2023-12-13 11:38 | W.PN.HOSP.TC ---
Today's Communication/Plan
-
DC
Assessment / Plan
Assessment / Plan
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 Patient is usually on Aricept/Zyprexa/Celexa/Buspar. Zyprexa and Celexa have been held because of QT prolongation. Will stop Aricept since this also causes QT prolongation.
Appreciate psychiatry input, who has discussed with pharmacy�Zyprexa does not prolong QT. Mentation much improved on Zyprexa 2.5 mg bid. Continue Ativan as needed.
QT prolongation -QTc 467 ms, was 451 ms, down from 546 ms. Stopped Aricept. Continue holding Celexa. Repeat EKG 12/11 476
Septic shock-secondary to source. He is COVID-19 positive unclear its role. HD stable. Remains Off of vasopressors.
Proteus bacteremia UTI-repeat cultures are sterile. Urine cultures noted. Urine cultures growing Proteus and Pseudomonas. Status post IV Zosyn, currently on Keflex 500 mg PO QID x 14 days (11/27- 12/10).DC further abx
Severe leukocytosis- resolved, monitor
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 Catheter exchanged on this admission.
Severe lactic acidosis secondary to sepsis-resolved
COVID-19 positivity-in view of sepsis picture was treated as possible active infection. Patient on room air-off of steroids and remdesivir now. Has completed 10-day quarantine, now off isolation.
Acute kidney injury-suspect secondary to sepsis +_ prerenal. No evidence of obstruction on renal ultrasound. Resolved, creatinine now normal.
BPH: resumed Flomax
Anemia-changes in the H&H noted suspect probably dilutional. No obvious external bleeding. Continue to monitor hemoglobin
HFrEF-Clinically no evidence of CHF decompensation. Not on diuretics normally. Continue to follow weights and I&O's. Last known echo from August 2023 shows EF of 35 to 40% and no significant valvular abnormalities.
Essential hypertension -patient is normotensive without any medications
Ambulatory dysfunction
DVT proph: Continue with Lovenox
Full Code
Goals of care - Dr Phan discussed with on 12/08 & 12/10, patient has no quality of life. She has agreed to changing him to DNR. She is hopeful that he will improve. Will likely need to be discharged to either SNF vs memory care unit with PT.
Medically stable for discharge.
Ongoing dispo efforts
Anticipated Discharge: Today
Subjective/Interval History
-
Date of Service: December 13, 2023
Remains confused.
Objective Data
-
Vital Signs:
Vital Signs
Temp Pulse Resp BP Pulse Ox
97.8 F 111 18 94/77 95
12/12/23 23:00 12/13/23 07:44 12/13/23 07:44 12/13/23 07:44 12/13/23 07:44
I&O
12/12/23 12/13/23 12/14/23
06:59 06:59 06:59
Intake Total 1010 / 1010 600 / 600
Output Total 1550 / 1550 1175 / 1175
Balance -540 / -540 -575 / -575
Review of Systems
-
Unable to obtain full review of systems at this time due to: Dementia
Physical Exam
-
General: No Apparent Distress
HEENT: Moist Mucous Membranes
Respiratory: Clear to Auscultation
Cardiac: Regular Rhythm and S1/S2
Neuro: Awake and Alert; Negative Oriented
Psych: Calm and Confused (Constantly trying to get out of the bed.); Negative Agitated
[2023-12-13] MEDS: ATIVAN 0.25 MG PO (11:55)
--- NOTE | 2023-12-13 13:26 | CM ---
Addendum entered by Lynn Bellamy 12/15/23 10:58:
On previous message discharge plan of care options were noted: Home with private pay personal care aides and HH; Home with hospice and private care aides; SNF for LTC and apply for Medicaid or private pay; SNF for hospice with private pay for room
and board. Previous discussions addressed that patient is not able to participate in therapy to a degree that he would meet criteria for STR. Also discussed that patient does not meet criteria for AL or memory care units due to his compromised
mobility status.
Original Note:
Patient has been out of restraints for well over 24 hours. Therapy is now recommending terminal makeup operator placement. This CM called and left message for patient's concerning discharge plan of care. has expressed in the recent past that she does
not want to apply for Medicaid for patient.
[2023-12-13 15:00] VITALS: BP 103/74
[2023-12-13] MEDS: ZYPREXA ZYDIS (ORALLY DISINTEGRATING) 1.25 MG PO (15:53)
[2023-12-13] MEDS: LOVENOX SC (18:02)
[2023-12-13 23:45] VITALS: BP 110/82
[2023-12-14 05:06] VITALS: BMI 18.4
[2023-12-14 07:00] VITALS: BP 112/82
[2023-12-14] MEDS: FLOMAX 0.400000000000000022 MG PO (09:39)
[2023-12-14] MEDS: REFRESH EYE DROPS (PF) RIGHT EYE ×2 (09:39→09:47)
[2023-12-14] MEDS: LIPITOR 10 MG PO (09:40)
[2023-12-14] MEDS: VITAMIN B-12 1000 MCG TUBE (09:40)
[2023-12-14] MEDS: DESENEX/MITRAZOL/ZEASORB 1 APPLIC TOPICAL ×2 (09:40→20:50)
[2023-12-14] MEDS: ZYPREXA 2.5 MG PO ×2 (09:40→20:47)
[2023-12-14] MEDS: BUSPAR 10 MG PO ×2 (09:40→20:47)
--- NOTE | 2023-12-14 10:34 | W.PN.UPDATE ---
Update Note
Progress Note Update
patient seen chart reviewed discussed w nursing. late last week it did seem for a moment that mr walker was looking a mite better. he walked with PT. he told dr recinos his first name. today while he is not agitated those positives no longer seem the
case. he was awake. he did look at me when i spoke but he answered every question with a 'no' and did not answer when i asked him his name and where he was. he did appear calm and in no distress. did not make any changes in his current meds. for
psych only zyprexa is scheduled and there is a prn for both zyprexa and ativan used very infrequently. he remains w bed sitter. he seems to me to be calm enough for consideration for snf. he is at this point dnr after dr recinos discussion w his
on the weekend. as patient does seem stable for psych point of view we will sign off. please call us if you would need us to return.
--- NOTE | 2023-12-14 11:44 | CM ---
Addendum entered by Lynn Bellamy 12/14/23 15:53:
came into facility. Discussed discharge options. thought that patient was possibly placed on hospice because she discussed it with nurses over the weekend and 'things in the room seem different.' Unable to elaborate on what seemed
different upon questioning. This CM explained that patient is not on hospice and that she needs to approve for those services which she has not done so as yet. She is considering inpatient hospice or SNF LTC or hospice. She stated that she will
have to pay out of pocket for services.
signed IMM and has decided to appeal the discharge. She feels it will give her more time to figure things out. She has been visiting memory care units and [facility] for patient admission. As in past, this CM explained that patient most likely
will not meet criteria for either. Both USP and memory care requires physical ability to be somewhat mobile. Patient is not. CM did explain that patient can be in a SNF for LTC.
was supplied with a copy of the IMM that was signed on 12/14/23 @ 12:50PM. The Rosana phone # was circled and this CM name and phone # was supplied. CM requested call CM when she has called Rosana with her appeal. Encouraged she call
Rosana as soon as possible and definitely today. She intends on calling at approximately 3:00PM. She has a prior engagement to tour a [facility] facility for .
Will follow through with in AM for status of appeal.
Original Note:
Called and left another message for regarding discharge plan of care. Noted in message that patient has a discharge order in place and CM needs to speak with concerning options that were previously discussed. Also noted that patient has
the right to appeal discharge if not in agreement with being discharged for medical reasons. Inquired whether will file an appeal. Awaiting return call.
[2023-12-14] MEDS: VITAMIN C PO (12:15)
--- NOTE | 2023-12-14 13:12 | PTCARENOTE ---
Had conversation with while she came to obtain appeal from case management. does not know what she wants for . There is a lot of conflicting information she is providing. Dr. Abbasi notified. Case management will follow up with
appeal.
--- NOTE | 2023-12-14 14:56 | W.PN.HOSP.TC ---
Today's Communication/Plan
-
DC
Assessment / Plan
Assessment / Plan
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 Patient is usually on Aricept/Zyprexa/Celexa/Buspar. Zyprexa and Celexa have been held because of QT prolongation. Will stop Aricept since this also causes QT prolongation.
Appreciate psychiatry input, who has discussed with pharmacy�Zyprexa does not prolong QT. Mentation much improved on Zyprexa 2.5 mg bid. Continue Ativan as needed.
QT prolongation -QTc 467 ms, was 451 ms, down from 546 ms. Stopped Aricept. Continue holding Celexa. Repeat EKG 12/11 476
Septic shock-secondary to source. He is COVID-19 positive unclear its role. HD stable. Remains Off of vasopressors.
Proteus bacteremia UTI-repeat cultures are sterile. Urine cultures noted. Urine cultures growing Proteus and Pseudomonas. Status post IV Zosyn, currently on Keflex 500 mg PO QID x 14 days (11/27- 12/10).DC further abx
Severe leukocytosis- resolved, monitor
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 Catheter exchanged on this admission.
Severe lactic acidosis secondary to sepsis-resolved
COVID-19 positivity-in view of sepsis picture was treated as possible active infection. Patient on room air-off of steroids and remdesivir now. Has completed 10-day quarantine, now off isolation.
Acute kidney injury-suspect secondary to sepsis +_ prerenal. No evidence of obstruction on renal ultrasound. Resolved, creatinine now normal.
BPH: resumed Flomax
Anemia-changes in the H&H noted suspect probably dilutional. No obvious external bleeding. Continue to monitor hemoglobin
HFrEF-Clinically no evidence of CHF decompensation. Not on diuretics normally. Continue to follow weights and I&O's. Last known echo from August 2023 shows EF of 35 to 40% and no significant valvular abnormalities.
Essential hypertension -patient is normotensive without any medications
Ambulatory dysfunction
DVT proph: Continue with Lovenox
Full Code
Goals of care - Dr Phan discussed with on 12/08 & 12/10, patient has no quality of life. She has agreed to changing him to DNR. She is hopeful that he will improve. Will likely need to be discharged to either SNF vs memory care unit with PT.
Medically stable for discharge.
Ongoing dispo efforts
DW CM - appealing discharge
Anticipated Discharge: Within 24 hours
Subjective/Interval History
-
Date of Service: December 14, 2023
Await placement
Objective Data
-
Vital Signs:
Vital Signs
Temp Pulse Resp BP Pulse Ox
97.8 F 100 16 112/82 96
12/14/23 07:00 12/14/23 07:00 12/14/23 07:00 12/14/23 07:00 12/14/23 07:00
I&O
12/13/23 12/14/23 12/15/23
06:59 06:59 06:59
Intake Total 600 / 600 190 / 190
Output Total 1175 / 1175 700 / 700
Balance -575 / -575 -510 / -510
Review of Systems
-
Unable to obtain full review of systems at this time due to: Dementia
Physical Exam
-
General: Comfortable
Respiratory: Non Labored Respirations and Accessory Resp Muscle Use
GI: Soft
Neuro: Awake and Alert; Negative Oriented
Psych: Calm and Confused; Negative Agitated
[2023-12-14 15:00] VITALS: BP 118/65
[2023-12-14] MEDS: LOVENOX SC (18:04)
[2023-12-14] MEDS: REFRESH EYE DROPS (PF) 2 DROPS RIGHT EYE (20:46)
[2023-12-14 23:15] VITALS: BP 104/69
[2023-12-15 05:39] VITALS: BMI 18.6
[2023-12-15 07:56] VITALS: BP 111/72
[2023-12-15] MEDS: FLOMAX 0.400000000000000022 MG PO (08:25)
[2023-12-15] MEDS: LIPITOR 10 MG PO (08:25)
[2023-12-15] MEDS: ZYPREXA 2.5 MG PO ×2 (08:25→19:55)
[2023-12-15] MEDS: DESENEX/MITRAZOL/ZEASORB 1 APPLIC TOPICAL ×2 (08:25→19:58)
[2023-12-15] MEDS: BUSPAR 10 MG PO ×2 (08:25→19:55)
[2023-12-15] MEDS: VITAMIN B-12 1000 MCG TUBE (08:25)
[2023-12-15] MEDS: REFRESH EYE DROPS (PF) 2 DROPS RIGHT EYE ×2 (08:25→19:55)
--- NOTE | 2023-12-15 10:50 | CM ---
Addendum entered by Lynn Bellamy 12/16/23 15:05:
Voice message left for regarding content of Detailed Notice of Discharge on 12/14/22.
Original Note:
Received voice message from . She called Rosana and initiated appeal process last night. Case Reference # [id number]. Records prepared by CM department and forwarded for review. Detailed Notice of Discharge prepared. CM will deliver to
when she visits.
--- NOTE | 2023-12-15 12:57 | W.PN.HOSP.TC ---
Today's Communication/Plan
-
Ongoing disposition efforts
Assessment / Plan
Assessment / Plan
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 Patient is usually on Aricept/Zyprexa/Celexa/Buspar. Zyprexa and Celexa have been held because of QT prolongation. stopped Aricept since this also causes QT prolongation.
Appreciate psychiatry input, who has discussed with pharmacy�Zyprexa does not prolong QT. Mentation much improved on Zyprexa 2.5 mg bid. Continue Ativan as needed.
Septic shock-Resolved
Proteus bacteremia UTI-Off of abx now
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 Catheter exchanged on this admission.
COVID-19 positivity-in view of sepsis picture was treated as possible active infection. Patient on room air-off of steroids and remdesivir now. Has completed 10-day quarantine, now off isolation.
Acute kidney injury-suspect secondary to sepsis +_ prerenal. No evidence of obstruction on renal ultrasound. Resolved, creatinine now normal.
BPH: resumed Flomax
Anemia-HH stable
HFrEF-Clinically no evidence of CHF decompensation. Not on diuretics normally. Continue to follow weights and I&O's. Last known echo from August 2023 shows EF of 35 to 40% and no significant valvular abnormalities.
Essential hypertension -patient is normotensive without any medications
Ambulatory dysfunction
DVT proph: Continue with Lovenox
Full Code
Remains Medically stable for discharge.
Ongoing dispo efforts
DW CM - appealing discharge
Anticipated Discharge: Within 24 hours
Subjective/Interval History
-
Date of Service: December 15, 2023
No overnight events.
Remains confused.
Discussed with RN-confused and restless but no agitation.
Objective Data
-
Vital Signs:
Vital Signs
Temp Pulse Resp BP Pulse Ox
98.7 F 100 16 111/72 96
12/15/23 07:56 12/15/23 07:56 12/15/23 07:56 12/15/23 07:56 12/15/23 07:56
I&O
12/14/23 12/15/23 12/16/23
06:59 06:59 06:59
Intake Total 190 / 190 750 / 750
Output Total 700 / 700 800 / 800
Balance -510 / -510 -50 / -50
Review of Systems
-
Unable to obtain full review of systems at this time due to: Dementia
Physical Exam
-
General: No Apparent Distress
HEENT: Moist Mucous Membranes
Respiratory: Clear to Auscultation
Cardiac: Regular Rhythm and S1/S2
Neuro: Awake and Alert; Negative Oriented
Psych: Calm and Confused; Negative Agitated
[2023-12-15 14:59] VITALS: BP 125/93
[2023-12-15 15:09] VITALS: BP 125/93; PULSE 102; O2SAT 98
--- NOTE | 2023-12-15 15:42 | PTOTSP ---
Speech Language Pathology
Pt seen for dysphagia tx as co-treat with PT. Pt sat EOB for P.O. trials. Talking to therapists during session. Minimal visual fixation noted. Pt stated 'I'm going to .' When asked if he was ready, he stated 'yes.' Self-fed regular solids
and thin liquids. Impulsive rate noted with pt drinking 4 ounces of thin liquids consecutively. No overt signs of aspiration. Slightly prolonged mastication noted with regular solids.
Recommend:
(1) Upgrade to IDDSI Level 6 (Soft/Bite-Sized) and Thin liquids
(2) Aspiration precautions: full supervision, sit upright, slow rate, feed only when alert
(3) Meds as tolerated
(4) MACHINE PROGRAMMER to continue to follow
[2023-12-15] MEDS: LOVENOX 40 MG SC (18:07)
[2023-12-15 23:29] VITALS: BP 103/61
[2023-12-16] MEDS: ATIVAN 0.25 MG PO (01:45)
[2023-12-16 06:00] VITALS: BMI 18.6
[2023-12-16 07:00] VITALS: BP 117/62
[2023-12-16] MEDS: LIPITOR 10 MG PO (08:28)
[2023-12-16] MEDS: BUSPAR 10 MG PO ×2 (08:29→20:06)
[2023-12-16] MEDS: LOW STRENGTH ASPIRIN 81 MG PO (08:29)
[2023-12-16] MEDS: REFRESH EYE DROPS (PF) 2 DROPS RIGHT EYE ×2 (08:29→20:06)
[2023-12-16] MEDS: ZYPREXA 2.5 MG PO ×2 (08:29→20:06)
[2023-12-16] MEDS: VITAMIN B-12 1000 MCG TUBE (08:29)
[2023-12-16] MEDS: FLOMAX 0.400000000000000022 MG PO (08:29)
[2023-12-16] MEDS: DESENEX/MITRAZOL/ZEASORB 1 APPLIC TOPICAL ×2 (08:30→20:09)
--- NOTE | 2023-12-16 09:11 | W.PN.HOSP.TC ---
Today's Communication/Plan
-
Ongoing dispo efforts
Assessment / Plan
Assessment / Plan
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 Patient is usually on Aricept/Zyprexa/Celexa/Buspar. Zyprexa and Celexa have been held because of QT prolongation. stopped Aricept since this also causes QT prolongation.
Appreciate psychiatry input, who has discussed with pharmacy�Zyprexa does not prolong QT. Mentation much improved on Zyprexa 2.5 mg bid. Continue Ativan as needed.
Septic shock-Resolved
Proteus bacteremia UTI-Off of abx now
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 Catheter exchanged on this admission.
COVID-19 positivity-in view of sepsis picture was treated as possible active infection. Patient on room air-off of steroids and remdesivir now. Has completed 10-day quarantine, now off isolation.
Acute kidney injury-suspect secondary to sepsis +_ prerenal. No evidence of obstruction on renal ultrasound. Resolved, creatinine now normal.
BPH: resumed Flomax
Anemia-HH stable
HFrEF-Clinically no evidence of CHF decompensation. Not on diuretics normally. Continue to follow weights and I&O's. Last known echo from August 2023 shows EF of 35 to 40% and no significant valvular abnormalities.
Essential hypertension -patient is normotensive without any medications
Ambulatory dysfunction
DVT proph: Continue with Lovenox
Full Code
Remains Medically stable for discharge today as well
Ongoing dispo efforts
DW CM - appealing discharge
Anticipated Discharge: Today
Subjective/Interval History
-
Date of Service: December 16, 2023
Patient alert. Being fed by nurse tech and he seems to eat without any difficulty. He does not converse with either of us.
No agitation
Objective Data
-
Vital Signs:
Vital Signs
Temp Pulse Resp BP Pulse Ox
97.6 F 87 16 117/62 96
12/16/23 07:00 12/16/23 07:00 12/16/23 07:00 12/16/23 07:00 12/16/23 07:00
I&O
12/15/23 12/16/23 12/17/23
06:59 06:59 06:59
Intake Total 750 / 750 240 / 240
Output Total 800 / 800 350 / 350
Balance -50 / -50 -110 / -110
Review of Systems
-
Unable to obtain full review of systems at this time due to: Dementia
Physical Exam
-
General: Comfortable
Respiratory: Non Labored Respirations; Negative Accessory Resp Muscle Use
Neuro: Awake and Alert
Psych: Calm; Negative Agitated
[2023-12-16] MEDS: VITAMIN C 1000 MG PO (12:38)
[2023-12-16 15:00] VITALS: BP 112/80
--- NOTE | 2023-12-16 15:23 | CM ---
Rosana has made determination that patient is ready for discharge and benefits will end on 12/17/23 at 12:00 Noon. Patient will be financially responsible thereafter. This CM spoke with and explained same. Also discussed that [facility] has
accepted patient but they require a financial application beforehand. went to [facility] to complete application this afternoon. She spoke with Jaclyn in admissions. Unfortunately, [facility] does not have an available bed until possibly Tuesday.
[facility] and [facility] also do not have available bed. Director of Case Management notified. has contacted [facility] and visited facility. They are willing to send nurses to evaluate patient. aware of above. Will continue to find
placement and check bed availability at [facility] on Tuesday.
[2023-12-16] MEDS: LOVENOX 40 MG SC (17:32)
[2023-12-16 23:20] VITALS: BP 102/65
[2023-12-17 04:15] VITALS: BMI 18.5
[2023-12-17 07:00] VITALS: BP 104/67
[2023-12-17] MEDS: ZYPREXA 2.5 MG PO ×2 (08:19→20:05)
[2023-12-17] MEDS: VITAMIN B-12 1000 MCG TUBE (08:19)
[2023-12-17] MEDS: BUSPAR 10 MG PO ×2 (08:19→20:05)
[2023-12-17] MEDS: FLOMAX 0.400000000000000022 MG PO (08:19)
[2023-12-17] MEDS: DESENEX/MITRAZOL/ZEASORB 1 APPLIC TOPICAL ×2 (08:20→20:06)
[2023-12-17] MEDS: LIPITOR 10 MG PO (08:20)
[2023-12-17] MEDS: REFRESH EYE DROPS (PF) 2 DROPS RIGHT EYE ×2 (08:20→20:05)
[2023-12-17] MEDS: ATIVAN 0.25 MG PO (12:48)
--- NOTE | 2023-12-17 14:13 | W.PN.HOSP.TC ---
Today's Communication/Plan
-
ongoing dispo efforts
Assessment / Plan
Assessment / Plan
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 Patient is usually on Aricept/Zyprexa/Celexa/Buspar. Zyprexa and Celexa have been held because of QT prolongation. stopped Aricept since this also causes QT prolongation.
Appreciate psychiatry input, who has discussed with pharmacy�Zyprexa does not prolong QT. Mentation much improved on Zyprexa 2.5 mg bid. Continue Ativan as needed.
Septic shock-Resolved
Proteus bacteremia UTI-Off of abx now
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 Catheter exchanged on this admission.
COVID-19 positivity-in view of sepsis picture was treated as possible active infection. Patient on room air-off of steroids and remdesivir now. Has completed 10-day quarantine, now off isolation.
Acute kidney injury-suspect secondary to sepsis +_ prerenal. No evidence of obstruction on renal ultrasound. Resolved, creatinine now normal.
BPH: resumed Flomax
Anemia-HH stable
HFrEF-Clinically no evidence of CHF decompensation. Not on diuretics normally. Continue to follow weights and I&O's. Last known echo from August 2023 shows EF of 35 to 40% and no significant valvular abnormalities.
Essential hypertension -patient is normotensive without any medications
Ambulatory dysfunction
DVT proph: Continue with Lovenox
Full Code
Remains Medically stable for discharge today
Ongoing dispo efforts
DW CM - appealed discharge
Anticipated Discharge: > 48 hours
Subjective/Interval History
-
Date of Service: December 17, 2023
Remains cofused
No agitation
Objective Data
-
Vital Signs:
Vital Signs
Temp Pulse Resp BP Pulse Ox
97.4 F 85 16 104/67 95
12/17/23 07:00 12/17/23 07:00 12/17/23 07:00 12/17/23 07:00 12/17/23 07:00
I&O
12/16/23 12/17/23 12/18/23
06:59 06:59 06:59
Intake Total 240 / 240 1020 / 1020
Output Total 350 / 350 1000 / 1000
Balance -110 / -110
Review of Systems
-
Unable to obtain full review of systems at this time due to: Dementia
Physical Exam
-
General: No Apparent Distress and Comfortable
Respiratory: Non Labored Respirations; Negative Accessory Resp Muscle Use
Neuro: Awake and Alert
Psych: Calm and Confused; Negative Agitated
[2023-12-17 15:00] VITALS: BP 118/76
[2023-12-17] MEDS: ZYPREXA ZYDIS (ORALLY DISINTEGRATING) 1.25 MG PO (15:33)
[2023-12-17] MEDS: HALDOL 1 MG IM (16:28)
[2023-12-17] MEDS: LOVENOX 40 MG SC (17:27)
[2023-12-17] MEDS: FLUSH (NSS) 1 FLUSH IV (20:11)
[2023-12-17 23:07] VITALS: BP 94/65
[2023-12-18] MEDS: ATIVAN 0.25 MG PO (01:46)
[2023-12-18 05:28] VITALS: BMI 18.4
[2023-12-18 06:00] VITALS: BMI 18.4
[2023-12-18 07:00] VITALS: BP 106/80
[2023-12-18] MEDS: ZYPREXA 2.5 MG PO (08:18)
[2023-12-18] MEDS: BUSPAR 10 MG PO ×2 (08:18→22:21)
[2023-12-18] MEDS: VITAMIN B-12 1000 MCG TUBE (08:18)
[2023-12-18] MEDS: FLOMAX 0.400000000000000022 MG PO (08:18)
[2023-12-18] MEDS: LIPITOR 10 MG PO (08:18)
[2023-12-18] MEDS: REFRESH EYE DROPS (PF) 2 DROPS RIGHT EYE ×2 (08:18→22:20)
[2023-12-18] MEDS: DESENEX/MITRAZOL/ZEASORB 1 APPLIC TOPICAL ×2 (08:23→22:20)
[2023-12-18] MEDS: VITAMIN C 1000 MG PO (13:04)
--- NOTE | 2023-12-18 14:52 | W.PN.HOSP.TC ---
Today's Communication/Plan
-
Ongoing dispo efforts
Assessment / Plan
Assessment / Plan
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 Patient is usually on Aricept/Zyprexa/Celexa/Buspar. Zyprexa and Celexa have been held because of QT prolongation. stopped Aricept since this also causes QT prolongation.
Appreciate psychiatry input, who has discussed with pharmacy�Zyprexa does not prolong QT. Mentation much improved on Zyprexa 2.5 mg bid. Continue Ativan as needed.
Septic shock-Resolved
Proteus bacteremia UTI-Off of abx now
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 Catheter exchanged on this admission.
COVID-19 positivity-in view of sepsis picture was treated as possible active infection. Patient on room air-off of steroids and remdesivir now. Has completed 10-day quarantine, now off isolation.
Acute kidney injury-suspect secondary to sepsis +_ prerenal. No evidence of obstruction on renal ultrasound. Resolved, creatinine now normal.
BPH: resumed Flomax
Anemia-HH stable
HFrEF-Clinically no evidence of CHF decompensation. Not on diuretics normally. Continue to follow weights and I&O's. Last known echo from August 2023 shows EF of 35 to 40% and no significant valvular abnormalities.
Essential hypertension -patient is normotensive without any medications
Ambulatory dysfunction
DVT proph: Continue with Lovenox
Full Code
Remains Medically stable for discharge
Ongoing dispo efforts
PADDY CM - appealed discharge
Anticipated Discharge: Within 24 hours
Subjective/Interval History
-
Date of Service: December 18, 2023
PADDY RN , no events overnight
Objective Data
-
Vital Signs:
Vital Signs
Temp Pulse Resp BP Pulse Ox
98.0 F 70 18 106/80 92
12/18/23 07:00 12/18/23 07:00 12/18/23 07:00 12/18/23 07:00 12/18/23 07:00
I&O
12/17/23 12/18/23 12/19/23
06:59 06:59 06:59
Intake Total 1020 / 1020 580 / 580
Output Total 1000 / 1000 725 / 725
Balance 20 / 20 -145 / -145
Review of Systems
-
Unable to obtain full review of systems at this time due to: Dementia
Physical Exam
-
General: No Apparent Distress and Comfortable
Respiratory: Non Labored Respirations; Negative Accessory Resp Muscle Use
Neuro: Awake and Alert; Negative Oriented
Psych: Calm and Confused; Negative Agitated
[2023-12-18 15:00] VITALS: BP 113/71
[2023-12-18] MEDS: LOVENOX 40 MG SC (18:16)
[2023-12-18] MEDS: ZYPREXA PO (22:26)
[2023-12-18 23:07] VITALS: BP 105/58
--- NOTE | 2023-12-19 01:55 | PTCARENOTE ---
Patient sleeping quietly though most of shift. Arousable to voice and tactile stimulation. Breath sounds are diminished throughout. He has an occasional moist NPC. 97% on room air. HRR regular. Incontinent small bm. Wylie draining yellow
urine with sediment. Spouse at bedside until 1am.
[2023-12-19 05:43] VITALS: BMI 18.2
[2023-12-19 06:00] VITALS: BMI 18.2
[2023-12-19 07:15] VITALS: BP 116/76
[2023-12-19] MEDS: FLOMAX 0.400000000000000022 MG PO (08:46)
[2023-12-19] MEDS: LIPITOR 10 MG PO (08:46)
[2023-12-19] MEDS: VITAMIN B-12 1000 MCG TUBE (08:46)
[2023-12-19] MEDS: BUSPAR 10 MG PO ×2 (08:46→20:25)
[2023-12-19] MEDS: REFRESH EYE DROPS (PF) 2 DROPS RIGHT EYE ×2 (08:46→20:25)
[2023-12-19] MEDS: ZYPREXA 2.5 MG PO ×2 (08:46→21:30)
[2023-12-19] MEDS: DESENEX/MITRAZOL/ZEASORB 1 APPLIC TOPICAL ×2 (08:49→20:25)
[2023-12-19] MEDS: LOW STRENGTH ASPIRIN 81 MG PO (08:49)
--- NOTE | 2023-12-19 11:04 | W.PN.HOSP.TC ---
Today's Communication/Plan
-
DC
Assessment / Plan
Assessment / Plan
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 Patient is usually on Aricept/Zyprexa/Celexa/Buspar. Zyprexa and Celexa have been held because of QT prolongation. stopped Aricept since this also causes QT prolongation.
Appreciate psychiatry input, who has discussed with pharmacy�Zyprexa does not prolong QT. Mentation much improved on Zyprexa 2.5 mg bid. Continue Ativan as needed.
Septic shock-Resolved
Proteus bacteremia UTI-Off of abx now
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 Catheter exchanged on this admission.
COVID-19 positivity-in view of sepsis picture was treated as possible active infection. Patient on room air-off of steroids and remdesivir now. Has completed 10-day quarantine, now off isolation.
Acute kidney injury-suspect secondary to sepsis +_ prerenal. No evidence of obstruction on renal ultrasound. Resolved, creatinine now normal.
BPH: resumed Flomax
Anemia-HH stable
HFrEF-Clinically no evidence of CHF decompensation. Not on diuretics normally. Continue to follow weights and I&O's. Last known echo from August 2023 shows EF of 35 to 40% and no significant valvular abnormalities.
Essential hypertension -patient is normotensive without any medications
Ambulatory dysfunction
DVT proph: Continue with Lovenox
Full Code
Remains Medically stable for discharge
Ongoing dispo efforts
Will follow CM today
Anticipated Discharge: Today
Subjective/Interval History
-
Date of Service: December 19, 2023
Discussed with RN-no overnight events.
Objective Data
-
Vital Signs:
Vital Signs
Temp Pulse Resp BP Pulse Ox
97.0 F 97 18 116/76 98
12/19/23 07:15 12/19/23 07:15 12/19/23 07:15 12/19/23 07:15 12/19/23 07:15
I&O
12/18/23 12/19/23 12/20/23
06:59 06:59 06:59
Intake Total 580 / 580 320 / 320
Output Total 725 / 725 750 / 750
Balance -145 / -145 -430 / -430
Review of Systems
-
Unable to obtain full review of systems at this time due to: Dementia
Physical Exam
-
General: No Apparent Distress
HEENT: Moist Mucous Membranes
Respiratory: Non Labored Respirations; Negative Accessory Resp Muscle Use
Cardiac: Regular Rhythm and S1/S2
Neuro: Awake and Alert; Negative Oriented
Psych: Calm and Confused; Negative Agitated
[2023-12-19 15:00] VITALS: BP 124/67
--- NOTE | 2023-12-19 15:21 | PN.CDI ---
CDI
- -
CDI:
Physician Documentation Request
Admit Date: 11/28/23 07:35
Dear Doctor Elroy,
Patient admitted with sepsis and septic shock.
Please review the following and provide your response in the progress notes.
Clinical Indicators:
Height: 5' 8'
Weight: 119 lb 8 oz
BMI: 18.2
Please provide an associated diagnosis related to the abnormal BMI, such as:
Underweight
Cachectic
Anorexia
BMI is not significant
Other
BMI < or = to 19
Underweight
Weight Loss
Cachectic
Anorexia
Use of terms such as suspected, likely, concern for, or probable (associated with a specific diagnosis that is being evaluated, monitored, or treated as if it exists) are acceptable and can be coded in the inpatient setting, when documented at the
time of discharge.
Thank you,
Paty WALKER,RN,CCDS
CDI Specialist
Available via [facility] text
Please use your independent medical judgment in providing your response.
[2023-12-19] MEDS: ZYPREXA ZYDIS (ORALLY DISINTEGRATING) 1.25 MG PO (16:39)
--- NOTE | 2023-12-19 17:04 | CM ---
Patient's completed financial application at [facility]. [facility] business office is reviewing for admission. Medsitter and bed alarm remains in place. [facility] admissions said both need to be d/cd before they will accept.
[facility] letter was explained to by regional business development manager and Director of CM. did sign. Patient needs to be discharged from by 12M 12/20/23 before patient becomes financially responsible for daily charges. expressed
understanding to this CM.
[2023-12-19] MEDS: LOVENOX SC (18:05)
[2023-12-19 23:00] VITALS: BP 97/65
[2023-12-20] MEDS: ATIVAN 0.25 MG PO (02:30)
[2023-12-20 05:31] VITALS: BMI 18.7
[2023-12-20 06:00] VITALS: BMI 18.7
[2023-12-20 07:29] VITALS: BP 128/81
[2023-12-20] MEDS: LIPITOR 10 MG PO (09:21)
[2023-12-20] MEDS: ZYPREXA 2.5 MG PO ×2 (09:21→21:21)
[2023-12-20] MEDS: FLOMAX 0.400000000000000022 MG PO (09:21)
[2023-12-20] MEDS: REFRESH EYE DROPS (PF) 2 DROPS RIGHT EYE ×2 (09:21→21:22)
[2023-12-20] MEDS: BUSPAR 10 MG PO ×2 (09:21→21:21)
[2023-12-20] MEDS: VITAMIN B-12 1000 MCG TUBE (09:21)
[2023-12-20] MEDS: DESENEX/MITRAZOL/ZEASORB 1 APPLIC TOPICAL ×2 (09:22→21:22)
--- NOTE | 2023-12-20 09:58 | CM ---
Addendum entered by Obdulia Washburn RN 12/20/23 16:08:
CM spoke with Silas from [place] and they are able to accept the patient on pending all paperwork completed. Per Silas, he is waiting on the patient's to commit to transfer. Copy of homecare agencies left at bedside as requested.
Original Note:
Reviewed the chart notes and spoke with Silas from [facility]. Clinicals faxed for review ([phone]). Per Silas, RN will be out to assess the patient between 1100 and 1200 today. RN updated. If appropriate for their facility they will
be able to admit on . CM continues to be available to patient/family and is monitoring medical plan for needs at discharge.
Plan: Discharge to SNF or [facility]TER[facility] once bed found and financial information reviewed by facility business office.
--- NOTE | 2023-12-20 10:49 | W.PN.HOSP.TC ---
Addendum entered and electronically signed by Roger Abbasi MD 12/29/23 16:22:
BMI 18.2-underweight
Original Note:
Today's Communication/Plan
-
DC
Assessment / Plan
Assessment / Plan
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 Patient is usually on Aricept/Zyprexa/Celexa/Buspar. Zyprexa and Celexa have been held because of QT prolongation. stopped Aricept since this also causes QT prolongation.
Appreciate psychiatry input, who has discussed with pharmacy�Zyprexa does not prolong QT. Mentation much improved on Zyprexa 2.5 mg bid. Continue Ativan as needed.
Septic shock-Resolved
Proteus bacteremia UTI-Off of abx now
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 Catheter exchanged on this admission.
COVID-19 positivity-in view of sepsis picture was treated as possible active infection. Patient on room air-off of steroids and remdesivir now. Has completed 10-day quarantine, now off isolation.
Acute kidney injury-suspect secondary to sepsis +_ prerenal. No evidence of obstruction on renal ultrasound. Resolved, creatinine now normal.
BPH: resumed Flomax
Anemia-HH stable
HFrEF-Clinically no evidence of CHF decompensation. Not on diuretics normally. Continue to follow weights and I&O's. Last known echo from August 2023 shows EF of 35 to 40% and no significant valvular abnormalities.
Essential hypertension -patient is normotensive without any medications
Ambulatory dysfunction
DVT proph: Continue with Lovenox
DNR
Remains Medically stable for discharge
DW CM today -ongoing dispo efforts
Anticipated Discharge: Today
Subjective/Interval History
-
Date of Service: December 20, 2023
No events overnight
Await placement
Objective Data
-
Vital Signs:
Vital Signs
Temp Pulse Resp BP Pulse Ox
97.5 F 95 16 128/81 95
12/20/23 07:29 12/20/23 07:29 12/20/23 07:29 12/20/23 07:29 12/20/23 07:29
I&O
12/19/23 12/20/23 12/21/23
06:59 06:59 06:59
Intake Total 320 / 320 1180 / 1180
Output Total 750 / 750 900 / 900
Balance -430 / -430 280 / 280
Review of Systems
-
Unable to obtain full review of systems at this time due to: Dementia
Physical Exam
-
General: No Apparent Distress
HEENT: Moist Mucous Membranes
Respiratory: Clear to Auscultation and Non Labored Respirations; Negative Accessory Resp Muscle Use
Cardiac: Regular Rhythm and S1/S2
Neuro: Awake and Alert; Negative Oriented
Psych: Calm and Confused; Negative Agitated
[2023-12-20 13:07] VITALS: BP 102/69; PULSE 81; O2SAT 97
[2023-12-20] MEDS: VITAMIN C PO (13:19)
[2023-12-20 15:28] VITALS: BP 129/80
--- NOTE | 2023-12-20 16:59 | CM ---
Call and spoke to . Due to [facility] unable to accept unless patient is off Medsitter and [facility] unable to accept until December 21 , will hold financial liability until December 21 if patient is not discharged on .
Per Mrs. Benitez she will call Silas at [facility] this afternoon to start admission paperwork so patient can be discharged to [facility] on December 21. Will update CM in morning and have her reach out to [facility] , as requested by Mrs. Benitez, to
see if there is any other information that they need from us to facilitate transfer and to confirm they will supply any needed pieces of DME.
[2023-12-20] MEDS: ZYPREXA ZYDIS (ORALLY DISINTEGRATING) 1.25 MG PO (18:01)
[2023-12-20] MEDS: LOVENOX 40 MG SC (18:07)
--- NOTE | 2023-12-20 21:00 | PTCARENOTE ---
Pt off the medsitter monitor, calm and cooperative at this time. Remains confused and forgetful, bed alarm in place.
[2023-12-20 23:08] VITALS: BP 101/65
--- NOTE | 2023-12-21 04:06 | DOWNTIME ---
There was a [employer] Downtime on 12/21/2023 from 0100 to 12/21/2023 at 0322. Downtime documentation of patient's care, including medication administrations, has been reconciled in the electronic record per guidelines. Refer to the
patient's paper chart under the miscellaneous tab to see printed paper medication records and downtime forms.
[2023-12-21 05:42] VITALS: BMI 18.4
[2023-12-21 06:00] VITALS: BMI 18.4
[2023-12-21 08:16] VITALS: BP 129/84
--- NOTE | 2023-12-21 08:18 | PTCARENOTE ---
Patient was asleep during shift change around 7:20, however bed alarm went off ; and staff ran immediately into room and found patient standing next to bed. Patient re-oriented and guided back to bed. Medsitter monitor re-started for safety.
[2023-12-21] MEDS: BUSPAR 10 MG PO ×2 (08:47→20:14)
[2023-12-21] MEDS: LIPITOR 10 MG PO (08:47)
[2023-12-21] MEDS: FLOMAX 0.400000000000000022 MG PO (08:47)
[2023-12-21] MEDS: REFRESH EYE DROPS (PF) 2 DROPS RIGHT EYE ×2 (08:47→20:14)
[2023-12-21] MEDS: VITAMIN B-12 1000 MCG TUBE (08:47)
[2023-12-21] MEDS: ZYPREXA 2.5 MG PO ×2 (08:47→20:14)
[2023-12-21] MEDS: DESENEX/MITRAZOL/ZEASORB 1 APPLIC TOPICAL ×2 (08:47→20:15)
--- NOTE | 2023-12-21 11:25 | W.PN.HOSP.TC ---
Addendum entered and electronically signed by Montana Bolaños MD 12/21/23 15:23:
Assessment related. He patient is in need of a semi-electric hospital bed with foam mattress due to the need to elevate the head of the bed above 30 degree to prevent aspiration and to facilitate daily frequent repositioning to prevent bed ulcer
and pressure points.
Patient also need a wheelchair to facilitate ambulation and getting around as she cannot ambulate on her own otherwise she will be at risk of fall and fracture.
Original Note:
Today's Communication/Plan
-
Discussed with the nurse
Assessment / Plan
Assessment / Plan
Physical exam:
General: Lethargic, pleasantly confused, does not follows command fully and does not answer all the question,, not in distress.
HEENT: No active discharge, ecchymosis or bruising, moist lips, tongue and mucous membrane.
Eyes: No discharge or red conjunctiva, no nystagmus, pupils are reactive and equal
Neck:Supple, no JVD no bruit no goiter.
Respiratory: Normal AP contour and diameter, normal chest wall movement, normal respiratory effort, no respiratory distress,
Lungs: Good air entry bilaterally, no wheezing or rhonchi, no rales or crackles
Heart: S1, S2 regular, normal rate, no added sound.
Gastrointestinal: Positive bowel sounds, soft, nontender, no guarding or rigidity or organomegaly
Extremities: No pitting edema, good peripheral pulses, good range of motion
Neurological: Pleasantly confused, cognitive decline and dysfunction appreciated, moves extremities freely, does not follows command fully
Assessment and plan:
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 Patient is usually on Aricept/Zyprexa/Celexa/Buspar. Zyprexa and Celexa have been held because of QT prolongation. stopped Aricept since this also causes QT prolongation.
Appreciate psychiatry input, who has discussed with pharmacy�Zyprexa does not prolong QT.
Back on Zyprexa 2.5 mg bid. And as needed.
He is back on one-to-one or telemetry observation monitoring again because he was seen standing along on the side of the bed. Was put him at risk for fall.
High risk for fall
Pending placement once off one-to-one
Septic shock-Resolved, secondary to Pseudomonas UTI
Proteus bacteremia UTI-Off of abx now
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 Catheter exchanged on this admission.
COVID-19 positivity-in view of sepsis picture was treated as possible active infection. Patient on room air-off of steroids and remdesivir now. Has completed 10-day quarantine, now off isolation.
Acute kidney injury-suspect secondary to sepsis +_ prerenal. No evidence of obstruction on renal ultrasound. Resolved, creatinine now normal.
BPH: resumed Flomax
Anemia-HH stable
HFrEF-, stage clinically no evidence of CHF decompensation. Not on diuretics normally. Continue to follow weights and I&O's. Last known echo from August 2023 shows EF of 35 to 40% and no significant valvular abnormalities.
Essential hypertension -patient is normotensive without any medications
Ambulatory dysfunction: Needs placement
DVT proph: Continue with Lovenox
DNR
Remains Medically stable for discharge
Pending clearance of safety observation for disposition while disposition workup in progress
Discussed with the nurse
Anticipated Discharge: 24 - 48 hours
Subjective/Interval History
-
Date of Service: December 21, 2023
Seen and examined, awake and alert, nurse and nursing at the bedside, he is lethargic, close is eyes, moves extremities well, does not answer or quick question, the nurse found him standing in the side of the bed therefore they started back the tele
observation and one-to-one.
Objective Data
-
Vital Signs:
Vital Signs
Temp Pulse Resp BP Pulse Ox
97.3 F 107 15 129/84 95
12/21/23 08:16 12/21/23 08:16 12/21/23 08:16 12/21/23 08:16 12/21/23 08:16
I&O
12/20/23 12/21/23 12/22/23
07:59 07:59 07:59
Intake Total 1180 / 1180 320 / 320
Output Total 900 / 900 1375 / 1375
Balance 280 / 280 -1055 / -1055
--- NOTE | 2023-12-21 12:22 | CM ---
Addendum entered by Lynn Bellamy 12/21/23 16:11:
Shantelle needed additional documentation from MD for DME submission to insurance. Completed and forwarded to [facility].
Silas at [facility] e-mailed a form , Documentation of Medical Evaluation, for MD completion prior to patient's discharge. Form was completed, MD signed and forwarded to [facility] @ [phone] (f).
Awaiting DME insurance approval and delivery time.
Addendum entered by Lynn Bellamy 12/21/23 13:08:
[facility] unable to accept patient with bed alarm and medsitter. Patient is back on medsitter at this time. Per [facility], must be off both bed alarm and medsitter for at least 24 hours.
Original Note:
Called and spoke with Silas ([phone]) in sales at [facility] in [place]. Confirmed bed in memory care is available for patient after 3:00PM on , 12/22/23. Prior to accepting patient they require patient to have a hospital bed,
wheelchair and shower chair delivered to [facility]. Shower chair will be private pay. This CM called [facility] and faxed order and documents for review and insurance approval. Pop, liaison at [facility], will notify CM of insurance determination and an ETA
for equipment delivery. Questionable if delivery will be before 3:00 PM on 12/22/23.
Per MD, Lovenox will be discontinued at the time of discharge.
NURSE TO NURSE REPORT # [phone] ask for Mariaelena, Field App[employer]
FAX # [phone]
[2023-12-21 15:44] VITALS: BP 114/71
[2023-12-21] MEDS: LOVENOX 40 MG SC (17:45)
[2023-12-21 22:47] VITALS: BP 104/65
[2023-12-22] MEDS: ZYPREXA ZYDIS (ORALLY DISINTEGRATING) 1.25 MG PO ×2 (01:04→20:51)
[2023-12-22] MEDS: ATIVAN 0.25 MG PO ×3 (01:35→13:13)
[2023-12-22 05:31] VITALS: BMI 18.4
[2023-12-22 07:00] VITALS: BP 102/66
[2023-12-22] MEDS: ZYPREXA 2.5 MG PO ×2 (08:37→20:50)
[2023-12-22] MEDS: BUSPAR 10 MG PO ×2 (08:37→20:50)
[2023-12-22] MEDS: FLOMAX 0.400000000000000022 MG PO (08:37)
[2023-12-22] MEDS: REFRESH EYE DROPS (PF) 2 DROPS RIGHT EYE ×2 (08:37→20:50)
[2023-12-22] MEDS: VITAMIN B-12 1000 MCG TUBE (08:37)
[2023-12-22] MEDS: LIPITOR 10 MG PO (08:37)
[2023-12-22] MEDS: DESENEX/MITRAZOL/ZEASORB 1 APPLIC TOPICAL ×2 (08:38→20:51)
[2023-12-22 12:19] VITALS: BP 114/66; PULSE 95
[2023-12-22] MEDS: VITAMIN C 1000 MG PO (13:13)
--- NOTE | 2023-12-22 13:42 | W.DS.TRANS ---
DC Summary - Sp[employer]
-
Discharge Instructions:
Discharge Diagnosis/Procedures Septic shock
Proteus bacteremic UTI
Chronic Wylie catheter
COVID-19 infection
RAFFI which resolved
Dementia
Diet Other diet,2 Gram Sodium
Additional Diets IDDSI 4 pur�ed diet with thin liquids
Activity As tolerated
Driving Restrictions No driving
Bathing Restrictions None
Specialty Instructions Weigh Daily
Instructions:
Stand-Alone Forms:
Changes to Home Medications: No
Discharge Medications:
DC Medications w/original date entered in [facility] [employer]
ascorbic acid (vitamin C) 500 mg tablet (Vitamin C) 1,000 mg PO Q48H Supplement 07/22/21
aspirin 81 mg chewable tablet 81 mg PO MOFR@08 Blood Pressure 07/22/21
citalopram 40 mg tablet 40 mg PO DAILY Depression 07/22/21
cyanocobalamin (vitamin B-12) 1,000 mcg tablet 1,000 mcg PO DAILY Supplement 07/22/21
olanzapine 2.5 mg tablet 2.5 mg PO HS Mental Health/Anxiety 07/22/21
tamsulosin 0.4 mg capsule 0.4 mg PO DAILY Urinary Issue 07/22/21
buspirone 10 mg tablet 10 mg PO BID Mental Health/Anxiety 09/28/23
calcium carbonate (Calcium 600) 600 mg PO BID Supplement 09/28/23
donepezil 10 mg tablet 10 mg PO HS Neurological Condition 09/28/23
lovastatin 20 mg tablet 20 mg PO HS High Cholesterol 09/28/23
acetaminophen 325 mg tablet (Tylenol) 650 mg PO Q4HPRN PRN pain, T>100F 11/28/23
bisacodyl 10 mg rectal suppository (Dulcolax (bisacodyl)) 10 mg ND DAILYPRN PRN CONSTIPATION 11/28/23
calcium carbonate 500 mg PO Q8HPRN PRN HEARTBURN 11/28/23
magnesium hydroxide 400 mg/5 mL oral suspension 30 ml PO DAILYPRN PRN NO BM IN 3 DAYS 11/28/23
nitroglycerin 0.4 mg sublingual tablet 0.4 mg sublingual Q5MPRN PRN chest pain 11/28/23
polyvinyl alcohol-povidone (PF) 1.4 %-0.6 % eye drops in a dropperette (Refresh Classic (PF)) 2 drp RIGHT EYE BID Eye Condition 11/28/23
sodium phosphates 19 gram-7 gram/118 mL enema (Fleet Enema) 118 ml ND DAILYPRN PRN dulcolax ineffective 11/28/23
lorazepam 0.5 mg tablet 0.5 mg PO TID PRN Mental Health/Anxiety #0 tabs 12/01/23
Home Medication Changes
Pending Results: No
Additional Pending Results:
Physical exam:
General: Lethargic, pleasantly confused, does not follows command fully and does not answer all the question,, not in distress.
HEENT: No active discharge, ecchymosis or bruising, moist lips, tongue and mucous membrane.
Eyes: No discharge or red conjunctiva, no nystagmus, pupils are reactive and equal
Neck:Supple, no JVD no bruit no goiter.
Respiratory: Normal AP contour and diameter, normal chest wall movement, normal respiratory effort, no respiratory distress,
Lungs: Good air entry bilaterally, no wheezing or rhonchi, no rales or crackles
Heart: S1, S2 regular, normal rate, no added sound.
Gastrointestinal: Positive bowel sounds, soft, nontender, no guarding or rigidity or organomegaly
Extremities: No pitting edema, good peripheral pulses, good range of motion
Neurological: Pleasantly confused, cognitive decline and dysfunction appreciated, moves extremities freely, does not follows command fully
Condition on discharge: Awake, alert and disoriented, mildly and pleasantly confused, answer some question and does not follows command fully, not able to make own decision and take care of activities of daily living, speech clear and comprehensive
when he answers, continent of the bowel and bladder, ambulate wit press operator assistant, going to memory unit assisted living, high risk for fall
[2023-12-22 15:25] VITALS: BP 103/62
--- NOTE | 2023-12-22 16:36 | W.DCSUMMARY ---
Discharge Summary
Discharge Data
Date of Admission: 11/28/23
Date of Discharge: 12/22/23
-
Pending Results: No
Hospital Course
Discharging Physician : Dr. Montana Bolaños
Disposition : Memory care assisted living
Primary care physician :
Principal Discharge diagnosis :
1. Sepsis and septic shock secondary to urinary tract infection
2. Agitation and confusion
3. Advanced dementia
4. Acute kidney injury resolved
5. Metabolic acidosis resolved
6. BPH
7. Chronic systolic congestive heart failure EF around 35 to 40%, stable
8. Hypertension
9. Ambulatory dysfunction
Chronic Discharge diagnosis :
History of present illness:
who p/w CC fever. Patient has underlying dementia and currently is encephalopathic from septic shock. The patient cannot give a history at this time. History obtained from discussion with the ER attending. As per EMS, initially there was concern
for seizure activity but the patient was found to have rigors upon arrival. He was found to have a fever of 105.2 �F. No reports of any other symptoms.
Hospital Course :
So patient admitted with a mental status change attributed to sepsis and septic shock, given 2 and half liter bolus normal saline and started on Levophed and eventually admitted in ICU, the concern was a UTI as a source, given cefepime in the course
continued.
Gradually he was improving and able to get off pressor and eventually transferred to regular floor. Antibiotic continued as urine grew Proteus.
The main issue was mentation change and worsening dementia,during hospitalization require one-to-one observation for quite some time which can delay his discharge to a assisted.
Also has some acute kidney injury which has been resolved. He was closely monitored.
The main issue is his safety and wellbeing specially because of his dementia as he was closely monitored with one-to-one and telemetry camera monitoring.
Eventually been accepted by memory care unit therefore he was discharged today at the require hospital bed and a wheelchair they were all been ordered.
Important imaging findings :
None
Changes to Home Medications: No
Discharge Medications:
DC Medications w/original date entered in [facility]
ascorbic acid (vitamin C) 500 mg tablet (Vitamin C) 1,000 mg PO Q48H Supplement 07/22/21
aspirin 81 mg chewable tablet 81 mg PO MOFR@08 Blood Pressure 07/22/21
citalopram 40 mg tablet 40 mg PO DAILY Depression 07/22/21
cyanocobalamin (vitamin B-12) 1,000 mcg tablet 1,000 mcg PO DAILY Supplement 07/22/21
olanzapine 2.5 mg tablet 2.5 mg PO HS Mental Health/Anxiety 07/22/21
tamsulosin 0.4 mg capsule 0.4 mg PO DAILY Urinary Issue 07/22/21
buspirone 10 mg tablet 10 mg PO BID Mental Health/Anxiety 09/28/23
calcium carbonate (Calcium 600) 600 mg PO BID Supplement 09/28/23
donepezil 10 mg tablet 10 mg PO HS Neurological Condition 09/28/23
lovastatin 20 mg tablet 20 mg PO HS High Cholesterol 09/28/23
acetaminophen 325 mg tablet (Tylenol) 650 mg PO Q4HPRN PRN pain, T>100F 11/28/23
bisacodyl 10 mg rectal suppository (Dulcolax (bisacodyl)) 10 mg MN DAILYPRN PRN CONSTIPATION 11/28/23
calcium carbonate 500 mg PO Q8HPRN PRN HEARTBURN 11/28/23
magnesium hydroxide 400 mg/5 mL oral suspension 30 ml PO DAILYPRN PRN NO BM IN 3 DAYS 11/28/23
nitroglycerin 0.4 mg sublingual tablet 0.4 mg sublingual Q5MPRN PRN chest pain 11/28/23
polyvinyl alcohol-povidone (PF) 1.4 %-0.6 % eye drops in a dropperette (Refresh Classic (PF)) 2 drp RIGHT EYE BID Eye Condition 11/28/23
sodium phosphates 19 gram-7 gram/118 mL enema (Fleet Enema) 118 ml MN DAILYPRN PRN dulcolax ineffective 11/28/23
lorazepam 0.5 mg tablet 0.5 mg PO TID PRN Mental Health/Anxiety #0 tabs 12/01/23
Home Medication Changes
Pending Results: No
Additional Pending Results:
Physical exam:
General: Lethargic, pleasantly confused, does not follows command fully and does not answer all the question,, not in distress.
HEENT: No active discharge, ecchymosis or bruising, moist lips, tongue and mucous membrane.
Eyes: No discharge or red conjunctiva, no nystagmus, pupils are reactive and equal
Neck:Supple, no JVD no bruit no goiter.
Respiratory: Normal AP contour and diameter, normal chest wall movement, normal respiratory effort, no respiratory distress,
Lungs: Good air entry bilaterally, no wheezing or rhonchi, no rales or crackles
Heart: S1, S2 regular, normal rate, no added sound.
Gastrointestinal: Positive bowel sounds, soft, nontender, no guarding or rigidity or organomegaly
Extremities: No pitting edema, good peripheral pulses, good range of motion
Neurological: Pleasantly confused, cognitive decline and dysfunction appreciated, moves extremities freely, does not follows command fully
Condition on discharge: Awake, alert and disoriented, mildly and pleasantly confused, answer some question and does not follows command fully, not able to make own decision and take care of activities of daily living, speech clear and comprehensive
when he answers, continent of the bowel and bladder, ambulate wit assistant dean, going to memory unit assisted living, high risk for fall
Time spent on this discharge was 55 minutes
Discharge Plan
-
Patient Disposition: Long-Term/SNF
Discharge Diagnosis/Procedures: Septic shock
Proteus bacteremic UTI
Chronic Wylie catheter
COVID-19 infection
RAFFI which resolved
Dementia
Diet: 2 Gram Sodium and Other diet
Additional Diets: IDDSI 4 pur�ed diet with thin liquids
Activity: As tolerated
Driving Restrictions: No driving
Bathing Restrictions: None
Specialty Instructions: Weigh Daily- Call MD for wt gain/loss 3 lbs overnight/5 lbs in 1 week
Referrals:
Nicko Fulton MD [Family Provider] - in less than 1 week
Prescriptions:
Continued
citalopram 40 MG tablet
40 mg PO DAILY
cyanocobalamin (vitamin B-12) 1,000 MCG tablet
1,000 mcg PO DAILY
olanzapine 2.5 MG tablet
2.5 mg PO HS
ascorbic acid (vitamin C) [Vitamin C] 500 MG tablet
1,000 mg PO Q48H
tamsulosin 0.4 MG capsule
0.4 mg PO DAILY
aspirin 81 MG tablet,chewable
81 mg PO MOFR@08
donepezil 10 mg tablet
10 mg PO HS
calcium carbonate [Calcium 600] 600 mg calcium (1,500 mg) Tablet
600 mg PO BID
buspirone 10 mg tablet
10 mg PO BID
lovastatin 20 mg Tablet
20 mg PO HS
Patient Comments:
09/28/2023: Physician wrote to change to Atorvastatin, has not been picked up yet
bisacodyl [Dulcolax (bisacodyl)] 10 mg Suppository
10 mg MN DAILYPRN MDD if MoM ineffective PRN (Reason: CONSTIPATION)
calcium carbonate 500 mg calcium (1,250 mg) Tablet,Chewable
500 mg PO Q8HPRN PRN (Reason: HEARTBURN)
acetaminophen [Tylenol] 325 mg Tablet
650 mg PO Q4HPRN PRN (Reason: pain, T>100F)
magnesium hydroxide 400 mg/5 mL Suspension
30 ml PO DAILYPRN PRN (Reason: NO BM IN 3 DAYS)
Refresh Classic (PF) 1.4-0.6 % Dropperette
2 drp RIGHT EYE BID
Fleet Enema 19-7 gram/118 mL Enema
118 ml MN DAILYPRN PRN (Reason: dulcolax ineffective)
nitroglycerin 0.4 mg Tablet, Sublingual
0.4 mg SUBLINGUAL Q5MPRN PRN (Reason: chest pain)
Changed
lorazepam 0.5 mg Tablet
0.5 mg PO TID PRN (Reason: Mental Health/Anxiety) Qty: 0 0RF
Discharge Orders:
Discharge Patient (As Directed); Ordered 12/13/23
Ordered By: Roger Abbasi
Discharge Date and Time
Print Language: [place]
--- NOTE | 2023-12-22 16:52 | CM ---
As per 12/21/23 CM note, patient was scheduled for discharge to [facility] on this date. [facility] delivered equipment at 2:50PM. Silas from [facility] said he did not want patient admitted before 3:00 PM. Transport was scheduled for 3:30pm. This CM left
messages for Silas at [facility]. Transport arrived and RN attempted to give report to nurse at [facility] she was told patient was not to be admitted to until 12/23/23. This CM called and spoke with Silas. He said he did not have a chance to
examine the DME that was delivered and the nursing staff leaves at 5:00-5:30PM. Transport had left with patient. Silas said he is sending patient back to . This CM asked him how we can make this discharge and admission work. He placed me on
hold to speak with his nursing team. Upon his return, he said they will not accept patient and have instructed the ambulance to return patient to . They are willing to accept patient on Tuesday12/22/33. Silas also informed me that they need
scripts for the medications. , Director of Case Management and team notified.
[2023-12-22] MEDS: LOVENOX 40 MG SC (18:20)
[2023-12-22 23:37] VITALS: BP 91/60
[2023-12-23 05:42] VITALS: BMI 18.0
[2023-12-23 07:00] VITALS: BP 105/63
[2023-12-23] MEDS: BUSPAR 10 MG PO (08:01)
[2023-12-23] MEDS: REFRESH EYE DROPS (PF) 2 DROPS RIGHT EYE (08:01)
[2023-12-23] MEDS: FLOMAX 0.400000000000000022 MG PO (08:01)
[2023-12-23] MEDS: VITAMIN B-12 1000 MCG TUBE (08:01)
[2023-12-23] MEDS: ZYPREXA 2.5 MG PO (08:02)
[2023-12-23] MEDS: LIPITOR 10 MG PO (08:02)
[2023-12-23] MEDS: LOW STRENGTH ASPIRIN 81 MG PO (09:37)
[2023-12-23] MEDS: DESENEX/MITRAZOL/ZEASORB 1 APPLIC TOPICAL (09:37)
[2023-12-23 11:00] VITALS: BP 96/65
--- NOTE | 2023-12-23 12:04 | W.PN.UPDATE ---
Update Note
Progress Note Update
Patient was discharged 12/22/2023, [facility] refused to accept the patient.
[facility] agrees to accept the patient today, 12/23/2023.
Patient is in stable condition, there are no changes.
--- NOTE | 2023-12-23 15:24 | CM ---
Patient has been medically cleared for discharge to [facility] memory [facility] unit. Transportation scheduled for 1:00PM.
NURSE TO NURSE REPORT # [phone] Mariaelena
FAX # [phone]
== END 2023-12-23 13:32 | DRG 698 ==
LOC: 2 NORTH 07:35
PROVIDERS: Internal Medicine; Nurse Practitioner Primary Care; ADMITTING PHYSICIAN Internal Medicine; ATTENDING PHYSICIAN Family Medicine; CONSULT PHYSICIAN Student in an Organized Health Care Education/Training Program; EMERGENCY PHYSICIAN Emergency Medicine; FAMILY PHYSICIAN Internal Medicine; OTHER PHYSICIAN Internal Medicine; OTHER PHYSICIAN Psychiatry & Neurology Psychiatry
DX: T83.518A Infection and inflammatory reaction due to other urinary catheter, initial encounter (principal); A41.9 Sepsis, unspecified organism; G92.8 Other toxic encephalopathy; N17.0 Acute kidney failure with tubular necrosis; R65.21 Severe sepsis with septic shock; U07.1 COVID-19; N39.0 Urinary tract infection, site not specified; E87.20 Acidosis, unspecified; I50.22 Chronic systolic (congestive) heart failure; F02.818 Dementia in other diseases classified elsewhere, unspecified severity, with other behavioral disturbance; Z68.1 Body mass index [BMI] 19.9 or less, adult; R63.6 Underweight; R33.8 Other retention of urine; N40.1 Benign prostatic hyperplasia with lower urinary tract symptoms; I11.0 Hypertensive heart disease with heart failure; F32.A Depression, unspecified; G30.9 Alzheimer's disease, unspecified; Y84.6 Urinary catheterization as the cause of abnormal reaction of the patient, or of later complication, without mention of misadventure at the time of the procedure
CPT/HCPCS: 51702; 51798; 71045; 74018; 76770; 80048; 80053; 80076; 81003; 81015; 82962; 83605; 83735; 84100; 85025; 85027; 85610; 87040; 87070; 87077; 87086; 87149; 87186; 87205; 87502; 87811; 92526; 92610; 93005; 96361; 96374; 96375; 97110; 97116; 97163; 97530; 99291; J0248